=== PATIENT | female | born 1960 | race Caucasian/White ===

== ENCOUNTER → 2018-02-28 10:45 | Outpatient (CLI) | payer OTHER, SELFPAY ==
--- NOTE | 2018-02-28 10:47 | ECHOD_ITS ---
Reason For Study: SOB Procedure This was a 2D Doppler, Color Flow transthoracic echocardiogram. Exam performed in department. Left Ventricle Normal LV size. Left ventricular systolic function is normal. The estimated ejection fraction is 60 %. Transmitral and pulmonary venous doppler flow suggestive of impaired relaxation of left ventricle. No regional wall motion abnormalities noted. Right Ventricle Normal RV size. Normal systolic function. Atria Normal left atrium. Normal right atrium. Mitral Valve Normal mitral valve. Tricuspid Valve Normal tricuspid valve. Trivial tricuspid valve insufficiency. Aortic Valve Normal aortic valve. Trisinus/trileaflet aortic valve. Pulmonic Valve Normal pulmonic valve. Great Vessels Normal aortic root. The pulmonary artery is normal size. Normal inferior vena cava. Pericardium/Pleural No pericardial effusion. MMode/2D Measurements & Calculations LVIDd: 3.8 cm IVSd: 0.95 cm Ao root diam: 2.4 cm LVIDs: 2.4 cm LVPWd: 0.83 cm LA dimension: 4.1 cm RVDd: 3.1 cm FS: 35.4 % LAV(MOD-bp): 25.4 ml LA A4 area: 12.3 cm2 RA A4 area: 9.8 cm2 LAV(MOD-bp) Indexed: 14.0 ml/m2 LAV(MOD-sp2): 25.6 ml LAV(MOD-sp4): 25.6 ml Doppler Measurements & Calculations MV E max chase: 72.2 cm/sec Lat Peak E' Chase: 7.8 cm/sec Med Peak E' Chase: 7.7 cm/sec MV A max chase: 78.0 cm/sec E/E' lat: 9.3 E/E' med: 9.4 MV E/A: 0.93 Ao V2 max: 124.2 cm/sec LV V1 max: 93.0 cm/sec PA V2 max: 113.2 cm/sec Ao max P.2 mmHg LV V1 max P.5 mmHg Ao V2 mean: 89.6 cm/sec Ao mean P.5 mmHg Ao V2 VTI: 20.8 cm Interpretation Summary Normal LV size. Left ventricular systolic function is normal. The estimated ejection fraction is 60 %. Transmitral and pulmonary venous doppler flow suggestive of impaired relaxation of left ventricle Trivial tricuspid valve insufficiency. Ordering Physician: Aparna Doran Referring Physician: Aparna Doran Performed By: Nae Kelly, MIREYA, RVT
== END ==
PROVIDERS: Family Provider Nurse Practitioner; PCP Nurse Practitioner; Visit Provider Nurse Practitioner
DX: R06.02 Shortness of breath (principal)
CPT/HCPCS: 93306

== ENCOUNTER → 2018-09-13 16:39 | Outpatient (CLI) | payer OTHER, SELFPAY ==
--- NOTE | 2018-09-13 16:41 | CT_ITS ---
STUDY: CT ABDOMEN AND PELVIS WITH AND WITHOUT CONTRAST REASON FOR EXAM: Female, 57 years old. Left adrenal adenoma follow-up. Prior cholecystectomy. RADIATION DOSAGE (If Supplied By Facility): CTDIvol = ( 21.38 ) mGy, DLP = ( 1948.00 ) mGycm TECHNIQUE: Transaxial 3.75 mm enhanced and delayed upper abdominal images were obtained from the dome of the diaphragm to the symphysis pubis with oral contrast. 100 ml of Isovue 300 contrast was administered. Sagittal and coronal images were reconstructed. Individualized dose optimization techniques were used for this CT. COMPARISON: CT abdomen and pelvis 07/31/2017. 09/19/2016. 09/25/2015. FINDINGS: The visualized lung bases are unremarkable. The visualized portions of the heart are within normal limits. There is decreased attenuation of the enlarged liver consistent with steatosis. There are surgical clips in the gallbladder fossa consistent with a prior cholecystectomy. Normal spleen. Normal pancreas. Nodular enlargement of the left adrenal gland and normal-appearing right adrenal gland are stable findings.. The exophytic right mid renal cyst of 1.9 x 1.9 cm slightly hyperattenuated with 38 Hounsfield units likely a complex/slightly hemorrhagic cyst. This is also stable.. Exophytic low-attenuation renal cysts in the upper pole measure 1.4 x 1.2, lower pole 1.6 x 1.7 cm appear overall stable. Normal visualized stomach. Normal small intestine. Normal colon. The appendix is visualized and appears normal. There is minimal atherosclerotic calcification of the abdominal aorta, without a demonstrated aneurysm. Normal inferior vena cava. Normal retroperitoneum. Normal urinary bladder. The uterus is age appropriate. Normal abdominal wall. Age-appropriate osseous structures. Stable faint sclerosis L3 vertebral body since 2014 felt to be a benign entity. CT/CT Abd/Pelvis W/WO Contrast IMPRESSION: Left adrenal adenoma since 2014, felt to be a benign entity, no further follow-up is required. There is no acute abdomen and pelvic pathology. Stable hepatomegaly and hepatic steatosis, cholecystectomy, renal cysts, the right renal cyst appears complex, also stable since 2015, stable minimal arteriosclerosis and obesity. Electronically Signed: Daphney Manuel MD at 7:16 EST , Service support ,
== END ==
PROVIDERS: Family Provider Nurse Practitioner; PCP Nurse Practitioner; Referring Provider Nurse Practitioner; Visit Provider Nurse Practitioner
DX: D35.02 Benign neoplasm of left adrenal gland (principal)
CPT/HCPCS: 74178; Q9967

== ENCOUNTER → 2018-12-13 14:14 | Outpatient (CLI) | payer OTHER, SELFPAY ==
--- NOTE | 2018-12-13 14:18 | BI_ITS ---
MAMMOGRAPHY - BILATERAL SCREENING REASON FOR EXAM: Female, 58 years old. Routine annual screening examination. PERTINENT HISTORY: Non-contributory. Remote right excisional breast biopsy and bilateral stereotactic breast biopsies. Prior bilateral breast reduction surgery. TECHNIQUE: Digital bilateral breast carmina (3D mammographic acquisition) in the CC and MLO projections. 2-D mediolateral oblique (MLO) and craniocaudad (CC) views of both breasts were obtained. CAD: Full Field Digital Mammography with Computer Added Detection was performed. COMPARISON: Comparison is made with prior study dated June 29, 2017 and September 27, 2015. FINDINGS: Breast Composition: The breasts are almost entirely fatty. There are no dominant masses or suspicious calcifications. Stable appearance of the 6.2 mm calcified nodule in the upper anterior lateral aspect of the left breast. A tissue clip marker is seen in the retroareolar regions of both breasts. Stable appearance of the benign appearing axillary lymph nodes. No other significant abnormalities are identified. There has been no significant change since the prior study. BI/SCREENING MAMM (CAD), BILAT IMPRESSION: Stable bilateral screening mammogram. Yearly follow-up mammogram recommended. (A) ASSESSMENT CATEGORY: BIRADS Category 2: Benign. A letter regarding these results will be sent to the patient by the facility within 30 days. Approximately 10% of breast cancers are not detected by mammography. A normal mammogram should not delay biopsy of a clinically suspicious abnormality. [id number] Electronically Signed: Syd Caballero MD at 15:46 EST , Service support ,
--- NOTE | 2018-12-13 14:22 | BD_ITS ---
STUDY: DUAL ENERGY X-RAY ABSORPTIOMETRY / DXA REASON FOR EXAM: Female, 58 years old. The patient is postmenopausal. Loss of height. TECHNIQUE: Bone Mineral Density (BMD) measurements of lumbar spine and bilateral hips were obtained. COMPARISON: None. FINDINGS: Lumbar Spine (L1-L4): g/cm2 (0.966) / T-score (-1.7) / Z-score (-0.8) Findings are suggestive of osteopenia with a moderate fracture risk. Left Femur Total: g/cm2 (0.904) / T-score (-0.8) / Z-score (-0.1) Left Femoral Neck: g/cm2 (0.829) / T-score (-1.5) / Z-score (-0.5) Right Femur Total: g/cm2 (0.914) / T-score (-0.7) / Z-score (0.0) Right Femoral Neck: g/cm2 (0.857) / T-score (-1.3) / Z-score (-0.3) BD/Dexa Bone Density Study IMPRESSION: The patient is considered osteopenic as outlined below according to World [place] Organization (WHO) criteria with a moderate fracture risk. Reference Information: The T-score is the number of standard deviations above or below the standard which is normal for young adults at their peak bone mineral density. The World Health Organization (WHO) interprets the T-scores as follows: Above -1 Normal bone density Between -1 and -2.5 Osteopenia Equal to / or below -2.5 Osteoporosis As a practical clinical guideline, osteopenia may be graded as follows: Mild -1 through -1.5 Moderate -1.6 through -2.0 Severe -2.1 through -2.4 The Z-score is the number of standard deviations above or below age-matched controls. A Z-score of less than -1.5 would be considered abnormal. References: 1. NIH Osteoporosis and Related Bone Diseases http://www.osteo.org 2. International Society for Clinical Densitometry http://www.iscd.org 3. National Osteoporosis Foundation http://www.nof.org Electronically Signed: Syd Caballero MD at 15:27 EST , Service support ,
== END ==
PROVIDERS: Family Provider Nurse Practitioner; PCP Nurse Practitioner; Referring Provider Nurse Practitioner; Visit Provider Nurse Practitioner
DX: Z12.31 Encounter for screening mammogram for malignant neoplasm of breast (principal); Z78.0 Asymptomatic menopausal state
CPT/HCPCS: 77063; 77067; 77080

== ENCOUNTER → 2018-12-16 13:45 | Outpatient (CLI) | payer OTHER, SELFPAY | PROVIDERS: Visit Provider Obstetrics & Gynecology | DX: N39.0 Urinary tract infection, site not specified (principal) | CPT/HCPCS: 87086; 87088 ==

== ENCOUNTER → 2019-01-30 12:03 | Outpatient (CLI) | payer OTHER, SELFPAY ==
[2019-01-30 12:25] LABS: Potassium 5.1 mmol/L (3.5-5.1)
== END ==
PROVIDERS: Referring Provider Nurse Practitioner; Visit Provider Nurse Practitioner
DX: E87.5 Hyperkalemia (principal)
CPT/HCPCS: 84132

== ENCOUNTER → 2019-02-15 | Outpatient (CLI) | payer OTHER, SELFPAY ==
[2019-02-20 10:13] LABS: HPV Reflexed? NOT INDICATED
== END | disposition home or self-care (01) ==
LOC: LABSPEC 13:54
PROVIDERS: Visit Provider Obstetrics & Gynecology
DX: Z12.4 Encounter for screening for malignant neoplasm of cervix (principal)
CPT/HCPCS: 88175; G0145

== ENCOUNTER 2019-05-21 21:51 | Emergency (ER) | payer OTHER, SELFPAY ==
[2019-05-21 21:52] VITALS: BP 153/80; PULSE 89; RESP 18; TEMP 36.6; O2SAT 99; BMI 36.1
[2019-05-21 22:01] LABS: Bedside Glucose 126 mg/dL (70-110)
--- NOTE | 2019-05-21 22:16 | CT_ITS ---
STUDY: CT BRAIN WITHOUT CONTRAST REASON FOR EXAM: Female, 58 years old. Dizzy. RADIATION DOSAGE (If Supplied By Facility): CTDIvol = ( 44.99 ) mGy, DLP = ( 711.75 ) mGycm TECHNIQUE: Transaxial CT imaging of the brain was performed without administration of intravenous contrast material. Individualized dose optimization techniques were used for this CT. COMPARISON: April 14, 2017 FINDINGS: Normal soft tissue structures. Normal calvarium. Normal size ventricles and extra-axial spaces for the patient's age. Normal white matter tracts of the cerebral hemispheres. Normal basal ganglia and thalami. Normal brainstem. Normal cerebellum. There is no intracranial hemorrhage. There are no findings of an acute ischemic infarction. Normal visualized paranasal sinuses. CT/Brain/Head without Contrast IMPRESSION: No acute intracranial process. Electronically Signed: Jennifer Ceron MD at 23:02 EDT Tel , Service support ,
--- NOTE | 2019-05-21 22:18 | ED.VISSUMM ---
- ER Visit Summary Date of Service: 05/21/19 Chief Complaint: Dizziness History of Present Illness: The patient is a 58 F who presents with dizziness that began today. Patient describes her dizziness as off-balance sensation. Patient states she was having difficulty walking straight. Patient also states she felt like the room was spinning. Patient states this is worse with walking and worse with certain head movements. Patient denies any headaches. Patient admits to some nausea and vomiting. Patient admits to subjective chills but denies any fevers. Patient denies any visual changes. Patient denies any chest pain or shortness of breath. Physical Examination: Vital signs are stable. Patient is afebrile. Patient is in no acute distress. Pupils are equal, round, and reactive to light bilaterally. Extraocular muscles are intact. There is no nystagmus noted. Oral mucosa is pink and moist. Neck is supple. Trachea is midline. There is no JVD noted. Heart was regular rate and rhythm. Lungs are clear and equal bilateral. Abdomen is soft. Bowel sounds are normal. There is no tenderness. There is no guarding noted. Skin is warm dry. Cranial nerves II through XII are intact. There are no focal motor or sensory deficits noted. The remaining physical exam is within normal limits. Test Results: CBC showed mild leukocytosis of 14.7. Creatinine was slightly elevated at 1.17 and BUN was 23. Urinalysis shows leukocyte esterase of 500 with 10-25 white blood cells. There were no bacteria seen. Urine culture was ordered. CT scan of the brain was obtained. There is no acute intracranial abnormality. Emergency Department Course and Treatment: Patient was given IV fluids here. Patient was ordered Zofran but had this by EMS. Patient states she did not feel any better after the Zofran by EMS. Patient was given a dose of Phenergan instead. Patient was feeling better with the nausea. Patient was given a dose of meclizine here and a prescription for meclizine. Patient was also given a prescription for Bactrim for urinary tract infection. Patient was given her first dose here. Patient was instructed to follow-up with her primary care physician in 5 to 7 days. Patient understood and was agreeable with the plan. All questions were answered. Disposition: Discharge home Impression: 1. Vertigo 2. Urinary tract infection This note was generated with [employer] software. It may contain incorrect words, spelling, and punctuation that were not noted in review of the chart prior to signing ED Disposition - Plan for ED Patient: Disposition: Home or Assisted Living Diagnosis: Vertigo, Urinary tract infection Instructions: VERTIGO, Unspecified, Bladder Infection, Female (Adult) Prescriptions: Smz/Tmp Ds [Bactrim Ds] 1 tab PO BID #6 tab Prescription Printed Meclizine HCl 25 mg PO Q8H PRN PRN #20 tab PRN Reason: Dizziness Prescription Printed Referrals: Aparna Doran NP-C [Primary Care Provider] - 5-7 Days
[2019-05-21 22:40] LABS: Absolute Neutrophil Count 10.6 X10^3/uL (2.0-7.7); Basophil# 0.04 X10^3/uL; Basophil% 0.3 % (0-1); Eosinophil# 0.13 X10^3/uL; Eosinophils% 0.9 % (0-5); Hematocrit 40.3 % (37-47); Hemoglobin 13.8 g/dl (12.0-15.0); Lymphocyte % 19.7 % (19-41); Mean Corp Hgb Conc 34.2 g/gl (32-36); Mean Corpuscular Hgb 32.9 pg (27.0-32.0); Mean Platelet Vol. 10.6 fl (6.2-12.0); Monocyte# 1.01 X10^3/uL; Monocyte% 6.9 % (0-10); Platelet Count 214 K/mm3 (150-450); RBC Distribution Width CV 12.9 % (11.6-14.6); RBC Distribution Width SD 43.7 fl (35.1-43.9); White Blood Count 14.7 K/mm3 (4.4-11.0)
[2019-05-21 22:48] LABS: POSITIVE COUNT NO; POSITIVE DIFFERENTIAL NO; POSITIVE MORPHOLOGY NO
[2019-05-21 22:52] LABS: Anion Gap 9 (5-15); BUN 23 mg/dL (7-18); BUN/Creat Ratio 19.7 RATIO (10-20); Calcium,Total 9.2 mg/dL (8.5-10.1); Chloride 109 mmol/L (98-107); Creatinine, Serum 1.17 mg/dL (0.55-1.02); EST Glomerular Filtration Rate 51 mL/min (>60); Est Glom Filt Rate - Afr Amer 61 mL/min (>60); Estimated Creatinine Clearance 38.56 ml/min; Glucose 122 mg/dL (74-106); Potassium 4.4 mmol/L (3.5-5.1); Sodium Level 141 mmol/L (136-145)
[2019-05-21 23:11] LABS: Bacteria 0 SEEN /hpf (None Seen); Mucous, Urine 0 SEEN /hpf (<or=2+)
[2019-05-21 23:16] LABS: Color, Urine Yellow (Yellow); Glucose, Dipstick Normal (Normal); Ketone-Dipstick 15 mg/dl (Negative); Leukocyte Esterase-Dipstick 500 /ul (Negative); Nitrite-Dipstick Negative (Negative); Occult Blood-Urine Negative /ul (Negative); Protein-Dipstick 15 mg/dl (Negative); Urine Bilirubin Dipstick Negative (Negative); Urine Clarity Sl. Cloudy (Clear); Urine Urobilinogen Normal (Normal)
[2019-05-21 23:20] VITALS: BP 127/67; PULSE 102; RESP 17; O2SAT 97
[2019-05-21] MEDS: 0.9% Normal Saline 1,000 ML 1000 ML IV (23:20)
[2019-05-21] MEDS: proMETHazine 25 MG/ML Syringe 6.25 MG IV (23:21)
[2019-05-21 23:23] LABS: Red Blood Cells-Urine 0 SEEN /hpf (0-5); Squamous Epithelial Cells - UA 0-5 SEEN /hpf (5-10); White Blood Cells 10-25 SEEN /hpf (0-5)
[2019-05-21 23:25] LABS: Amorphous Sediment 1+ URATE
[2019-05-22 00:03] VITALS: BP 129/72; PULSE 99; RESP 19; O2SAT 97
[2019-05-22] MEDS: Meclizine HCl 25 MG Tablet PO (00:04)
[2019-05-22] MEDS: Smz/Tmp Ds Tablet 1 TABLET PO (00:05)
== END 2019-05-22 00:12 | disposition home or self-care (01) ==
PROVIDERS: Emergency Provider Emergency Medicine; Family Provider Nurse Practitioner; PCP Nurse Practitioner
DX: R42 Dizziness and giddiness (principal); N39.0 Urinary tract infection, site not specified; E11.9 Type 2 diabetes mellitus without complications; I10 Essential (primary) hypertension; E03.9 Hypothyroidism, unspecified; E78.00 Pure hypercholesterolemia, unspecified; Z79.84 Long term (current) use of oral hypoglycemic drugs; Z79.899 Other long term (current) drug therapy
CPT/HCPCS: 36415; 70450; 80048; 81001; 82962; 85025; 87086; 87088; 96361; 96374; 99285; J7030; A4216; J2405

== ENCOUNTER 2019-06-03 13:12 | Emergency (ER) | payer OTHER, SELFPAY ==
[2019-06-03 13:12] VITALS: BP 139/90; PULSE 95; RESP 16; TEMP 36.4; O2SAT 96; BMI 34.2
[2019-06-03] MEDS: Diphth,Pertuss(Acell),Tet Vac 0.5 ML Vial IM (13:58)
[2019-06-03] MEDS: Amox/Clavulanate 875 MG Tablet PO (14:00)
--- NOTE | 2019-06-03 14:01 | ED.VISSUMM ---
- ER Visit Summary Date of Service: 06/03/19 Chief Complaint: Right ring finger dog bite History of Present Illness: The patient is a 58 F history of vxm-ubibslp-zqvlsouac diabetes and hypertension. [id number]. She was playing with her dog and the dog bit her on her right ring finger. This occurred approximately 6:30 AM this morning. About 6 hours ago. Since that time she had pain and swelling in the finger. Physical Examination: Well-appearing middle-aged female. Vital signs are stable afebrile. HEENT exam unremarkable. Lungs clear to auscultation. Heart regular rhythm. Extremities moves all 4. Neurovascular intact. Her weights ring finger has dog bites on both the palmar and dorsal surface at the proximal phalanx. There is soft tissue swelling. It is slightly red. Is currently not warm. There is no lymphangitic streaking. There is no pus. There is no tender or swollen lymph nodes view of the elbow with the axilla. She is able to completely extend the right long finger she has trouble with flexion due to pain and swelling. Clinically there is no bony deformity. The tip of the finger has normal touch sensation and cap refill. The dog bite lacerations 3 of the forearm or the puncture wound. The fourth is a 1-1/2 cm laceration. Test Results: Discussed x-ray with the patient she deferred.. Clinically I do not think she has any bony abnormality. Emergency Department Course and Treatment: Wound to be clean and dressed. Her tetanus will be updated. She is unsure of her last tetanus status and thinks it may be 10 years or greater. She will be started on Augmentin 875 twice daily and first dose given while in the ER. She denied discussed options and we chose to not close the right small finger wounds. Cosmetically it should be of little significance. And the risk of infection was higher with closure. She knows to return immediately if she starts getting redness up into her hand or forearm along with streaks or fever. Treatment Plan: Clean the wound. Augmentin twice daily. Watch for worsening infection is seen return Disposition: Discharge Impression: Right ring finger dog bite Tetanus updated History of diabetes This note was generated with [employer] dictation software. It may contain incorrect words, spelling, and punctuation that were not noted in review of the chart prior to signing ED Disposition - Plan for ED Patient: Referrals: Aparna Doran, CT SCAN TECH-C [Primary Care Provider] -
--- NOTE | 2019-06-03 14:06 | ED.DEP ---
ED Disposition - Plan for ED Patient: Disposition: Home or Assisted Living Instructions: Dog Bite Prescriptions: Amoxicillin/Potassium Clav [Augmentin 875-125 Tablet] 1 ea PO BID #20 tab Prescription Printed Referrals: Aparan Doran NP-C [Primary Care Provider] - 3-5 Days if not improving Additional Instructions: Return if increasing swelling and redness going in your hand or up your wrist and forearm. Also if you see pus or red streaks. Ice and elevate. To decrease pain and swelling. Tylenol Motrin for pain. Augmentin 1 pill twice a day with food on your stomach until prescription is finished in 10 days. Pain your wound twice daily and of antibiotic ointment.
[2019-06-03 14:41] VITALS: BP 135/88; PULSE 90; RESP 16
== END 2019-06-03 14:43 | disposition home or self-care (01) ==
PROVIDERS: Emergency Provider Emergency Medicine; Family Provider Nurse Practitioner; PCP Nurse Practitioner
DX: S61.254A Open bite of right ring finger without damage to nail, initial encounter (principal); E11.9 Type 2 diabetes mellitus without complications; I10 Essential (primary) hypertension; Z23 Encounter for immunization; Z79.84 Long term (current) use of oral hypoglycemic drugs; Z79.899 Other long term (current) drug therapy; W54.0XXA Bitten by dog, initial encounter; Y93.89 Activity, other specified; Y92.099 Unspecified place in other non-institutional residence as the place of occurrence of the external cause; Y99.8 Other external cause status
CPT/HCPCS: 90471; 90715; 99283

== ENCOUNTER 2019-06-05 12:32 | Inpatient (IN) | payer OTHER, SELFPAY ==
[2019-06-05 12:33] VITALS: BP 140/78; PULSE 79; RESP 16; TEMP 36.6; O2SAT 98; BMI 34.8
--- NOTE | 2019-06-05 13:41 | ED.VISSUMM ---
- ER Visit Summary Date of Service: 06/05/19 Chief Complaint: Redness and swelling to right hand History of Present Illness: The patient is a 58 F who presents with redness and swelling to her right hand that is been getting progressively worse over the past 3 days. Patient states her dog bit her 3 days ago. Patient was seen here at that time and was given a prescription for Augmentin. Patient states the redness and swelling has gotten worse. Patient states the pain is worse with movement and improves with rest. Patient denies any paresthesias or weakness. Patient saw her primary care nurse practitioner today who referred to the emergency department for possible admission. Physical Examination: Vital signs are stable. Patient is afebrile. Patient is in no acute distress. There is tenderness, edema, and erythema over the right ring finger and dorsal aspect of the right hand. There is no pain over the flexor tendon. There is pain with complete extension of the right ring finger. There is no deformity noted. There is a 1.5 cm laceration on the proximal phalanx of the right ring finger. There is no bleeding noted. Capillary refill is less than 2 seconds in all digits. Radial pulses are equal bilaterally. Sensation was intact to light touch in all digits. Heart was regular rate and rhythm. Lungs are clear and equal bilaterally. Test Results: CBC showed a slight leukocytosis of 11.0. Creatinine was 1.11. X-rays of the right hand were obtained. There is a nondisplaced fracture of the base of the fourth middle phalanx. Emergency Department Course and Treatment: Patient was given a dose of Unasyn here. Case was discussed with Dr. Bailon. He does not take care of hand infections. Case was also discussed with Dr. Tao. She also does not take care of hand infections and referred the patient to Dr. Vera. Dr. Vera was paged. I am currently awaiting return of his phone call. Case was also discussed with the hospitalist for admission. Disposition: Admit to Hospital Impression: 1. Cellulitis right hand 2. Open fracture right fourth middle phalanx This note was generated with [employer] software. It may contain incorrect words, spelling, and punctuation that were not noted in review of the chart prior to signing ED Disposition - Plan for ED Patient: Disposition: Acute Care Hospital [facility] Diagnosis: Cellulitis of right hand, Open fracture of middle phalanx of finger of right hand Referrals: Aparna Doran, TECHNICAL EXPERT-C [Primary Care Provider] -
[2019-06-05 13:43] LABS: Absolute Lymphocyte Count 2.94 X10^3/uL (0.83-4.51); Absolute Neutrophil Count 6.9 X10^3/uL (2.0-7.7); Basophil# 0.06 X10^3/uL; Basophil% 0.5 % (0-1); Eosinophil# 0.25 X10^3/uL; Eosinophils% 2.3 % (0-5); Hematocrit 43.1 % (37-47); Hemoglobin 14.2 g/dL (12.0-15.0); Lymphocyte # 2.94 X10^3/ul (4.0); Lymphocyte % 26.7 % (19-41); Mean Corp Hgb Conc 32.9 g/dL (32-36); Mean Corpuscular Hgb 33.1 pg (27.0-32.0); Mean Corpuscular Volume 100.5 fL (81-99); Mean Platelet Vol. 10.3 fl (6.2-12.0); Monocyte# 0.86 X10^3/uL; Monocyte% 7.8 % (0-10); NRBC Flagged by Analyzer 0 % (0-5); Neutrophil # 6.87 X10^3/uL (2.7-7.7); Neutrophil % 62.5 % (47-70); Platelet Count 217 K/mm3 (150-450); RBC Distribution Width CV 13.2 % (11.6-14.6); RBC Distribution Width SD 48.9 fl (35.1-43.9); Red Blood Count 4.29 M/mm3 (4.2-5.4)
--- NOTE | 2019-06-05 13:48 | RAD_ITS ---
STUDY: X-RAY - RIGHT HAND REASON FOR EXAM: Female, 58 years old. Pain following a dog bite. TECHNIQUE: 3 view(s) of the hand. COMPARISON: None. FINDINGS: Normal radiocarpal articulation. Normal distal radioulnar joint. Normal visualized carpal bones. Normal carpal articulations Normal carpometacarpal articulation of the thumb. Normal second through fifth carpometacarpal joints. Normal metacarpi. Normal metacarpophalangeal joint of the thumb. Normal interphalangeal joint of the thumb. Normal proximal and distal phalanges of the thumb. Normal metacarpophalangeal joints of the second through fifth fingers. Normal proximal and distal interphalangeal joints of the second through fifth fingers. Nondisplaced fracture at the base of the middle phalanx of the fourth digit. Soft tissue swelling. RAD/Hand Min 3 Views IMPRESSION: Nondisplaced fracture at the base of the middle phalanx of the fourth digit with overlying soft tissue swelling. Electronically Signed: Syd Caballero, at 14:08 EDT , Service support ,
[2019-06-05 13:53] LABS: Anion Gap 5 (5-15); BUN 21 mg/dL (7-18); BUN/Creat Ratio 18.9 RATIO (10-20); Calcium,Total 9.8 mg/dL (8.5-10.1); Chloride 103 mmol/L (98-107); Creatinine, Serum 1.11 mg/dL (0.55-1.02); EST Glomerular Filtration Rate 54 mL/min (>60); Est Glom Filt Rate - Afr Amer 65 mL/min (>60); Estimated Creatinine Clearance 40.65 ml/min; Glucose 112 mg/dL (74-106); Potassium 4.6 mmol/L (3.5-5.1); Sodium Level 136 mmol/L (136-145)
[2019-06-05 15:13] VITALS: BP 126/78; PULSE 81; RESP 14; O2SAT 98
--- NOTE | 2019-06-05 17:22 | PCM.HP.STD ---
<Keven Olivarez - Last Filed: 06/05/19 17:25> Problem List (1) Open fracture of middle phalanx of finger of right hand Status: Acute (2) Cellulitis of right hand Status: Acute (3) Diabetes Status: Chronic Qualifiers: Diabetes mellitus type: type 2 (4) Obesity Status: Chronic (5) Former smoker Status: Chronic History of Present Illness Date of Admission: 06/05/19 Chief Complaint: right hand swelling The patient is a 58 year old F with past medical history of type 2 diabetes, former smoker, who presented to the emergency room with complaints of right hand swelling. The patient was bitten by her dog accidentally on Wednesday, 2 days prior. The dog's teeth penetrated from one side of her right fourth digit through the skin on the other side, with complete passage through her finger. She came to the emergency room and was given Augmentin and sent home. She followed up with her PCP today and her hand was more swollen, she had decreased range of motion in her fourth digit, she had erythema up through her wrist, and severe pain. She appears to have developed worsening of cellulitis in her right hand from the wound on her right finger. She also had an x-ray done of her right hand which showed a nondisplaced right middle phalanx fracture. Other than her hand she has no other complaints. She is no fevers or chills, body aches, nausea or vomiting, diarrhea. She has no numbness or tingling in the affected hand. Dr. Vera was contacted by the emergency room and agreed to see the patient. [] Past Medical History Past Medical History (Chronic Problems): Chronic Problems Diabetes (Chronic) Obesity (Chronic) Former smoker (Chronic) Allergies adhesive Allergy (Verified 06/05/19 12:35) Rash Home Medications: Ambulatory Orders Medication Instructions Recorded Alprazolam 1 tab PO DAILY PRN PRN 03/15/15 Duloxetine Hcl [Cymbalta] 60 mg PO QHS 03/15/15 Gabapentin [Neurontin] 600 mg PO DAILY 03/15/15 Levothyroxine [Synthroid] 75 mcg PO DAILY 03/15/15 Lisinopril [Zestril] 40 mg PO QHS 03/15/15 Metoprolol(XL)Succ [Toprol Xl 50 mg PO QHS 05/08/15 (Beta Laurel)] metFORMIN HCl [Glucophage] 1,000 mg PO BIDCM 03/15/15 Hydrocodone/Acetaminophen [Vicodin 1 tablet PO Q4H PRN PRN #30 tablet 03/21/15 5-300 mg Tablet] busPIRone [Buspar] 10 mg PO BID 07/31/17 Simvastatin 40 mg PO DAILY 08/10/17 Meclizine HCl 25 mg PO Q8H PRN PRN #20 tab 05/21/19 Smz/Tmp Ds [Bactrim Ds] 1 tab PO BID #6 tab 05/21/19 Amoxicillin/Potassium Clav 1 ea PO BID #20 tab 06/03/19 [Augmentin 875-125 Tablet] Surgical History: cholecystectomy, - - spinal surgery Psychiatric History: No pertinent psych hx DIRECTOR OF EDUCATION AND TRAINING History: No pertinent DIRECTOR OF EDUCATION AND TRAINING history Lives: Alone Smoking Status: Former smoker Tobacco Use: Non-smoker Alcohol: None Drugs: None - *Family History Maternal History Items: No pertinent history Paternal History Items: Heart Disease Review of Systems Constitutional: Denies: Chills, Fever, Weakness, Weight Change, Fatigue HEENT: Denies: Head Aches, Sinus Congestion, Sinus Drainage Cardiovascular: Denies: Chest Pain, Chest Pressure, Edema, Light Headedness, Palpitations Respiratory: Denies: Cough, Shortness of Breath, Shortness of breath at rest, Sputum production Gastrointestinal: Denies: Abdominal Pain, Diarrhea, Nausea, Vomiting Genitourinary: Denies: Dysuria Musculoskeletal: Denies: Joint Pain, Joint Tenderness Skin: Reports: Wounds - wound right fourth digit. Denies: Rash Neurological: Denies: Numbness, Tingling, Focal weakness Psychiatric: Denies: Anxiety, Depression, Homicidal Ideations, Suicidal Ideations Hematologic/ Lymphatic: Denies: Easy Bruising, Easy Bleeding VTE Information - Inpt Only VTE Present on Admission: No VTE Mechan Device Prophylaxis: None VTE Pharm Prophylaxis ordered?: Yes Patient Problems: Active and Suspected Problems Cellulitis of right hand (Acute) Open fracture of middle phalanx of finger of right hand (Acute) - Physical Exam General: Alert, Oriented x3, Cooperative HEENT: Atraumatic, PERRLA, EOMI, Normocephalic Neck: Supple, No JVD, Negative Carotid Bruits Lungs: Clear to auscultation, Normal air movement Cardiovascular: Regular rate, No murmurs Abdomen: Bowel Sounds Present, Soft, Non Tender Extremities: No edema, Capillary Refill Less than 3 Seconds Skin: - - There is a puncture wound on the right fourth digit, no drainage, with surrounding erythema, swelling, decreased ROM secondary to swelling and pain, with erythema extending through the wrist. Pulses intact. Sensation intact. Musculoskeletal: No Tenderness to Palpation of Joints or Extremities, - Neurological: Cranial nerves II-XII grossly intact Psych/Mental Status: Normal Affect, Appropriate, Alert and oriented to time, place, person, mood and affect Vital Signs Temp Pulse Resp BP Pulse Ox 98 F 81 14 126/78 H 98 06/05/19 12:33 06/05/19 15:13 06/05/19 15:13 06/05/19 15:13 06/05/19 15:13 Oxygen Delivery Method Room Air Weight: 178 lb 5.663 oz Body Mass Index (BMI) 34.8 Laboratory Tests Past 24 Hrs 06/05/19 06/05/19 13:15 13:15 WBC 11.0 RBC 4.29 Hgb 14.2 Hct 43.1 MCV 100.5 H MCH 33.1 H MCHC 32.9 RDW Std Deviation 48.9 H RDW Coeff of Ramana 13.2 Plt Count 217 MPV 10.3 Immature Gran % (Auto) 0.200 Neut % (Auto) 62.5 Lymph % (Auto) 26.7 Mcdowell % (Auto) 7.8 Eos % (Auto) 2.3 Baso % (Auto) 0.5 Absolute Neuts (auto) 6.9 Absolute Lymphs (auto) 2.94 Nucleated RBC % 0 Sodium 136 Potassium 4.6 Chloride 103 Carbon Dioxide 28.0 Anion Gap 5 BUN 21 H Creatinine 1.11 H Estim Creat Clear Calc 40.65 Est GFR (MDRD) Af Amer 65 Est GFR (MDRD) Non-Af 54 L BUN/Creatinine Ratio 18.9 Glucose 112 H Calcium 9.8 Assessment/Plan All Active Problems Cellulitis of right hand (Acute) Open fracture of middle phalanx of finger of right hand (Acute) Postmenopausal bleeding (Acute) 1. Acute cellulitis right fourth digit, extending into the hand and wrist-secondary to dog bite. Failed Augmentin as outpatient. Will start Vancomycin and Zosyn. Dr. Vera will be consulted for possible surgical intervention if she fails to respond to antibiotics. She has no fever, no leukocytosis, and does not complain of fevers or chills. 2. Acute right middle phalanx fracture-complicating above. 3. Type 2 diabetes with morbid obesity-hold metformin, provide sliding scale insulin. Dietary consult 4. Former smoker-denies underlying COPD or asthma, she did smoke for 30 years. 5. History of osteoarthritis of the spine with prior spinal surgery. She is in pain management for this. 6. Anxiety and depression-continue home medications. 7. Hypothyroidism-continue Synthroid DVT prophylaxis: Lovenox This patient was seen by Keven Olivarez PA-C under the supervision of Doctor Dandre. <Travis Amos - Last Filed: 06/05/19 17:47> History of Present Illness Patient is a 58-year-old female with multiple comorbidities including type 2 diabetes mellitus came to ED with right head swelling, pain for last 2 days. Earlier she had her dog bite on the volar aspect of right fourth disease through and through. She was sent home on Augmentin on past Wednesday. The hand swelling and pain got worse on extended more proximally to include palm and therefore came to ED. In ER, x-ray shows nondisplaced right middle phalanx fracture. Denies any fever or chills, nausea vomiting or headache. Dr. Vera is being consulted from ER physician. Past Medical History Allergies adhesive Allergy (Verified 06/05/19 12:35) Rash - Physical Exam General: Alert, Oriented x3, Cooperative HEENT: Atraumatic, PERRLA, EOMI, Normocephalic Neck: Supple, No JVD, Negative Carotid Bruits Lungs: Clear to auscultation, Normal air movement, No rhonchi, No wheeze, No rales Cardiovascular: Regular rate, Regular Rhythm, Normal S1, Normal S2, No murmurs Abdomen: Bowel Sounds Present, Soft, Non Tender, Non-Distended Extremities: No edema, Capillary Refill Less than 3 Seconds Skin: No rashes, No breakdown, - - There is a puncture wound on the right fourth digit, no drainage, with surrounding erythema, swelling, decreased ROM secondary to swelling and pain, with erythema extending through the wrist. Pulses intact. Sensation intact. Tenderness, and duration and erythema extending up to the wrist/distal forearm. Scar fiorella of bug bite present from volar aspect to dorsal aspect of right ring finger. Pulses are intact. Nails are pink in color. Patient denies paresthesia Musculoskeletal: No Tenderness to Palpation of Joints or Extremities, Arthritic Changes Neurological: Cranial nerves II-XII grossly intact, Deep Tendon Reflexes 2+/4 and Symmetrical, Neuro grossly intact, Motor Exam 5/5 strength throughout Psych/Mental Status: Normal Affect, Appropriate Vital Signs Temp Pulse Resp BP Pulse Ox 98 F 81 14 126/78 H 98 06/05/19 12:33 06/05/19 15:13 06/05/19 15:13 06/05/19 15:13 06/05/19 15:13 Oxygen Delivery Method Room Air Weight: 178 lb 5.663 oz Body Mass Index (BMI) 34.8 Laboratory Tests Past 24 Hrs 06/05/19 06/05/19 13:15 13:15 WBC 11.0 RBC 4.29 Hgb 14.2 Hct 43.1 MCV 100.5 H MCH 33.1 H MCHC 32.9 RDW Std Deviation 48.9 H RDW Coeff of Ramana 13.2 Plt Count 217 MPV 10.3 Immature Gran % (Auto) 0.200 Neut % (Auto) 62.5 Lymph % (Auto) 26.7 Mcdowell % (Auto) 7.8 Eos % (Auto) 2.3 Baso % (Auto) 0.5 Absolute Neuts (auto) 6.9 Absolute Lymphs (auto) 2.94 Nucleated RBC % 0 Sodium 136 Potassium 4.6 Chloride 103 Carbon Dioxide 28.0 Anion Gap 5 BUN 21 H Creatinine 1.11 H Estim Creat Clear Calc 40.65 Est GFR (MDRD) Af Amer 65 Est GFR (MDRD) Non-Af 54 L BUN/Creatinine Ratio 18.9 Glucose 112 H Calcium 9.8 Assessment/Plan This patient was seen in conjunction with Keven BAEZ. I have independently interviewed and examined the patient and reviewed pertinent history, examination findings, laboratory and plan of management. I have reviewed the note and agree with the documented findings with the few additional points. In brief, patient is admitted for cellulitis along with middle phalanx fracture of right fourth finger with failure of outpatient antibiotic, Augmentin: Patient is started on IV vancomycin and Zosyn. Dr. Vera is consulted for possible surgical intervention if needed. For right middle phalanx fracture probably need splinting with middle finger. Further opinion as by Dr. Vera. Other multiple comorbidities include type 2 diabetes mellitus with morbid obesity, former smoker, anxiety and depression due to joint disease. Patient has smoking history since teenage and quit in 2012 with total smoking of 30 years. Denies peripheral arterial disease. I have discussed my assessment with Keven BAEZ and orders have been reviewed. Code Visit Inpatient E&M: 00705 Init Hosp L3
[2019-06-05 17:40] VITALS: RESP 18
[2019-06-05] MEDS: Ondansetron 4 MG/2 ML Vial IV (17:49)
[2019-06-05] MEDS: Morphine 4 MG/ML Syringe IV (17:49)
[2019-06-05 18:16] VITALS: BMI 34.3
[2019-06-05] MEDS: 0.9% Normal Saline 1,000 ML 75 ML IV (18:30)
[2019-06-05 18:32] VITALS: BP 118/71; PULSE 79; RESP 18; TEMP 36.8; O2SAT 95
[2019-06-05 18:34] VITALS: BMI 34.3
[2019-06-05] MEDS: oxyCODONE 5 MG Tablet 10 MG PO (18:55)
--- NOTE | 2019-06-05 19:11 | PCM.RX.CS ---
Consult Pharmacy has been consulted to manage selected antiobiotic: Vancomycin Type of Consult: New start Suspected Infection: Skin/Soft tissue Labs: Sodium 136 mmol/L (136-145) 06/05/19 13:15 Potassium 4.6 mmol/L (3.5-5.1) 06/05/19 13:15 Chloride 103 mmol/L (98-107) 06/05/19 13:15 Carbon Dioxide 28.0 mmol/L (21.0-32.0) 06/05/19 13:15 5 (5-15) 06/05/19 13:15 BUN 21 mg/dL (7-18) H 06/05/19 13:15 1.11 mg/dL (0.55-1.02) H 06/05/19 13:15 Est GFR (MDRD) Af Amer 65 mL/min (>60) 06/05/19 13:15 Est GFR (MDRD) Non-Af 54 mL/min (>60) L 06/05/19 13:15 18.9 RATIO (10-20) 06/05/19 13:15 Glucose 112 mg/dL (74-106) H 06/05/19 13:15 Weight used for dosin lb 7.807 oz Estimated Creatinine Clearance: 53 Goal Trough: 10-15 mcg/mL Pharmacy Plan for Drug Dosing: Loading dose of 15mg/kg (1250mg) given on 06/05 at 1853 Calculated dose of 1500mg q24h to maintain a trough of 10-15 Trough will be drawn on 06/07 at 1830 Pharmacy Service will continue to monitor and adjust dosing as required. Follow-Up Labs: Trough Vancomycin
--- NOTE | 2019-06-05 19:40 | PCM.CONS.GEN ---
Reason for Consult Date of Consultation: 06/05/19 Reason for Consultation: Dog bite infection right ring finger with cellulitis. REFERRING PHYSICIAN: Dr. Amos. RADIOLOGY RN: Dr. Vera. History of Present Illness: The patient is a 58 year old F with past medical history of type 2 diabetes and former smoker was admitted today for worsening dog bite right ring finger. o presented to the emergency room with complaints of right hand swelling. The patient was bitten by her dog, (10 year old Felicia Haas) accidentally two days prior to admission on 06/03/19. The dog's teeth penetrated from one side of her right ring finger through the skin on the other side, with complete passage through her finger. Initially she was given Augmentin. She followed up with her PCP today who sent her to the ED for admission. The patient was developing increasing redness, increasing swelling, and increasing pain. X-ray was done of her right hand which showed nondisplaced fracture at the base of the middle phalanx of the fourth digit with overlying soft tissue swelling. Her WBC was 11.0. She denied any fever. She was admitted and started on Vancomycin and Zosyn. I was asked to evaluate this patient for surgical options for treatment. Past Medical History Past Medical History (Chronic Problems): Chronic Problems Depression (Chronic) Hyperlipidemia (Chronic) Hypertension (Chronic) Hypothyroidism (Chronic) Type 2 diabetes mellitus (Chronic) Obesity (Chronic) Former smoker (Chronic) Allergies adhesive Allergy (Verified 06/05/19 18:16) rips my skin off Current Medications Acetaminophen (Tylenol) 650 mg PO Q6H PRN PRN PRN Reason: PAIN Alprazolam (Xanax) 0.5 mg PO DAILY PRN PRN PRN Reason: ANXIETY Atorvastatin Calcium (Lipitor) 20 mg PO QHS CARMINA Buspirone HCl (Buspar) 10 mg PO BID [facility] Dextrose (D50w Syringe) 0 gm IV X1 PRN; Protocol PRN Reason: Hypoglycemia Duloxetine HCl (Cymbalta) 60 mg PO QHS [facility] Enoxaparin Sodium (Lovenox) 40 mg SC DAILY@0600 [facility] Gabapentin (Neurontin) 600 mg PO DAILY CARMINA Glucagon () 1 mg IM .X1 PRN PRN Reason: Hypoglycemia Sodium Chloride () 1,000 mls @ 75 mls/hr IV .[id number] CARMINA Last Admin: 06/05/19 18:30 Dose: 75 mls/hr Documented by: Piperacillin Sod/Tazobactam (Sod 3.375 gm/ Sodium Chloride) 50 mls @ 12.5 mls/hr IV Q8 CARMINA Vancomycin IV Pharmacy to Dose (1 ea/ Sodium Chloride) 500 mls @ 250 mls/hr IV X1 PRN; Protocol PRN Reason: Rx to Dose Vancomycin HCl 1,250 mg/ (Sodium Chloride) 275 mls @ 167 mls/hr IV X1 ONE Stop: 06/05/19 20:08 Last Admin: 06/05/19 18:53 Dose: 167 mls/hr Documented by: Vancomycin HCl 1,500 mg/ (Sodium Chloride) 530 mls @ 250 mls/hr IV Q24H [facility] Insulin Human Lispro (Humalog Kwikpen (Bkc)) 0 unit SC ACHS [facility]; Protocol Levothyroxine Sodium (Synthroid) 75 mcg PO DAILY@0600 [facility] Lisinopril (Zestril) 40 mg PO QHS [facility] Meclizine HCl (Antivert) 25 mg PO Q8H PRN PRN PRN Reason: DIZZINESS Metoprolol Succinate (Toprol Xl (Beta Laurel)) 50 mg PO QHS [facility] Ondansetron HCl (Zofran Odt) 4 mg PO Q6H PRN PRN PRN Reason: NAUSEA/VOMITING Oxycodone HCl (Oxyir) 10 mg PO Q4H PRN PRN PRN Reason: SEVERE PAIN (6-10/10) Last Admin: 06/05/19 18:55 Dose: 10 mg Documented by: Sodium Chloride () 10 - 40 ml IV UD PRN PRN Reason: SALINE FLUSH Home Medications: Ambulatory Orders Medication Instructions Recorded Duloxetine Hcl [Cymbalta] 60 mg PO QHS 03/15/15 Gabapentin [Neurontin] 600 mg PO QHS 03/15/15 Levothyroxine [Synthroid] 75 mcg PO MOWETHFRSA 03/15/15 Lisinopril [Zestril] 40 mg PO QHS 03/15/15 Metoprolol(XL)Succ [Toprol Xl 50 mg PO QHS 03/15/15 (Beta Laurel)] metFORMIN HCl [Glucophage] 1,000 mg PO BIDCM 03/15/15 busPIRone [Buspar] 10 mg PO BID 07/31/17 Meclizine HCl 25 mg PO Q8H PRN PRN #20 tab 05/21/19 ALPRAZolam [Xanax] 0.5 mg PO QHS PRN 06/05/19 Cholecalciferol (Vitamin D3) 2,000 unit PO DAILY 06/05/19 [Vitamin D3] Hydrocodone/Acetaminophen 1 tab PO Q8H PRN 06/05/19 [Hydrocodone-Acetamin 10-325 mg] Levothyroxine Sodium 150 mg PO SUTU 06/05/19 Multivitamin [Multivitamins] 1 ea PO DAILY 06/05/19 Simvastatin 20 mg PO QHS 06/05/19 Ubidecarenone [Coq-10] 200 mg PO DAILY 06/05/19 Ceftriaxone 2 gm IV Q24 #14 vial 06/08/19 Surgical History: cholecystectomy, - - spinal surgery Psychiatric History: No pertinent psych hx 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 HEENT: Denies: Head Aches, Sinus Congestion, Sinus Drainage. Cardiovascular: Denies: Chest Pain, Chest Pressure, Edema, Light Headedness, Palpitations. Respiratory: Denies: Cough, Shortness of Breath, Shortness of breath at rest, Sputum production. Gastrointestinal: Denies: Abdominal Pain, Diarrhea, Nausea, Vomiting. Genitourinary: Denies: Dysuria. Musculoskeletal: Denies: Joint Pain, Joint Tenderness. Skin: Reports: Wounds - wound right fourth digit. Denies: Rash. Neurological: Denies: Numbness, Tingling, Focal weakness. Psychiatric: Denies: Anxiety, Depression, Homicidal Ideations, Suicidal Ideations. Hematologic/ Lymphatic: Denies: Easy Bruising, Easy Bleeding Patient Problems: Active and Suspected Problems Nondisplaced fracture of middle phalanx of right ring finger, initial encounter for open fracture (Acute) Abscess of finger of right hand (Acute) Cellulitis of finger, right (Acute) Open bite of right ring finger without damage to nail (Acute) Dog bite (Acute) cellulitis of the right fourth digit (Acute) - Physical Exam General: Alert, Oriented x3. HEENT: PERRLA, EOMI. Neck: Supple, Nontender. No cervical adenopathy. Lungs: Clear to auscultation. Cardiovascular: Regular rate, regular rhythm. Abdomen: Soft, Nondistended. Extremities: Mild edema on dorsum right hand. Patient is right hand dominant. She has dog bite wounds on the dorsum and volar aspect of the right ring finger. Bites are located on the middle phalanx area. Surrounding redness. There is tenderness to flexion and extension of the finger. The fingers are mildly swollen, worse on the ring finger. No purulent drainage noted. Dorsum of right hand has mild to minimal edema and has tenderness out of proportion. Wrist is nontender. Fingers are warm with good capillary refill. Radial pulses are palpable. No axillary adenopathy. Neurological: Cranial nerves II-XII grossly intact Psych/Mental Status: Normal Affect, Appropriate, Alert and oriented to time, place, person, mood and affect Vital Signs Temp Pulse Resp BP Pulse Ox 98.3 F 79 18 118/71 95 06/05/19 18:32 06/05/19 18:32 06/05/19 18:32 06/05/19 18:32 06/05/19 18:32 Oxygen Delivery Method Room Air Weight: 175 lb 11.2 oz Body Mass Index (BMI) 34.3 Laboratory Tests Past 24 Hrs 06/05/19 06/05/19 13:15 13:15 WBC 11.0 RBC 4.29 Hgb 14.2 Hct 43.1 MCV 100.5 H MCH 33.1 H MCHC 32.9 RDW Std Deviation 48.9 H RDW Coeff of Ramana 13.2 Plt Count 217 MPV 10.3 Immature Gran % (Auto) 0.200 Neut % (Auto) 62.5 Lymph % (Auto) 26.7 Christian % (Auto) 7.8 Eos % (Auto) 2.3 Baso % (Auto) 0.5 Absolute Neuts (auto) 6.9 Absolute Lymphs (auto) 2.94 Nucleated RBC % 0 Sodium 136 Potassium 4.6 Chloride 103 Carbon Dioxide 28.0 Anion Gap 5 BUN 21 H Creatinine 1.11 H Estim Creat Clear Calc 40.65 Est GFR (MDRD) Af Amer 65 Est GFR (MDRD) Non-Af 54 L BUN/Creatinine Ratio 18.9 Glucose 112 H Calcium 9.8 Assessment/Plan All Active Problems Nondisplaced fracture of middle phalanx of right ring finger, initial encounter for open fracture (Acute) Compartment syndrome of right hand (Acute) Flexor tenosynovitis of finger (Acute) Abscess of finger of right hand (Acute) Cellulitis of finger, right (Acute) Open bite of right ring finger without damage to nail (Acute) Dog bite (Acute) cellulitis of the right fourth digit (Acute) Open fracture of middle phalanx of finger of right hand (Acute) 1. Dog bite infection right ring finger with cellulitis. 2. Early tenosynovitis. 3. Nondisplaced fracture base of middle phalanx right ring finger from dog bite. 4. Diabetes mellitus. 5. Former smoker. X-ray reviewed. It appears that the dog may have caught the edge of the bone with his teeth. Any bone chips seen at surgery will be removed. The rest of the middle phalanx bone appears stable. Patient is currently on Vancomycin and Zosyn. Unless there is dramatic improvement over night, she will need operative intervention with incision and drainage of her dog bite infection. She has evidence of early tenosynovitis. Am also concerned about her pain out of proportion on the dorsum of her right hand. There is minimal swelling there and no dog bite wounds present. At the time of surgery, I will make incisions on the dorsum to evaluate her interosseous muscles for possible compartment syndrome. Will send tissue to Pathology for analysis and to Microbiology for culture. A positive culture may necessitate antibiotic modification. Now the operative cultures may be negative since she is on IV antibiotics. In that scenario, based on the presence of pus near and around the tendons, I may decide on the need for IV antibiotics at discharge which would necessitate a PICC line. Will leave the wounds open and pack with a Silver dressing daily. Anticipate increased stiffness from the infection. Will set her up with OT at discharge to help with range of motion exercises, strengthening, and edema management. While hospitalized will check a HgbA1c. During the healing process after surgery, if there are any persistent wounds that need closure with a skin graft, her HgbA1c would need to be less than 8 before proceeding with an elective skin graft reconstruction. Anticipate increased metabolic demands from the infection. Will check a Prealbumin and encourage nutritional supplementation with protein to help the healing process. Surgery would be done under general anesthesia and tourniquet control. Patient was informed of the risks and complications of the procedure including alternatives to surgery. These were discussed with the patient personally. Patient voices understanding and wishes to proceed. Patient is aware that the wounds would be left open and Silver dressing changes started. She voices understanding. Some of the risks and complications that were discussed included but were not inclusive of failure to diagnose including symptom relief, pain, infection, numbness, stiffness, loss of digit, RSD (CRPS), need for further surgery, contracture, and wound healing problems. Will reassess early in the morning. Unless there is dramatic improvement over night, she will need operative intervention with incision and drainage of her dog bite infection. Code Visit Inpatient E&M: 17465 Init Hosp L2 - ICD-10 - W54.0xxA, S61.254A, L03.011, S62.654B, M65.9, E11.9, Z87.891
--- NOTE | 2019-06-05 19:52 | CT_ITS ---
STUDY: CT UPPER EXTREMITY WITHOUT CONTRAST RIGHT REASON FOR EXAM: Female, 58 years old. Dog bite fourth digit RADIATION DOSAGE (If Supplied By Facility): CTDIvol = ( 24.58 ) mGy, DLP = ( 480.71 ) mGycm. Individualized dose optimization techniques were used for this CT.? TECHNIQUE: Axial images of the hand were obtained from the distal radius and ulna through the distal phalanges. Sagittal coronal reformatted images were performed. COMPARISON: Right hand x-ray June 05, 2019 at 1:46 PM FINDINGS: Normal radiocarpal articulation. Normal distal radioulnar joint. The bones are osteopenic. Normal visualized carpal bones. There is mild degenerative change at the visualized scaphoid trapezium joint space. There is a small subchondral cyst within the trapezium. Normal carpometacarpal articulation of the thumb. Normal second through fifth carpometacarpal joints. The metacarpals appear mildly demineralized. Normal metacarpophalangeal joint of the thumb. Normal interphalangeal joint of the thumb. On one view there is a suggestion that there could be a subtle nondisplaced fracture at the head of the proximal phalanx of the first digit. Normal metacarpophalangeal joints of the second through fifth fingers. There is mild degenerative change of the distal interphalangeal joints from the first to the fifth digits. There is a nondisplaced subtle fracture at the base of the middle phalanx of the fourth digit with adjacent soft tissue edema and probable small dorsal hematoma. This is seen in image #23. There is no visualized foreign bodies. There is no visualized gas in the soft tissues. CT/Extremity Upper without Contra IMPRESSION: Nondisplaced fracture at the base of the middle phalanx of the fourth digit. Adjacent swelling hematoma. No visualized gas in the soft tissues. No visualized foreign body Findings suspicious for a nondisplaced fracture at the level of the head of the proximal phalanx of the first digit seen on image #54 series 602. Only seen on one view. Mild degenerative changes detailed above. Electronically Signed: Jeri Scott MD at 20:41 EDT Tel , Service support ,
[2019-06-05 22:00] VITALS: BP 105/78; PULSE 97; RESP 18; TEMP 37.2; O2SAT 97
[2019-06-05 22:10] VITALS: BP 105/78; PULSE 97
[2019-06-05] MEDS: Atorvastatin Calcium 20 MG Tablet PO (22:10)
[2019-06-05] MEDS: Metoprolol(XL)Succ 50 MG Tablet PO (22:10)
[2019-06-05] MEDS: Lisinopril 40 MG Tablet PO (22:10)
[2019-06-05] MEDS: DULoxetine Hcl 60 MG Capsule PO (22:11)
[2019-06-05] MEDS: busPIRone 5 MG Tablet 10 MG PO (22:11)
[2019-06-05] MEDS: HYDROmorphone 1 MG/ML Syringe IV (23:00)
[2019-06-05] MEDS: 0.9% NaCl Peripheral Flush Adult/Peds IV (23:00)
[2019-06-05 23:35] LABS: Bedside Glucose 182 mg/dL (70-110)
[2019-06-06] VITALS (13 sets, daily range): BP systolic 91–136; BP diastolic 53–76; PULSE 82–107; RESP 14–18; TEMP 36.2–37.3; O2SAT 94–98; BMI 34.3
[2019-06-06] MEDS: 0.9% NaCl IVPB Med Flush (250 mL) 15 ML IV ×2 (01:00→22:51)
[2019-06-06] MEDS: oxyCODONE 5 MG Tablet 10 MG PO ×3 (01:07→21:09)
[2019-06-06] MEDS: Acetaminophen 325 MG Tablet 650 MG PO (03:57)
[2019-06-06] MEDS: Levothyroxine 75 MCG Tablet PO (06:05)
[2019-06-06 06:41] LABS: Bedside Glucose 119 mg/dL (70-110)
--- NOTE | 2019-06-06 07:50 | PCM.PN.BLA ---
Progress Note Patient re-examined this morning. Swelling is persistent on both the dorsal aspect and volar aspect of the right ring finger. A little less than yesterday. The redness is a little less than yesterday. Still has pain with extension and pain with flexion. There is persistent pain extending into the distal palm by ring finger. The rest of the palm is soft and nontender. The wrists remain nontender. Dorsum of hand is a little less tender. With persistent symptomatology despite IV antibiotics with Vancomycin and Zosyn, recommend to the patient to proceed with incision and drainage of her dog bite infection. Will explore both the volar side and the dorsal side. Will leave the wounds open and begin dressing changes with Aquacel Silver. Patient was informed of the risks and complications of the procedure including alternatives to surgery. These were discussed with the patient personally. Patient voices understanding and wishes to proceed. Some of the risks and complications that were discussed included but were not inclusive of failure to diagnose including symptom relief, pain, infection, numbness, stiffness, loss of digit, RSD (CRPS), need for further surgery, contracture, and wound healing problems. Surgery will be done today under general anesthesia.
[2019-06-06 07:53] LABS: Absolute Neutrophil Count 7.1 X10^3/uL (2.0-7.7); Basophil# 0.04 X10^3/uL; Basophil% 0.3 % (0-1); Eosinophil# 0.31 X10^3/uL; Eosinophils% 2.7 % (0-5); Hematocrit 37.8 % (37-47); Hemoglobin 12.5 g/dL (12.0-15.0); Mean Corp Hgb Conc 33.1 g/dL (32-36); Mean Corpuscular Hgb 33.2 pg (27.0-32.0); Mean Corpuscular Volume 100.5 fL (81-99); Mean Platelet Vol. 10.2 fl (6.2-12.0); Monocyte# 1.21 X10^3/uL; Monocyte% 10.4 % (0-10); NRBC Flagged by Analyzer 0 % (0-5); Neutrophil # 7.12 X10^3/uL (2.7-7.7); Neutrophil % 61.3 % (47-70); Platelet Count 200 K/mm3 (150-450); RBC Distribution Width CV 13.1 % (11.6-14.6); RBC Distribution Width SD 48.3 fl (35.1-43.9); Red Blood Count 3.76 M/mm3 (4.2-5.4); White Blood Count 11.6 K/mm3 (4.4-11.0)
[2019-06-06 08:11] LABS: Anion Gap 7 (5-15); BUN 16 mg/dL (7-18); BUN/Creat Ratio 15.7 RATIO (10-20); Calcium,Total 8.6 mg/dL (8.5-10.1); Chloride 107 mmol/L (98-107); Creatinine, Serum 1.02 mg/dL (0.55-1.02); EST Glomerular Filtration Rate 60 mL/min (>60); Est Glom Filt Rate - Afr Amer 72 mL/min (>60); Estimated Creatinine Clearance 44.24 ml/min; Glucose 114 mg/dL (74-106); Potassium 4.8 mmol/L (3.5-5.1); Sodium Level 141 mmol/L (136-145)
[2019-06-06] MEDS: Gabapentin 600 MG Tablet PO (09:46)
[2019-06-06] MEDS: busPIRone 5 MG Tablet 10 MG PO ×2 (09:46→22:46)
[2019-06-06] MEDS: HYDROmorphone 1 MG/ML Syringe IV ×2 (10:50→13:47)
[2019-06-06] MEDS: 0.9% Normal Saline 1,000 ML 75 ML IV ×2 (11:05→22:45)
[2019-06-06 11:20] LABS: Bedside Glucose 207 mg/dL (70-110)
--- NOTE | 2019-06-06 12:39 | PCM.PROGNOTE ---
<Keven Olivarez - Last Filed: 06/06/19 12:39> Patient Problems: Active and Suspected Problems cellulitis of the right fourth digit (Acute) Open fracture of middle phalanx of finger of right hand (Acute) Subjective: Pain and swelling improved. No fever/chills. No N/V/D, no SOB. Agreeable to surgery. No drainage from wound. ROM still limited. - Physical Exam General: Alert, Oriented x3, Cooperative HEENT: Atraumatic, PERRLA, EOMI, Normocephalic Neck: Supple, No JVD, Negative Carotid Bruits Lungs: Clear to auscultation, Normal air movement Cardiovascular: Regular rate, No murmurs Abdomen: Bowel Sounds Present, Soft, Non Tender Extremities: No edema, Capillary Refill Less than 3 Seconds Skin: No rashes, No breakdown, - - erythema regressing, no tenderness at wrist now, less warm. No drainage. Musculoskeletal: No Tenderness to Palpation of Joints or Extremities, - - limited rom and significant swelling of the ROM hand/fingers anterior/posterior. PMS intact. Neurological: Cranial nerves II-XII grossly intact Psych/Mental Status: Normal Affect, Appropriate Vital Signs Temp Pulse Resp BP Pulse Ox 97.7 F L 82 16 120/76 95 06/06/19 08:25 06/06/19 08:25 06/06/19 08:25 06/06/19 10:45 06/06/19 08:25 Oxygen Delivery Method Room Air Weight: 175 lb 11.2 oz Body Mass Index (BMI) 34.3 Intake and Output for Last 24 Hours 06/04/19 06/05/19 06/06/19 23:59 23:59 23:59 Intake Total 2412.2 / 2412.2 Output Total 2300 / 2300 Balance 112.2 / 112.2 Laboratory Tests Past 24 Hrs 06/05/19 06/05/19 06/06/19 13:15 13:15 07:05 WBC 11.0 11.6 H RBC 4.29 3.76 L Hgb 14.2 12.5 Hct 43.1 37.8 MCV 100.5 H 100.5 H MCH 33.1 H 33.2 H MCHC 32.9 33.1 RDW Std Deviation 48.9 H 48.3 H RDW Coeff of Ramana 13.2 13.1 Plt Count 217 200 MPV 10.3 10.2 Immature Gran % (Auto) 0.200 0.300 Neut % (Auto) 62.5 61.3 Lymph % (Auto) 26.7 25.0 Rutherford % (Auto) 7.8 10.4 H Eos % (Auto) 2.3 2.7 Baso % (Auto) 0.5 0.3 Absolute Neuts (auto) 6.9 7.1 Absolute Lymphs (auto) 2.94 2.90 Nucleated RBC % 0 0 Sodium 136 Potassium 4.6 Chloride 103 Carbon Dioxide 28.0 Anion Gap 5 BUN 21 H Creatinine 1.11 H Estim Creat Clear Calc 40.65 Est GFR (MDRD) Af Amer 65 Est GFR (MDRD) Non-Af 54 L BUN/Creatinine Ratio 18.9 Glucose 112 H Calcium 9.8 06/06/19 07:05 WBC RBC Hgb Hct MCV MCH MCHC RDW Std Deviation RDW Coeff of Ramana Plt Count MPV Immature Gran % (Auto) Neut % (Auto) Lymph % (Auto) Rutherford % (Auto) Eos % (Auto) Baso % (Auto) Absolute Neuts (auto) Absolute Lymphs (auto) Nucleated RBC % Sodium 141 Potassium 4.8 Chloride 107 Carbon Dioxide 27.0 Anion Gap 7 BUN 16 Creatinine 1.02 Estim Creat Clear Calc 44.24 Est GFR (MDRD) Af Amer 72 Est GFR (MDRD) Non-Af 60 BUN/Creatinine Ratio 15.7 Glucose 114 H Calcium 8.6 POC Glucose 06/06/19 06/06/19 06/05/19 11:00 06:34 22:14 POC Glucose 207 H 119 H 182 H Medical Necessity - Tobacco Use Smoking Status: Former smoker Tobacco Use: Cigarettes Assessment/Plan All Active Problems cellulitis of the right fourth digit (Acute) Open fracture of middle phalanx of finger of right hand (Acute) 1. Acute cellulitis right fourth digit, extending into the hand and wrist, probable tenosynovitis - secondary to dog bite. Failed Augmentin as outpatient. Continue Vancomycin and Zosyn. Dr. Vera to take to the OR today. Increased leukocytosis. Afebrile. 2. Acute right middle phalanx fracture-complicating above. 3. Type 2 diabetes with morbid obesity-hold metformin, provide sliding scale insulin. Dietary consult 4. Former smoker-denies underlying COPD or asthma, she did smoke for 30 years. 5. History of osteoarthritis of the spine with prior spinal surgery. She is in pain management for this. 6. Anxiety and depression-continue home medications. 7. Hypothyroidism-continue Synthroid DVT prophylaxis: Lovenox This patient was seen by Keven Olivarez PA-C under the supervision of Doctor Nii. <NiiLaine E - Last Filed: 06/06/19 14:13> - Physical Exam Vital Signs Temp Pulse Resp BP Pulse Ox 97.2 F L 90 18 118/76 98 06/06/19 13:15 06/06/19 13:15 06/06/19 13:15 06/06/19 13:15 06/06/19 13:15 Oxygen Delivery Method Room Air Weight: 175 lb 7.807 oz Body Mass Index (BMI) 34.3 Intake and Output for Last 24 Hours 06/04/19 06/05/19 06/06/19 23:59 23:59 23:59 Intake Total 2412.2 / 2412.2 Output Total 2300 / 2300 Balance 112.2 / 112.2 Laboratory Tests Past 24 Hrs 06/06/19 06/06/19 07:05 07:05 WBC 11.6 H RBC 3.76 L Hgb 12.5 Hct 37.8 MCV 100.5 H MCH 33.2 H MCHC 33.1 RDW Std Deviation 48.3 H RDW Coeff of Ramana 13.1 Plt Count 200 MPV 10.2 Immature Gran % (Auto) 0.300 Neut % (Auto) 61.3 Lymph % (Auto) 25.0 Rutherford % (Auto) 10.4 H Eos % (Auto) 2.7 Baso % (Auto) 0.3 Absolute Neuts (auto) 7.1 Absolute Lymphs (auto) 2.90 Nucleated RBC % 0 Sodium 141 Potassium 4.8 Chloride 107 Carbon Dioxide 27.0 Anion Gap 7 BUN 16 Creatinine 1.02 Estim Creat Clear Calc 44.24 Est GFR (MDRD) Af Amer 72 Est GFR (MDRD) Non-Af 60 BUN/Creatinine Ratio 15.7 Glucose 114 H Calcium 8.6 POC Glucose 06/06/19 06/06/19 06/05/19 11:00 06:34 22:14 POC Glucose 207 H 119 H 182 H Assessment/Plan Hospitalist note: I am seeing this patient in conjunction with Keven Olivarez. I independently seen and examined the patient. Progress note above, laboratory data and imaging studies reviewed and I concur with the above treatment plan. Patient admitted because of worsening right fourth digit swelling, pain and erythema after she had a dog bite 4 days ago, was on Augmentin without improvement. She still having right fourth finger pain and swelling with limited range of movement. She has been afebrile, minimal leukocytosis, other vital signs are stable. X-ray of the right hand revealed nondisplaced fracture at the base of the middle phalanx of the fourth digit with overlying soft tissue swelling. - Physical Exam General: Alert, Oriented x3, Cooperative, No apparent distress. HEENT: Atraumatic, PERRLA, EOMI. Neck: Supple, No JVD, Negative Carotid Bruits, Trachea Midline, Thyroid Normal. Lungs: Clear to auscultation, Normal air movement, No rhonchi, No wheeze, No rales. Cardiovascular: Regular rate, Regular Rhythm, Normal S1, Normal S2, PMI Normal. Abdomen: Bowel Sounds Present, Soft, Non Tender, Non-Distended, No Hepato-splenomegaly. Extremities: No clubbing, No cyanosis, No edema. Right hand: Swelling and erythema of the right fourth digit with dry scratch bailey, no drainage Skin: No rashes, No breakdown. Neurological: Neuro grossly intact Vital Signs are stable. Assessment and plan: #1 acute right fourth digit cellulitis: Due to dog bite, has been on Augmentin for 2 years without improvement. She is on IV vancomycin and Zosyn. Her vital signs are stable, afebrile. Blood cultures pending. Plastic surgery consulted, plan for surgery today. #2 nondisplaced fracture at the base of the middle phalanx of the right fourth digit: On IV Dilaudid and OxyIR PRN for pain. Plan to evaluate the fracture during the surgery above. #3 other chronic medical problems: Stable, continue current medications as above. This note was generated with ROVOP dictation software. It may contain incorrect words, spelling, and punctuation that were not noted in checking the note before signing. Code Visit Inpatient E&M: 68086 Subs Hosp L2
--- NOTE | 2019-06-06 15:30 | SOF_PTH ---
PATIENT: MONICA CARLOS LOC: [facility] U#:[id number] AGE/SX: 58/F ROOM: WA311 RE06/06/[address]: Dr. Vanessa Mcmahon MD : 1960 BED: 1 DIS: 06/09/2019 SPEC #: [id number] RECD: 06/07/19 08:17 STATUS: ADAL REIsa #: [id number] PRECIOUS: 06/06/19 15:[address]: Fernando Vera DEPT: SURGICAL PATHOLOGY RECD BY: Denton Muller ENTERED: 06/07/19 10:59 SP TYPE: SOFT TISS OTHR DR: MD Dr. Travis Garza MD Mary Ciesa, CRATE MAKER-C Tissues: Finger, NOS Procedures: PAS Fungus (control) Special Stain Group I Surgery Specimen Level III AFB Stain (control) HEADER OPERATION: Incision, drainage abscess, right ring finger PRE-OP DIAGNOSIS: Dog bite infection right ring finger; abscess dorsum right ring finger; dorsal interosseous compartment syndrome; extensor tendon injury, zone 2 TISSUE SUBMITTED: Soft tissue dog bite infection, right ring finger MICROSCOPIC DIAGNOSIS Soft tissue dog bite infection, right ring finger: Pieces of skin and soft tissue with focal ulceration, acute inflammation and abscess formation. Special stains for acid fast bacilli and fungi are negative for organisms; matched controls are appropriate. ROEL:haile 06/08/19 MICROSCOPIC DESCRIPTION Slides are reviewed. GROSS DESCRIPTION Received in fixative is one container labeled with the patient's name and designated soft tissue dog bite infection right ring finger. The specimen consists of five variable sized pieces of skin with underlying tissue measuring in aggregate 2 x 2 x 0.5 cm. The larger pieces are serially sectioned. The entire specimen is submitted in one cassette. / ROEL:haile 06/07/19 TC: 2 CPT: 31440, 34814 x2
[2019-06-06 15:36] LABS: Bedside Glucose 65 mg/dL (70-110)
[2019-06-06] MEDS: Dextrose 50%-Water 25 GM/50 ML DISP.SYRIN IV (15:44)
[2019-06-06 16:11] LABS: Bedside Glucose 91 mg/dL (70-110)
--- NOTE | 2019-06-06 16:19 | NURSING ---
report called to AC
--- NOTE | 2019-06-06 16:19 | NURSING ---
report called to [facility] on [facility]
--- NOTE | 2019-06-06 17:08 | PCA ---
pt off floor
--- NOTE | 2019-06-06 19:12 | PCA ---
pt off floor
--- NOTE | 2019-06-06 20:25 | OP.PCM_ITS ---
Report of Operation Date of Procedure: 06/06/19 Pre-Operative Diagnosis: 1. Dog bite infection right ring finger with vannessa lulitis. 2. Early tenosynovitis. 3. Nondisplaced fracture base of middle phalanx right ring finger from dog bite. 4. Diabetes mellitus. Post-Operative Diagnosis: 1. Necrotizing dog bite infection abscess dorsum right ring finger and volar right ring finger with cellulitis. 2. Flexor tenosynovitis right ring finger. 3. Traumatic extensor tendon injury with partial tendon loss from dog bite right ring finger (zone 2). 4. Compartment syndrome dorsal interosseous muscles right hand. 5. Nondisplaced fracture base of middle phalanx right ring finger from dog bite. 6. Diabetes mellitus. Surgery/Procedure Performed:: 1. Surgical preparation dorsum right ring finger with incision and drainage and excisional debridement necrotizing dog bite infection abscess (2.25 cm2). 2. Surgical preparation volar right ring finger with incision and drainage and excisional debridement necrotizing dog bite infection abscess (2.7 cm2). 3. Incision and drainage tendon sheath for flexor tenosynovitis right ring finger. 4. Excisional debridement traumatic extensor tendon injury with partial tendon loss from dog bite (zone 2). 5. Fasciotomies dorsal interosseus muscles x4 right hand for compartment syndrome. Description of Surgical Findings:: The patient is a 58 year old F with past medical history of type 2 diabetes and former smoker was admitted today for worsening dog bite right ring finger. o presented to the emergency room with complaints of right hand swelling. The patient was bitten by her dog, (10 year old Felicia Haas) accidentally two days prior to admission on 06/03/19. The dog's teeth penetrated from one side of her right ring finger through the skin on the other side, with complete passage through her finger. Initially she was given Augmentin. She followed up with her PCP today who sent her to the ED for admission. The patient was developing increasing redness, increasing swelling, and increasing pain. X-ray was done of her right hand which showed nondisplaced fracture at the base of the middle phalanx of the fourth digit with overlying soft tissue swelling. Her WBC was 11.0. She denied any fever. She was admitted and started on Vancomycin and Zosyn. I was asked to evaluate this patient for surgical options for treatment. She had a preop CT scan which showed nondisplaced fracture at the base of the middle phalanx of the fourth digit. Adjacent swelling hematoma. No visualized gas in the soft tissues. No visualized foreign body. Findings suspicious for a nondisplaced fracture at the level of the head of the proximal phalanx of the first digit. Mild degenerative changes detailed above. Patient was informed of the risks and complications of the procedure including alternatives to surgery. These were discussed with the patient personally. Patient voices understanding and wishes to proceed. Some of the risks and complications that were discussed included but were not inclusive of failure to diagnose including symptom relief, pain, infection, numbness, stiffness, loss of digit, RSD (CRPS), need for further surgery, contracture, and wound healing problems. Total tourniquet time - 51 minutes. Size of wound dorsum right hand, radial - 3 x 0.7 cm. Size of wound dorsum right hand, ulnar - 3 x 0.7 cm. Size of wound dorsum right ring finger, distal - 1.5 x 1.5 cm. Length of wounds dorsum right ring finger, proximal - 1.5 cm and 2 cm. Size of wounds volar right ring finger, middle - 2 x 1 cm and 1 x 0.7 cm. Length of wounds volar right ring finger, proximal - 1.5 cm and 2 cm. Length of wound volar right ring finger, distal - 1 cm. lead manufacturing engineer: None Type of Anesthesia:: General Specimen's removed: Dog bite infection sof tissue right ring finger to Pathology and Microbiology. Drains: None. Estimated Blood Loss (mL): 10 ml. Description of Procedure: Patient was taken to OR in supine position and was placed under general anesthesia. The right hand was prepped and draped in the usual fashion. SCD's were placed for DVT prophylaxis. Perioperative antibiotics were given intravenously. Using xylocaine with epinephrine, a digital metacarpal block was infiltrated in the distal palm to help with postop pain relief. After waiting 5 minutes for the anesthetic to take effect, the right hand was elevated and compressed with my hands and a gauze and the tourniquet was elevated to 250 mmHg continuous suction. I did not want to use the Esmarch bandage because of concerns of spreading the infection. Under loupe magnification, I proceeded with incision and drainage of the infection first on the dorsal side. Copious pus was seen along with fat necrosis. The pus extended proximally. So I extended the incision proximally in a zig zag fashion. Further fat necrosis was seen. The dog bite wounds were excised and debrided as well as the areas of fat necrosis. The size of the dog bite wound, distally, on the dorsal aspect measured 1.5 x 1.5 cm. The length of the dog bite wounds, proximally, on the dorsal aspect measured 1.5 cm and 2 cm. The wounds were copiously irrigated with saline. The underlying extensor tendon appeared inflamed. There was a tra umatic extensor tendon injury with partial tendon loss in zone 2 involving the radial aspect of the tendon. Further exploration onto the middle phalanx showed a chip fracture defect. I couldn't locate the chip fractured bone. I pressed on the middle phalanx. The bone was stable. It appears as though the dog's teeth just grazed the edge of the bone. I loosely approximated the zig and the zag of the incisions with 5-0 Nylon simple interrupted sutures and vertical mattress interrupted sutures to make the wounds smaller for the Silver dressing changes postop. I then made longitudinal incisions onto the dorsum of the right hand down through the subcutaneous tissue until the tendons were seen. I made two incisions, one at the level of the ring finger and the other at the level of the index finger. A lot of fat necrosis was seen. It was excised and debrided. Looking past the tendons which appeared intact, the underlying dorsal interosseous muscles were bulging and darker in color and appeared compromised. I dissected free all four of the dorsal interosseous muscles and proceeded with fasciotomies. The muscles bulged out and immediately looked pinker and more viable. I then turned the hand over and addressed the volar side. Pus was coming from the dog bite wounds. The two dog bite wounds could not be combined so were excised and debrided separately. A lot of fat necrosis was present. The pus extended to the flexor tendon sheath. It did not appear to come from within the tendon sheath. I extended the incision from the dog bite wounds both proximally and distally in a zig zag fashion to open up the entire flexor tendon sheath. There was also pus in the vicinity of the radial digital nerve. Since the bite was in this area, I dissected out the radial digital nerve to look for injury. The nerve was intact. I then copiously irrigated out the flexor tendon sheath with saline and an IV catheter until clear drainage was seen. There was a lot of inflammatory drainage that was seen. The tendons appeared inflamed as well. I then loosely approximated the zig and the zag of the incisions with 5-0 Nylon simple interrupted sutures and vertical mattress interrupted sutures to make the wounds smaller for the Silver dressing changes postop. The size of the dog bite wounds, on the mid portion, on the volar aspect measured 2 x 1 cm and 1 x 0.7 cm. The length of the dog bite wounds, proximally, on the volar aspect measured 1.5 cm and 2 cm. The length of the dog bite wound, distally, on the volar aspect measured 1.5 cm and 2 cm. The tourniquet was released after 51 minutes. Hemostasis was obtained with electrocautery and compression and elevation. The wounds were packed with Aquacel Silver dressing changes followed by 2x2 gauze in the web spaces followed by Kerlix gauze. A volar plaster splint was administered followed by a compression JOSE wrap. Patient tolerated the procedure well and was sent to PACU in satisfactory condition. Patient will be sent upstairs for continued postop care. Will evaluate for the need for IV antibiotics for home. Will continue Silver dressing changes tomorrow as well. Will keep her right hand elevated during the initial postop period. Will continue Vancomycin and Zosyn for now. Encourage nutritional supplementation with protein to help the healing process. Grafts/Implants Used: None. - Complications None. - Admit VTE Documentation VTE Present on Admission: No VTE Mechan Device Prophylaxis: SCD's VTE Pharm Prophylaxis ordered?: No Code Visit Surgery Charges CPT - 82937 ICD-10 - W54.0xxA, S61.254A, L02.511, M79.89, E11.9, S62.654B, Z87.891 49237 W54.0xxA, L02.511, S61.254A, M79.89, E11.9, S62.654B, Z87.891 80037 W54.0xxA, L02.511, S61.254A, M79.89, E11.9, S62.654B, Z87.891 93052 W54.0xxA, M65.9, L02.511, S61.254A, M79.89, E11.9, S62.654B, Z87.891 [id number] W54.0xxA, S61.254A, S66.394A, L02.511, E11.9, S62.654B, Z87.891 17526 W54.0xxA, T79.A11A, L02.511, M79.89, S61.254A, E11.9, S62.654B, Z87.891 [id number] W54.0xxA, T79.A11A, L02.511, M79.89, S61.254A, E11.9, S62.654B, Z87.891 48847 W54.0xxA, T79.A11A, L02.511, M79.89, S61.254A, E11.9, S62.654B, Z87.891 [id number] W54.0xxA, T79.A11A, L02.511, M79.89, S61.254A, E11.9, S62.654B, Z87.891
[2019-06-06 20:40] LABS: Bedside Glucose 117 mg/dL (70-110)
[2019-06-06 21:56] LABS: Bedside Glucose 207 mg/dL (70-110)
[2019-06-06] MEDS: Insulin Lispro 100 UNIT/ML INSULN.PEN SC (22:08)
[2019-06-06] MEDS: Glucerna Shake 120 ML LIQUID PO (22:11)
[2019-06-06] MEDS: Atorvastatin Calcium 20 MG Tablet PO (22:46)
[2019-06-06] MEDS: DULoxetine Hcl 60 MG Capsule PO (22:46)
[2019-06-06] MEDS: Lisinopril 40 MG Tablet PO (22:47)
[2019-06-06] MEDS: Metoprolol(XL)Succ 50 MG Tablet PO (22:47)
[2019-06-07 01:33] VITALS: BP 110/72; PULSE 98; RESP 16; TEMP 36.6; O2SAT 96
[2019-06-07 06:10] LABS: Absolute Lymphocyte Count 0.87 X10^3/uL (0.83-4.51); Basophil# 0.02 X10^3/uL; Basophil% 0.2 % (0-1); Hematocrit 36.8 % (37-47); Hemoglobin 12.1 g/dL (12.0-15.0); Lymphocyte # 0.87 X10^3/ul (4.0); Lymphocyte % 9.5 % (19-41); Mean Corp Hgb Conc 32.9 g/dL (32-36); Mean Corpuscular Volume 100.3 fL (81-99); Mean Platelet Vol. 9.9 fl (6.2-12.0); Monocyte# 0.25 X10^3/uL; Monocyte% 2.7 % (0-10); NRBC Flagged by Analyzer 0 % (0-5); Neutrophil # 7.98 X10^3/uL (2.7-7.7); Neutrophil % 87.3 % (47-70); Platelet Count 198 K/mm3 (150-450); RBC Distribution Width CV 12.8 % (11.6-14.6); RBC Distribution Width SD 47.3 fl (35.1-43.9); Red Blood Count 3.67 M/mm3 (4.2-5.4); White Blood Count 9.2 K/mm3 (4.4-11.0)
[2019-06-07] MEDS: Insulin Lispro 100 UNIT/ML INSULN.PEN SC ×4 (06:35→21:45)
[2019-06-07] MEDS: Levothyroxine 75 MCG Tablet PO (06:36)
[2019-06-07] MEDS: Enoxaparin 40 MG/0.4 ML Syringe SC (06:36)
[2019-06-07 06:37] LABS: Anion Gap 8 (5-15); BUN 18 mg/dL (7-18); BUN/Creat Ratio 15.7 RATIO (10-20); Calcium,Total 8.3 mg/dL (8.5-10.1); Chloride 108 mmol/L (98-107); Creatinine, Serum 1.15 mg/dL (0.55-1.02); EST Glomerular Filtration Rate 52 mL/min (>60); Est Glom Filt Rate - Afr Amer 63 mL/min (>60); Estimated Creatinine Clearance 39.24 ml/min; Glucose 248 mg/dL (74-106); Potassium 5.2 mmol/L (3.5-5.1); Sodium Level 138 mmol/L (136-145)
[2019-06-07 06:43] VITALS: BP 100/57; PULSE 75; RESP 16; TEMP 36.6; O2SAT 95
[2019-06-07 06:45] LABS: Bedside Glucose 241 mg/dL (70-110)
[2019-06-07 07:39] VITALS: BP 100/64; PULSE 82; RESP 16; TEMP 36.6; O2SAT 94
[2019-06-07] MEDS: HYDROmorphone 1 MG/ML Syringe IV ×2 (08:57→13:57)
[2019-06-07] MEDS: 0.9% NaCl Peripheral Flush Adult/Peds IV ×2 (08:57→13:58)
[2019-06-07] MEDS: Glucerna Shake 120 ML LIQUID PO ×4 (08:59→21:43)
[2019-06-07] MEDS: Gabapentin 600 MG Tablet PO (08:59)
[2019-06-07] MEDS: busPIRone 5 MG Tablet 10 MG PO ×2 (08:59→21:45)
[2019-06-07] MEDS: oxyCODONE 5 MG Tablet 10 MG PO ×3 (10:54→22:49)
[2019-06-07] MEDS: Acetaminophen 325 MG Tablet 650 MG PO ×2 (10:54→18:37)
[2019-06-07 11:06] LABS: Bedside Glucose 323 mg/dL (70-110)
--- NOTE | 2019-06-07 11:15 | CASEMGMT ---
ANIA BLANCO Face to Face with patient for initial transition planning/care coordination assessment. ANIA CM introduced self and role at [facility]. Patient lying in bed, alert and oriented. Patient willing to participate in assessment and is able to answer all questions appropriately. Care providers, pharmacy, and demographics verified. Patient wishes to discharge home, denies need for home health at this time, but may reconsider if IV ATBs needed at discharge. Patient states she has no further needs or concerns at this time. CM to follow for discharge planning needs that may arise. PCP: Aparna Doran FLIGHT CONTROLS ENGINEER Specialists: None Preferred Pharmacy: [facility] Insurance: Health plan [facility] Prescription Benefit: yes Living Will/HPOA: yes, but would like them yuni, ROBERT aware LNOK: son and daughter Living Arrangements: Patient lives alone in ranch style home with 2 steps to enter the home. Patient is independent. States herself or family/friends can help with dressing changes. Transportation: self, family/friends DME/HHC: Patient denies any DME or HHC. ANIA BLANCO will monitor need for IV ATBs at discharge. Disposition Plan: Patient to discharge home with family support and follow-up plans in place. Shazia ARZOLA, RN, CM
[2019-06-07] MEDS: 0.9% Normal Saline 1,000 ML 75 ML IV (11:49)
--- NOTE | 2019-06-07 12:04 | PN_ITS ---
<Keven Olivarez - Last Filed: 06/07/19 12:04> Patient Problems: Active and Suspected Problems cellulitis of the right fourth digit (Acute) Open fracture of middle phalanx of finger of right hand (Acute) Subjective: Pain well controlled with current prn regimen. No fever/chills. No SOB/cough. No numbness/tingling. PMS intact. - Physical Exam General: Alert, Oriented x3, Cooperative HEENT: Atraumatic, PERRLA, EOMI, Normocephalic Neck: Supple, No JVD, Negative Carotid Bruits Lungs: Clear to auscultation, Normal air movement Cardiovascular: Regular rate, No murmurs Abdomen: Bowel Sounds Present, Soft, Non Tender Extremities: No edema, Capillary Refill Less than 3 Seconds Skin: No rashes, No breakdown Musculoskeletal: No Tenderness to Palpation of Joints or Extremities, - - right distal arm, wrist, hand splinted. pms intact Neurological: Cranial nerves II-XII grossly intact Psych/Mental Status: Normal Affect, Appropriate, Alert and oriented to time, place, person, mood and affect Vital Signs Temp Pulse Resp BP Pulse Ox 97.9 F 82 16 100/64 94 06/07/19 07:39 06/07/19 07:39 06/07/19 07:39 06/07/19 07:39 06/07/19 07:39 Oxygen Flow Rate (L/min) 3 Oxygen Delivery Method Room Air Weight: 175 lb 7.807 oz Body Mass Index (BMI) 34.3 Finger Stick Blood Glucose 117 Intake and Output for Last 24 Hours 06/05/19 06/06/19 06/07/19 23:59 23:59 23:59 Intake Total 3412.2 / 3532.2 1220 / 1220 Output Total 2300 / 2300 Balance 1112.2 / 1232.2 1220 / 1220 Microbiology Past 72 Hours 06/06/19 20:15 Gram Stain - Final Tissue - Finger Laboratory Tests Past 24 Hrs 06/07/19 06/07/19 05:34 05:34 WBC 9.2 RBC 3.67 L Hgb 12.1 Hct 36.8 L MCV 100.3 H MCH 33.0 H MCHC 32.9 RDW Std Deviation 47.3 H RDW Coeff of Ramana 12.8 Plt Count 198 MPV 9.9 Immature Gran % (Auto) 0.300 Neut % (Auto) 87.3 H Lymph % (Auto) 9.5 L [place] % (Auto) 2.7 Eos % (Auto) 0.0 Baso % (Auto) 0.2 Absolute Neuts (auto) 8.0 H Absolute Lymphs (auto) 0.87 Nucleated RBC % 0 Sodium 138 Potassium 5.2 H Chloride 108 H Carbon Dioxide 22.0 Anion Gap 8 BUN 18 Creatinine 1.15 H Estim Creat Clear Calc 39.24 Est GFR (MDRD) Af Amer 63 Est GFR (MDRD) Non-Af 52 L BUN/Creatinine Ratio 15.7 Glucose 248 H Calcium 8.3 L Prealbumin 22.0 POC Glucose 06/07/19 06/07/19 06/06/19 10:52 06:34 21:51 POC Glucose 323 H 241 H 207 H 06/06/19 06/06/19 06/06/19 20:30 16:01 15:22 POC Glucose 117 H 91 65 L Medical Necessity - Tobacco Use Smoking Status: Former smoker Tobacco Use: Cigarettes Assessment/Plan All Active Problems cellulitis of the right fourth digit (Acute) Open fracture of middle phalanx of finger of right hand (Acute) 1. Acute cellulitis right fourth digit, extending into the hand and wrist, probable tenosynovitis - secondary to dog bite. Failed Augmentin as outpatient. Continue Vancomycin and Zosyn. Dr. Vera following: I&D POD#1. Leukocytosis resolved, afebrile. 2. Acute right middle phalanx fracture-complicating above. Nondisplaced. Immobilized in splint. 3. Type 2 diabetes with morbid obesity-hold metformin, provide sliding scale insulin. Dietary consult 4. Former smoker-denies underlying COPD or asthma, she did smoke for 30 years. 5. History of osteoarthritis of the spine with prior spinal surgery. She is in pain management for this. 6. Anxiety and depression-continue home medications. 7. Hypothyroidism-continue Synthroid DVT prophylaxis: Lovenox This patient was seen by Keven Olivarez PA-C under the supervision of Doctor Nii. <Laine Bales - Last Filed: 06/07/19 12:30> - Physical Exam Vital Signs Temp Pulse Resp BP Pulse Ox 97.9 F 82 16 100/64 94 06/07/19 07:39 06/07/19 07:39 06/07/19 07:39 06/07/19 07:39 06/07/19 07:39 Oxygen Flow Rate (L/min) 3 Oxygen Delivery Method Room Air Weight: 175 lb 7.807 oz Body Mass Index (BMI) 34.3 Finger Stick Blood Glucose 117 Intake and Output for Last 24 Hours 06/05/19 06/06/19 06/07/19 23:59 23:59 23:59 Intake Total 3412.2 / 3532.2 1220 / 1220 Output Total 2300 / 2300 Balance 1112.2 / 1232.2 1220 / 1220 Microbiology Past 72 Hours 06/06/19 20:15 Gram Stain - Final Tissue - Finger Laboratory Tests Past 24 Hrs 06/07/19 06/07/19 05:34 05:34 WBC 9.2 RBC 3.67 L Hgb 12.1 Hct 36.8 L MCV 100.3 H MCH 33.0 H MCHC 32.9 RDW Std Deviation 47.3 H RDW Coeff of Ramana 12.8 Plt Count 198 MPV 9.9 Immature Gran % (Auto) 0.300 Neut % (Auto) 87.3 H Lymph % (Auto) 9.5 L [place] % (Auto) 2.7 Eos % (Auto) 0.0 Baso % (Auto) 0.2 Absolute Neuts (auto) 8.0 H Absolute Lymphs (auto) 0.87 Nucleated RBC % 0 Sodium 138 Potassium 5.2 H Chloride 108 H Carbon Dioxide 22.0 Anion Gap 8 BUN 18 Creatinine 1.15 H Estim Creat Clear Calc 39.24 Est GFR (MDRD) Af Amer 63 Est GFR (MDRD) Non-Af 52 L BUN/Creatinine Ratio 15.7 Glucose 248 H Calcium 8.3 L Prealbumin 22.0 POC Glucose 06/07/19 06/07/19 06/06/19 10:52 06:34 21:51 POC Glucose 323 H 241 H 207 H 06/06/19 06/06/19 06/06/19 20:30 16:01 15:22 POC Glucose 117 H 91 65 L Assessment/Plan Hospitalist note: I am seeing this patient in conjunction with Keven Olivarez. I independently seen and examined the patient. Progress note above, laboratory data and imaging studies reviewed and I concur with the above treatment plan. Right finger pain is well controlled. Denies fever or chills. Her vital signs are stable. - Physical Exam General: Alert, Oriented x3, Cooperative, No apparent distress. HEENT: Atraumatic, PERRLA, EOMI. Neck: Supple, No JVD, Negative Carotid Bruits, Trachea Midline, Thyroid Normal. Lungs: Clear to auscultation, Normal air movement, No rhonchi, No wheeze, No rales. Cardiovascular: Regular rate, Regular Rhythm, Normal S1, Normal S2, PMI Normal. Abdomen: Bowel Sounds Present, Soft, Non Tender, Non-Distended, No Hepato- splenomegaly. Extremities: No clubbing, No cyanosis, No edema. Skin: No rashes, No breakdown. Neurological: Neuro grossly intact Vital Signs are stable. Assessment and plan: #1 acute right fourth digit cellulitis/tenosynovitis/compartment syndrome: Due to dog bite, has been on Augmentin for 2 years without improvement. Status post incision and drainage with excisional debridement, fasciotomy. Remains on IV vancomycin and Zosyn. Her vital signs are stable, afebrile. Blood cultures pending. Dr. Vera is managing. #2 nondisplaced fracture at the base of the middle phalanx of the right fourth digit: On IV Dilaudid and OxyIR PRN for pain. Status post above surgery. Plan for immobilization and splint. #3 other chronic medical problems: Stable, continue current medications as above. This note was generated with [employer] dictation software. It may contain incorrect words, spelling, and punctuation that were not noted in checking the note before signing. Code Visit Inpatient E&M: 00798 Subs Hosp L2
--- NOTE | 2019-06-07 14:48 | NURSING ---
wound photo: right hand
--- NOTE | 2019-06-07 14:48 | NURSING ---
wound photo: right hand
[2019-06-07 15:18] VITALS: BP 105/61; PULSE 82; RESP 16; TEMP 36.7; O2SAT 95
[2019-06-07 15:46] LABS: Bedside Glucose 178 mg/dL (70-110)
--- NOTE | 2019-06-07 17:19 | PCM.PN.SRG ---
Patient Problems: Active and Suspected Problems Nondisplaced fracture of middle phalanx of right ring finger, initial encounter for open fracture (Acute) Abscess of finger of right hand (Acute) Cellulitis of finger, right (Acute) Open bite of right ring finger without damage to nail (Acute) Dog bite (Acute) cellulitis of the right fourth digit (Acute) Subjective: Postop #1 Tolerated the Silver dressing change reasonably well. Still needed IV analgesia. - Physical Exam General: Alert, Oriented x3 HEENT: PERRLA, EOMI Oral: Moist Mucosa Neck: Supple Abdomen: Soft, Non-Distended Extremities: Edema - mild edema right hand., Peripheral Pulses Normal Skin: Ulcer/ Wound - wounds right ring finger (dorsal and volar) and dorsum right hand are stable. Some bleeding seen easily controlled with compression. No vascular compromise noted on the skin. Ring finger is viable. Swelling is less. Less redness seen. Tolerated the Silver dressing changes reasonably well. Needed IV analgesia. Neurological: Cranial nerves II-XII grossly intact Psych/Mental Status: Normal Affect, Appropriate Vital Signs Temp Pulse Resp BP Pulse Ox 98.0 F 82 16 105/61 95 06/07/19 15:18 06/07/19 15:18 06/07/19 15:18 06/07/19 15:18 06/07/19 15:18 Oxygen Flow Rate (L/min) 3 Oxygen Delivery Method Room Air Weight: 175 lb 7.807 oz Body Mass Index (BMI) 34.3 Finger Stick Blood Glucose 117 Intake and Output for Last 24 Hours 06/05/19 06/06/19 06/07/19 23:59 23:59 23:59 Intake Total 3412.2 / 3532.2 1220 / 1220 Output Total 2300 / 2300 Balance 1112.2 / 1232.2 1220 / 1220 Microbiology Past 72 Hours 06/05/19 13:25 Blood Culture - Preliminary Blood Culture (Wb) - Left Forearm No growth in 48 hours. 06/05/19 13:15 Blood Culture - Preliminary Blood Culture (Wb) - Anticubital Left No growth in 48 hours. 06/06/19 20:15 Gram Stain - Final Tissue - Finger Laboratory Tests Past 24 Hrs 06/07/19 06/07/19 05:34 05:34 WBC 9.2 RBC 3.67 L Hgb 12.1 Hct 36.8 L MCV 100.3 H MCH 33.0 H MCHC 32.9 RDW Std Deviation 47.3 H RDW Coeff of Ramana 12.8 Plt Count 198 MPV 9.9 Immature Gran % (Auto) 0.300 Neut % (Auto) 87.3 H Lymph % (Auto) 9.5 L [place] % (Auto) 2.7 Eos % (Auto) 0.0 Baso % (Auto) 0.2 Absolute Neuts (auto) 8.0 H Absolute Lymphs (auto) 0.87 Nucleated RBC % 0 Sodium 138 Potassium 5.2 H Chloride 108 H Carbon Dioxide 22.0 Anion Gap 8 BUN 18 Creatinine 1.15 H Estim Creat Clear Calc 39.24 Est GFR (MDRD) Af Amer 63 Est GFR (MDRD) Non-Af 52 L BUN/Creatinine Ratio 15.7 Glucose 248 H Calcium 8.3 L Prealbumin 22.0 POC Glucose 06/07/19 06/07/19 06/07/19 15:33 10:52 06:34 POC Glucose 178 H 323 H 241 H 06/06/19 06/06/19 21:51 20:30 POC Glucose 207 H 117 H Medical Necessity - Tobacco Use Smoking Status: Former smoker Tobacco Use: Cigarettes Assessment/Plan All Active Problems Nondisplaced fracture of middle phalanx of right ring finger, initial encounter for open fracture (Acute) Compartment syndrome of right hand (Acute) Flexor tenosynovitis of finger (Acute) Abscess of finger of right hand (Acute) Cellulitis of finger, right (Acute) Open bite of right ring finger without damage to nail (Acute) Dog bite (Acute) cellulitis of the right fourth digit (Acute) Open fracture of middle phalanx of finger of right hand (Acute) 1. Necrotizing dog bite infection abscess dorsum right ring finger and volar right ring finger with cellulitis. 2. Flexor tenosynovitis right ring finger. 3. Traumatic extensor tendon injury with partial tendon loss from dog bite right ring finger (zone 2). 4. Compartment syndrome dorsal interosseous muscles right hand. 5. Nondisplaced fracture base of middle phalanx right ring finger from dog bite. 6. Diabetes mellitus. 7. s/p surgical preparation dorsum right ring finger with incision and drainage and excisional debridement necrotizing dog bite infection abscess (2.25 cm2) and surgical preparation volar right ring finger with incision and drainage and excisional debridement necrotizing dog bite infection abscess (2.7 cm2) and incision and drainage tendon sheath for flexor tenosynovitis right ring finger and excisional debridement traumatic extensor tendon injury with tendon loss from dog bite (zone 2) and fasciotomies dorsal interosseus muscles x4 right hand for compartment syndrome. Wounds are clean. Mild bleeding seen easily controlled with compression. No clinical evidence of further infection. Wounds redressed with Silver dressing. She tolerated reasonably well. Needed IV analgesia. Continue Vancomycin and Zosyn. Operative cultures are negative thus far. Prealbumin was 22.0. Encourage nutritional supplementation with protein to help the healing process. With the degree of pus that was seen near and around the tendons, will need a PICC line and IV antibiotics after discharge. If the cultures are negative, would start with 2 weeks of IV antibiotics. If the cultures are positive, would need 6 weeks of IV antibiotics. After discharge, will need OT for range of motion exercises, strengthening, and edema management.
[2019-06-07 19:14] LABS: Vancomycin, Trough Level 7.9 ug/mL (5.0-15.0)
[2019-06-07 21:32] VITALS: BP 95/58; PULSE 80; RESP 16; TEMP 36.8; O2SAT 95
[2019-06-07] MEDS: Atorvastatin Calcium 20 MG Tablet PO (21:45)
[2019-06-07] MEDS: DULoxetine Hcl 60 MG Capsule PO (21:45)
[2019-06-07 21:47] VITALS: BP 95/58; PULSE 80
--- NOTE | 2019-06-07 21:59 | PCM.RX.CS ---
Consult Type of Consult: Follow-up Suspected Infection: Skin/Soft tissue Labs: Sodium 138 mmol/L (136-145) 06/07/19 05:34 Potassium 5.2 mmol/L (3.5-5.1) H 06/07/19 05:34 Chloride 108 mmol/L (98-107) H 06/07/19 05:34 Carbon Dioxide 22.0 mmol/L (21.0-32.0) 06/07/19 05:34 8 (5-15) 06/07/19 05:34 BUN 18 mg/dL (7-18) 06/07/19 05:34 1.15 mg/dL (0.55-1.02) H 06/07/19 05:34 Est GFR (MDRD) Af Amer 63 mL/min (>60) 06/07/19 05:34 Est GFR (MDRD) Non-Af 52 mL/min (>60) L 06/07/19 05:34 15.7 RATIO (10-20) 06/07/19 05:34 Glucose 248 mg/dL (74-106) H 06/07/19 05:34 Vancomycin Trough 7.9 ug/mL (5.0-15.0) 06/07/19 18:29 Microbiology: Microbiology 06/05/19 13:25 Blood Culture (Wb) - Left Forearm Blood Culture - Preliminary No growth in 48 hours. 06/05/19 13:15 Blood Culture (Wb) - Anticubital Left Blood Culture - Preliminary No growth in 48 hours. 06/06/19 20:15 Tissue - Finger Gram Stain - Final Pharmacy Plan for Drug Dosing: Pharmacy Service will continue to monitor and adjust dosing as required. Medications Vancomycin HCl 2,000 mg/ (Sodium Chloride) 540 mls @ 250 mls/hr IV Q24H CARMINA TROUGH 7.9 INCREASE TO 2000MG Q24H NEXT TROUGH 06/10 @ 1530 Follow-Up Labs: Trough Vancomycin Labs to be done on [date and time ordered]: 06/10 @ 1530
[2019-06-07 22:06] LABS: Bedside Glucose 150 mg/dL (70-110)
[2019-06-08] MEDS: 0.9% Normal Saline 1,000 ML 75 ML IV ×2 (02:51→18:05)
[2019-06-08 02:53] VITALS: BP 105/66; PULSE 72; RESP 16; TEMP 36.3; O2SAT 97
[2019-06-08] MEDS: oxyCODONE 5 MG Tablet 10 MG PO ×4 (03:05→21:29)
[2019-06-08] MEDS: Enoxaparin 40 MG/0.4 ML Syringe SC (06:06)
[2019-06-08] MEDS: Levothyroxine 75 MCG Tablet PO (06:06)
[2019-06-08 06:45] LABS: Bedside Glucose 108 mg/dL (70-110)
[2019-06-08 06:46] LABS: Anion Gap 6 (5-15); BUN 23 mg/dL (7-18); BUN/Creat Ratio 20.4 RATIO (10-20); Calcium,Total 8.4 mg/dL (8.5-10.1); Chloride 114 mmol/L (98-107); Creatinine, Serum 1.13 mg/dL (0.55-1.02); EST Glomerular Filtration Rate 53 mL/min (>60); Est Glom Filt Rate - Afr Amer 64 mL/min (>60); Estimated Creatinine Clearance 39.93 ml/min; Glucose 116 mg/dL (74-106); Potassium 4.9 mmol/L (3.5-5.1); Sodium Level 143 mmol/L (136-145)
[2019-06-08 09:07] VITALS: BP 94/52; PULSE 94; RESP 16; TEMP 36.7; O2SAT 97
[2019-06-08] MEDS: Gabapentin 600 MG Tablet PO (09:25)
[2019-06-08] MEDS: busPIRone 5 MG Tablet 10 MG PO ×2 (09:25→21:26)
[2019-06-08] MEDS: Acetaminophen 325 MG Tablet 650 MG PO ×3 (09:25→23:09)
[2019-06-08] MEDS: Glucerna Shake 120 ML LIQUID PO ×3 (09:26→18:11)
--- NOTE | 2019-06-08 10:05 | PCM.PN.SRG ---
Subjective: Postop #2 Patient has wound pain with the Silver dressing change. Still needs IV analgesia. - Physical Exam General: Alert, Oriented x3 HEENT: PERRLA, EOMI Oral: Moist Mucosa Neck: Supple Abdomen: Soft, Non-Distended Extremities: Edema - mild edeman right hand., Peripheral Pulses Normal Skin: Ulcer/ Wound - wounds right ring finger (dorsal and volar) and dorsum right hand are stable. Minimal bleeding seen easily controlled with compression. No vascular compromise noted on the skin. Ring finger is viable. Swelling is less. Redness resolved. Tolerated the Silver dressing changes reasonably well. Needed IV analgesia. Neurological: Cranial nerves II-XII grossly intact Psych/Mental Status: Normal Affect, Appropriate Vital Signs Temp Pulse Resp BP Pulse Ox 98.0 F 94 16 94/52 L 97 06/08/19 09:07 06/08/19 09:07 06/08/19 09:07 06/08/19 09:07 06/08/19 09:07 Oxygen Flow Rate (L/min) 3 Oxygen Delivery Method Room Air Weight: 175 lb 7.807 oz Body Mass Index (BMI) 34.3 Finger Stick Blood Glucose 117 Intake and Output for Last 24 Hours 06/06/19 06/07/19 06/08/19 23:59 23:59 23:59 Intake Total 3412.2 / 3532.2 1220 / 2020 1600 / 1600 Output Total 2300 / 2300 1500 / 1500 Balance 1112.2 / 1232.2 1220 / 1820 100 / 100 Microbiology Past 72 Hours 06/05/19 13:25 Blood Culture - Preliminary Blood Culture (Wb) - Left Forearm No growth in 48 hours. 06/05/19 13:15 Blood Culture - Preliminary Blood Culture (Wb) - Anticubital Left No growth in 48 hours. 06/06/19 20:15 Gram Stain - Final Tissue - Finger Laboratory Tests Past 24 Hrs 06/07/19 06/08/19 18:29 05:58 Sodium 143 Potassium 4.9 Chloride 114 H Carbon Dioxide 23.0 Anion Gap 6 BUN 23 H Creatinine 1.13 H Estim Creat Clear Calc 39.93 Est GFR (MDRD) Af Amer 64 Est GFR (MDRD) Non-Af 53 L BUN/Creatinine Ratio 20.4 H Glucose 116 H Calcium 8.4 L Vancomycin Trough 7.9 POC Glucose 08/11/2606/07/19 06/07/19 06:40 21:41 15:33 POC Glucose 108 150 H 178 H 06/07/19 10:52 POC Glucose 323 H Medical Necessity - Tobacco Use Smoking Status: Former smoker Tobacco Use: Cigarettes Assessment/Plan All Active Problems Nondisplaced fracture of middle phalanx of right ring finger, initial encounter for open fracture (Acute) Compartment syndrome of right hand (Acute) Flexor tenosynovitis of finger (Acute) Abscess of finger of right hand (Acute) Cellulitis of finger, right (Acute) Open bite of right ring finger without damage to nail (Acute) Dog bite (Acute) cellulitis of the right fourth digit (Acute) Open fracture of middle phalanx of finger of right hand (Acute) 1. Necrotizing dog bite infection abscess dorsum right ring finger and volar right ring finger with cellulitis. 2. Flexor tenosynovitis right ring finger. 3. Traumatic extensor tendon injury with partial tendon loss from dog bite right ring finger (zone 2). 4. Compartment syndrome dorsal interosseous muscles right hand. 5. Nondisplaced fracture base of middle phalanx right ring finger from dog bite. 6. Diabetes mellitus. 7. s/p surgical preparation dorsum right ring finger with incision and drainage and excisional debridement necrotizing dog bite infection abscess (2.25 cm2) and surgical preparation volar right ring finger with incision and drainage and excisional debridement necrotizing dog bite infection abscess (2.7 cm2) and incision and drainage tendon sheath for flexor tenosynovitis right ring finger and excisional debridement traumatic extensor tendon injury with tendon loss from dog bite (zone 2) and fasciotomies dorsal interosseus muscles x4 right hand for compartment syndrome. Wounds are clean. Minimal beeding seen easily controlled with compression. No clinical evidence of further infection. Wounds redressed with Silver dressing. She tolerated reasonably well. Needed IV analgesia. Continue Vancomycin. Will stop the Zosyn. Operative cultures are negative thus far. Will start Ceftriaxone which can be continued post-discharge. Prealbumin was 22.0. Encourage nutritional supplementation with protein to help the healing process. With the degree of pus that was seen near and around the tendons, will need a PICC line and IV antibiotics after discharge. If the cultures are negative, would start with 2 weeks of IV antibiotics. If the cultures are positive, would need 6 weeks of IV antibiotics. After discharge, will need OT for range of motion exercises, strengthening, and edema management.
--- NOTE | 2019-06-08 10:43 | NURSING ---
notified access specialist of picc line need
--- NOTE | 2019-06-08 11:24 | CASEMGMT ---
As per CM, pt would like to complete LW/POA forms. SW assisted pt in completing forms, SW gave pt original and copies, and a copy was placed on the chart. ABELINO Casas
[2019-06-08 11:30] LABS: Bedside Glucose 110 mg/dL (70-110)
--- NOTE | 2019-06-08 11:45 | CASEMGMT ---
ANIA BLANCO updated by Dr. Vera that patient will need IV ATBs at discharge. ANIA CM in to discuss discharge options with patient regarding IV ATBs at home with [facility] or outpatient clinic. Patient states that she would prefer to go home with C and home IV ATBs but is concerned with cost. ANIA BLANCO updated the patient that referral would be made to [facility] for home infusion and [facility] for HHC, depending on cost after referral made then we can discuss going home with [facility] or going to infusion clinic. Patient is agreeable to have referral sent to [facility] for pricing. ANIA BLANCO sent referrals to [facility] and [facility] for home infusion setup. ANIA BLANCO will await call back from [facility] and [facility] to continue setup. CM will continue to follow this patient and plan for a safe discharge.
--- NOTE | 2019-06-08 12:18 | PN_ITS ---
Patient Problems: Active and Suspected Problems Compartment syndrome of right hand (Acute) involving dorsal interosseous muscles Flexor tenosynovitis of finger (Acute) Abscess of finger of right hand (Acute) Cellulitis of finger, right (Acute) Open bite of right ring finger without damage to nail (Acute) Dog bite (Acute) cellulitis of the right fourth digit (Acute) Open fracture of middle phalanx of finger of right hand (Acute) Subjective: Patient seen and examined. Still complains of pain in the right head at sites of surgery but states pain is much better controlled. She denied any fever, chills, palpitations or dizziness, chest pain, diarrhea vomiting. Review of systems otherwise negative. Labs and vitals reviewed. She is to get PICC line today for long-term antibiotics per plastic surgery. Vitals/I&O's: Vital Signs Temp Pulse Resp BP Pulse Ox 98.0 F 94 16 94/52 L 97 06/08/19 09:07 06/08/19 09:07 06/08/19 09:07 06/08/19 09:07 06/08/19 09:07 Oxygen Flow Rate (L/min) 3 Oxygen Delivery Method Room Air Weight: 175 lb 7.807 oz Body Mass Index (BMI) 34.3 Finger Stick Blood Glucose 117 Intake and Output for Last 24 Hours 06/06/19 06/07/19 06/08/19 23:59 23:59 23:59 Intake Total 3412.2 / 3532.2 1220 / 2020 1600 / 1600 Output Total 2300 / 2300 1500 / 1500 Balance 1112.2 / 1232.2 1220 / 1820 100 / 100 General: Alert, Oriented x3, Cooperative, No apparent distress HEENT: Atraumatic, PERRLA, EOMI, Normocephalic Oral: Moist Mucosa Neck: Supple, No JVD, Negative Carotid Bruits, Negative Hepatojugular Reflux, No Nodes Lungs: Clear to auscultation, Normal air movement, No rhonchi, No wheeze, No rales Cardiovascular: Regular rate, Regular Rhythm, Normal S1, Normal S2, No murmurs Abdomen: Bowel Sounds Present, Soft, Non Tender, Non-Distended, No Hepato- splenomegaly Extremities: - - right hand bandaged Skin: No rashes, No breakdown Musculoskeletal: No Tenderness to Palpation of Joints or Extremities Lymphatic: No Cervical, Supraclavicular, or Inguinal Adenopathy Neurological: Cranial nerves II-XII grossly intact, Neuro grossly intact, Motor Exam 5/5 strength throughout Psych/Mental Status: Normal Affect, Appropriate, Alert and oriented to time, place, person, mood and affect Microbiology Past 72 Hours 06/05/19 13:25 Blood Culture (Wb) - Left Forearm Blood Culture - Preliminary No growth in 48 hours. 06/05/19 13:15 Blood Culture (Wb) - Anticubital Left Blood Culture - Preliminary No growth in 48 hours. 06/06/19 20:15 Tissue - Finger Gram Stain - Final Laboratory Results 06/07/19 15:33: POC Glucose 178 H 06/07/19 18:29: Vancomycin Trough 7.9 06/07/19 21:41: POC Glucose 150 H 06/08/19 05:58: Sodium 143, Potassium 4.9, Chloride 114 H, Carbon Dioxide 23.0, Anion Gap 6, BUN 23 H, Creatinine 1.13 H, Estim Creat Clear Calc 39.93, Est GFR (MDRD) Af Amer 64, Est GFR (MDRD) Non-Af 53 L, BUN/Creatinine Ratio 20.4 H, Glucose 116 H, Calcium 8.4 L 06/08/19 06:40: POC Glucose 108 06/08/19 11:24: POC Glucose 110 Diagnostic Data Hand X-Ray 06/05/19 13:48 IMPRESSION: Nondisplaced fracture at the base of the middle phalanx of the fourth digit with overlying soft tissue swelling. Electronically Signed: Syd Caballero, at 14:08 EDT , Service support , Upper Extremity CT 06/05/19 19:52 IMPRESSION: Nondisplaced fracture at the base of the middle phalanx of the fourth digit. Adjacent swelling hematoma. No visualized gas in the soft tissues. No visualized foreign body Findings suspicious for a nondisplaced fracture at the level of the head of the proximal phalanx of the first digit seen on image #54 series 602. Only seen on one view. Mild degenerative changes detailed above. Electronically Signed: Jeri Scott MD at 20:41 EDT Tel , Service support , Current Medications Acetaminophen (Tylenol) 650 mg PO Q6H PRN PRN PRN Reason: PAIN Last Admin: 06/08/19 09:25 Dose: 650 mg Documented by: Alprazolam (Xanax) 0.5 mg PO DAILY PRN PRN PRN Reason: ANXIETY Atorvastatin Calcium (Lipitor) 20 mg PO QHS [facility] Last Admin: 06/07/19 21:45 Dose: 20 mg Documented by: Buspirone HCl (Buspar) 10 mg PO BID [facility] Last Admin: 06/08/19 09:25 Dose: 10 mg Documented by: Dextrose (D50w Syringe) 0 gm IV X1 PRN; Protocol PRN Reason: Hypoglycemia Last Admin: 06/06/19 15:44 Dose: 25 gm Documented by: Duloxetine HCl (Cymbalta) 60 mg PO QHS [facility] Last Admin: 06/07/19 21:45 Dose: 60 mg Documented by: Enoxaparin Sodium (Lovenox) 40 mg SC DAILY@0600 [facility] Last Admin: 06/08/19 06:06 Dose: 40 mg Documented by: Gabapentin (Neurontin) 600 mg PO DAILY [facility] Last Admin: 06/08/19 09:25 Dose: 600 mg Documented by: Glucagon () 1 mg IM .X1 PRN PRN Reason: Hypoglycemia Hydromorphone HCl (Dilaudid Inj) 1 mg IV Q3H PRN PRN PRN Reason: SEVERE PAIN (6-10/10) Last Admin: 06/07/19 13:57 Dose: 1 mg Documented by: Sodium Chloride () 1,000 mls @ 75 mls/hr IV .[id number] [facility] Last Admin: 06/08/19 02:51 Dose: 75 mls/hr Documented by: Piperacillin Sod/Tazobactam (Sod 3.375 gm/ Sodium Chloride) 50 mls @ 12.5 mls/hr IV Q8 [facility] Last Admin: 06/08/19 06:06 Dose: 12.5 mls/hr Documented by: Vancomycin IV Pharmacy to Dose (1 ea/ Sodium Chloride) 500 mls @ 250 mls/hr IV X1 PRN; Protocol PRN Reason: Rx to Dose Sodium Chloride () 250 mls @ 15 mls/hr IV .[id number] PRN PRN Reason: SALINE FLUSH Last Admin: 06/06/19 22:51 Dose: 15 mls/hr Documented by: Vancomycin HCl 2,000 mg/ (Sodium Chloride) 540 mls @ 250 mls/hr IV Q24H [facility] Ceftriaxone Sodium 2 gm/ (Sodium Chloride) 50 mls @ 100 mls/hr IV Q24 [facility] Insulin Human Lispro (Humalog Kwikpen (Bkc)) 0 unit SC ACHS [facility]; Protocol Last Admin: 06/08/19 11:43 Dose: Not Given Documented by: Levothyroxine Sodium (Synthroid) 75 mcg PO DAILY@0600 [facility] Last Admin: 06/08/19 06:06 Dose: 75 mcg Documented by: Lisinopril (Zestril) 40 mg PO QHS [facility] Last Admin: 06/07/19 21:47 Dose: Not Given Documented by: Meclizine HCl (Antivert) 25 mg PO Q8H PRN PRN PRN Reason: DIZZINESS Metoprolol Succinate (Toprol Xl (Beta Laurel)) 50 mg PO QHS [facility] Last Admin: 06/07/19 21:47 Dose: Not Given Documented by: Nutritional Formula (Lactose Free) (Glucerna Shake) 120 ml PO 4X/DAY [facility] Last Admin: 06/08/19 09:26 Dose: 120 ml Documented by: Ondansetron HCl (Zofran Odt) 4 mg PO Q6H PRN PRN PRN Reason: NAUSEA/VOMITING Oxycodone HCl (Oxyir) 10 mg PO Q4H PRN PRN PRN Reason: SEVERE PAIN (6-10/10) Last Admin: 06/08/19 09:25 Dose: 10 mg Documented by: Sodium Chloride () 10 - 40 ml IV UD PRN PRN Reason: SALINE FLUSH Last Admin: 06/07/19 13:58 Dose: 10 ml Documented by: Medical Necessity - Tobacco Use Smoking Status: Former smoker Tobacco Use: Cigarettes Assessment/Plan All Active Problems Compartment syndrome of right hand (Acute) Flexor tenosynovitis of finger (Acute) Abscess of finger of right hand (Acute) Cellulitis of finger, right (Acute) Open bite of right ring finger without damage to nail (Acute) Dog bite (Acute) cellulitis of the right fourth digit (Acute) Open fracture of middle phalanx of finger of right hand (Acute) 1. Cellulitis of the right fourth digit with partial tendon injury and tenosynovitis * due to dog bite. also had compartment syndrome of right hand. * failed augmentin as outpatient basis * s/p I &D * plastic surgery on board * wound cultures pending; blood cultures showed no growth after 48 hours * continue IV vancomycin and IV zosyn; will dc ceftriaxone * 2. Acute right middle phalanx fracture * stable. In splint. * will monitor * 3. type 2 diabetes mellitus * blood sugars fairly well controlled. * A1C from 2017-6.3. Will check A1C * metformin on hold. on ISS. Accuchecks ACHS * 4. History of osteoarthritis s/p spinal surgery: stable. to follow up with pain management upon discharge. 5.Anxiety and depression: on xanax and cymbalta 6. Hypothyroidism: on synthroid 7. Hypertension: on metoprolol and lisinopril DVT prophylaxis: lovenox Code Visit Inpatient E&M: 30314 Subs Hosp L2
[2019-06-08 13:22] LABS: Hemoglobin A1c 6.3 % (4.2-6.3)
--- NOTE | 2019-06-08 14:30 | CASEMGMT ---
ANIA BLANCO received call back from [facility] regarding cost for ATB at home. Patient has $4000 deductible that only $987 has been met. ANIA BLANCO updated the patient and would now like to go to outpatient infusion clinic. ANIA BLANCO requested patient have family member that will be assisting with dressing changes come to hospital to learn wound care. Patient states that she will have family come to learn dressing changes. ANIA BLANCO sent referral to outpatient infusion clinic and they are able to accept the patient. Patient will need to come to [facility] central registration on Wednesday at 1000 and ED registration on Wednesday at 1000. Patient will be seen on Wednesday in the infusion clinic at 0930. ANIA BLANCO updated the patient and Dr. Vera regarding discharge plan to home with IV ATBs at the outpatient infusion clinic.
[2019-06-08 14:36] VITALS: BP 95/55; PULSE 95; RESP 16; TEMP 36.8; O2SAT 95
[2019-06-08 16:26] LABS: Bedside Glucose 125 mg/dL (70-110)
[2019-06-08] MEDS: 0.9% NaCl IVPB Med Flush (250 mL) 15 ML IV (16:33)
[2019-06-08 21:20] VITALS: BP 98/53; PULSE 84; RESP 16; TEMP 36.6; O2SAT 97
[2019-06-08] MEDS: DULoxetine Hcl 60 MG Capsule PO (21:26)
[2019-06-08] MEDS: Atorvastatin Calcium 20 MG Tablet PO (21:26)
[2019-06-08 21:40] LABS: Bedside Glucose 135 mg/dL (70-110)
[2019-06-08 22:46] VITALS: BP 98/53; PULSE 84
[2019-06-08] MEDS: Fluconazole 100 MG Tablet 200 MG PO (23:08)
[2019-06-09 05:09] LABS: Hematocrit 33.7 % (37-47); Hemoglobin 10.8 g/dL (12.0-15.0); Mean Corpuscular Hgb 33.3 pg (27.0-32.0); Mean Platelet Vol. 9.8 fl (6.2-12.0); Platelet Count 192 K/mm3 (150-450); RBC Distribution Width SD 49.6 fl (35.1-43.9); Red Blood Count 3.24 M/mm3 (4.2-5.4); White Blood Count 9.6 K/mm3 (4.4-11.0)
[2019-06-09 05:23] LABS: Anion Gap 7 (5-15); BUN 28 mg/dL (7-18); BUN/Creat Ratio 24.8 RATIO (10-20); Calcium,Total 8.5 mg/dL (8.5-10.1); Chloride 113 mmol/L (98-107); Creatinine, Serum 1.13 mg/dL (0.55-1.02); EST Glomerular Filtration Rate 53 mL/min (>60); Est Glom Filt Rate - Afr Amer 64 mL/min (>60); Estimated Creatinine Clearance 39.93 ml/min; Glucose 106 mg/dL (74-106); Potassium 4.9 mmol/L (3.5-5.1); Sodium Level 146 mmol/L (136-145)
[2019-06-09 05:56] VITALS: BP 115/70; PULSE 79; RESP 16; TEMP 36.6; O2SAT 97
[2019-06-09] MEDS: Enoxaparin 40 MG/0.4 ML Syringe SC (06:02)
[2019-06-09] MEDS: Levothyroxine 75 MCG Tablet PO (06:02)
[2019-06-09] MEDS: 0.9% NaCl Peripheral Flush Adult/Peds IV (06:02)
[2019-06-09] MEDS: oxyCODONE 5 MG Tablet 10 MG PO ×2 (06:04→10:10)
[2019-06-09 06:20] LABS: Bedside Glucose 111 mg/dL (70-110)
[2019-06-09] MEDS: 0.9% Normal Saline 1,000 ML 75 ML IV (06:49)
[2019-06-09] MEDS: busPIRone 5 MG Tablet 10 MG PO (10:12)
[2019-06-09] MEDS: Fluconazole 100 MG Tablet 200 MG PO (10:13)
[2019-06-09] MEDS: Gabapentin 600 MG Tablet PO (10:13)
[2019-06-09] MEDS: Glucerna Shake 120 ML LIQUID PO (10:14)
[2019-06-09 10:15] VITALS: BP 111/69; PULSE 96; RESP 18; TEMP 36.7; O2SAT 97
--- NOTE | 2019-06-09 11:42 | PCM.DC ---
- Discharge Diagnoses Current Active Problems: Current Active and Chronic Problems Obesity (Chronic) Former smoker (Chronic) You will use the following diet at home:: Cardiac Your food should be the consistency of: Regular Your liquids should be the consistency of: Regular/Thin Discharge Activity: Return to Normal Activity Call your doctor if you observe: Fever of 101 or Higher, Coldness, Increased Pain Instructions: Cellulitis Allergies/Adverse Reactions: Allergies adhesive Allergy (Verified 06/05/19 18:16) rips my skin off Medications to take at Discharge Duloxetine Hcl [Cymbalta] 60 mg PO QHS 03/15/15 Gabapentin [Neurontin] 600 mg PO QHS 03/15/15 Levothyroxine [Synthroid] 75 mcg PO MOWETHFRSA 03/15/15 Lisinopril [Zestril] 40 mg PO QHS 03/15/15 Metoprolol(XL)Succ [Toprol Xl (Beta Laurel)] 50 mg PO QHS 03/15/15 metFORMIN HCl [Glucophage] 1,000 mg PO BIDCM 03/15/15 busPIRone [Buspar] 10 mg PO BID 07/31/17 Meclizine HCl 25 mg PO Q8H PRN PRN #20 tab 05/21/19 ALPRAZolam [Xanax] 0.5 mg PO QHS PRN 06/05/19 Cholecalciferol (Vitamin D3) [Vitamin D3] 2,000 unit PO DAILY 06/05/19 Hydrocodone/Acetaminophen [Hydrocodone-Acetamin 10-325 mg] 1 tab PO Q8H PRN 06/05/19 Levothyroxine Sodium 150 mg PO SUTU 06/05/19 Multivitamin [Multivitamins] 1 ea PO DAILY 06/05/19 Simvastatin 20 mg PO QHS 06/05/19 Ubidecarenone [Coq-10] 200 mg PO DAILY 06/05/19 Ceftriaxone 2 gm IV Q24 #14 vial 06/08/19 The following prescriptions were given: Ceftriaxone 2 gm IV Q24 #14 vial Prescription Printed Primary Care Physician: Aparna Doran NP-C [Primary Care Provider] - Please follow up with your Primary Care Physician in: one week Test Results: Test results from this visit will be discussed in further detail at your follow-up appointment, if applicable. Please Follow Up With: [facility] Central Registration for IV antibiotic When: Wednesday Please Follow Up With: [facility] ED Registration for IV antibiotic When: Wednesday Please Follow Up With: [facility] Outpatient Infusion Clinic When: Wednesday Please Follow Up With: Fernando Vera MD When: one week Proposed Discharge Date: 06/09/19
--- NOTE | 2019-06-09 11:44 | PCM.DC.SUM ---
Discharge Date and Diagnosis Date of Admission: 06/05/19 Date of Discharge: 06/09/19 - Primary Discharge Diagnosis cellulitis of the right fourth digit tenosynovitis partial tendon injury of right fourth digit acute right middle phalanx fracture - Secondary Discharge Diagnosis Chronic Problems Depression (Chronic) Hyperlipidemia (Chronic) Hypertension (Chronic) Hypothyroidism (Chronic) Type 2 diabetes mellitus (Chronic) Obesity (Chronic) Former smoker (Chronic) Hospital Course and Treatment Imaging Results: Diagnostic Data Hand X-Ray 06/05/19 13:48 IMPRESSION: Nondisplaced fracture at the base of the middle phalanx of the fourth digit with overlying soft tissue swelling. Electronically Signed: Syd Caballero, at 14:08 EDT , Service support , Upper Extremity CT 06/05/19 19:52 IMPRESSION: Nondisplaced fracture at the base of the middle phalanx of the fourth digit. Adjacent swelling hematoma. No visualized gas in the soft tissues. No visualized foreign body Findings suspicious for a nondisplaced fracture at the level of the head of the proximal phalanx of the first digit seen on image #54 series 602. Only seen on one view. Mild degenerative changes detailed above. Electronically Signed: Jeri Scott MD at 20:41 EDT Tel , Service support , Consultations 06/07/19 08:34 Consult: Onc/Wound/sharepoint solutions developer Routine Comment: Reason for Consult:: right 4th digit compartment syndrome post op plastic surgery Operations: - - incision and drainage, excisional debridement Procedures: None Summary of Care Provided: The patient is a 58 year old F with past medical history as listed. She was admitted through the ED on 06/05/2019 with complaint of right hand swelling. She was bitten by her dog 2 days prior to admission. She had been seen in the ED in the interim and was sent home with p.o. Augmentin. However had became more swollen with decreased range of movement and associated redness and severe pain. X-ray done showed nondisplaced right middle phalanx fracture. She therefore came into the ED and was admitted and managed for cellulitis of the right hand due to dog bit, with failed outpatient therapy. She was started on IV vancomycin and Zosyn and plastic surgery- Dr. Vera was consulted. She had an cysts and and drainage and excisional debridement of the right hand on 05/20/2019 by plastic surgery. Patient tolerated procedure well. She had a PICC line placed on 06/08/2019. Blood culture showed no growth after 48 hours and wound cultures were also negative. Per plastic surgery, on account of amount of pus that was drained during the I&D, it was prudent to discharge patient on IV antibiotics. Antibiotics were narrowed down to ceftriaxone. Patient was discharged home on 06/09/2019 with a PICC line in place. She is to receive daily IV ceftriaxone at the outpatient infusion center. She is to follow-up with plastic surgery and plastic surgery to determine length of antibiotic administration based on how patient response in the outpatient setting. Patient seen and examined prior to discharge. She had no complaints. Pain was well controlled. Review of systems is otherwise negative. Labs and vitals reviewed. Home medications reviewed and reconciled. On examination Vitals: Vital Signs Height 5 ft Weight: 175 lb 7.807 oz Weight in Pounds 175.5 lbs Pulse Ox 97 Temperature 98.1 F Pulse Rate 96 Respiratory Rate 18 Blood Pressure [2nd BP] 120/76 Blood Pressure 111/69 Blood Pressure Position Semi-Fowlers General: Alert, Oriented x3, Cooperative, No apparent distress HEENT: Atraumatic, PERRLA, EOMI, Normocephalic Oral: Moist Mucosa Neck: Supple, No JVD, Negative Carotid Bruits, Negative Hepatojugular Reflux, No Nodes Lungs: Clear to auscultation, Normal air movement, No rhonchi, No wheeze, No rales Cardiovascular: Regular rate, Regular Rhythm, Normal S1, Normal S2, No murmurs Abdomen: Bowel Sounds Present, Soft, Non Tender, Non-Distended, No Hepato-splenomegaly Extremities: - - right hand bandaged Skin: No rashes, No breakdown Musculoskeletal: No Tenderness to Palpation of Joints or Extremities Lymphatic: No Cervical, Supraclavicular, or Inguinal Adenopathy Neurological: Cranial nerves II-XII grossly intact, Neuro grossly intact, Motor Exam 5/5 strength throughout Psych/Mental Status: Normal Affect, Appropriate, Alert and oriented to time, place, person, mood and affect She is to follow-up with wound care and plastic surgery as well as her primary care doctor. Rest of management as above. - Physical Exam Vital Signs Temp Pulse Resp BP Pulse Ox 98.1 F 96 18 111/69 97 06/09/19 10:15 06/09/19 10:15 06/09/19 10:15 06/09/19 10:15 06/09/19 10:15 Oxygen Flow Rate (L/min) 3 Oxygen Delivery Method Room Air Weight: 175 lb 7.807 oz Body Mass Index (BMI) 34.3 Finger Stick Blood Glucose 117 Intake and Output for Last 24 Hours 06/07/19 06/08/19 06/09/19 23:59 23:59 23:59 Intake Total 1220 / 2020 3651 / 4838 1704 / 1704 Output Total 2500 / 4000 2300 / 2300 Balance 1220 / 1820 1151 / 838 -596 / -596 Microbiology Past 72 Hours 06/06/19 20:15 Gram Stain - Final Tissue - Finger Wound Culture - Preliminary No growth-Final to follow Anaerobic Culture - Preliminary No growth in 48 hours. 06/05/19 13:25 Blood Culture - Preliminary Blood Culture (Wb) - Left Forearm No growth in 48 hours. 06/05/19 13:15 Blood Culture - Preliminary Blood Culture (Wb) - Anticubital Left No growth in 48 hours. Laboratory Tests Past 24 Hrs 06/08/19 06/09/19 06/09/19 05:58 04:59 04:59 WBC 9.6 RBC 3.24 L Hgb 10.8 L Hct 33.7 L MCV 104.0 H MCH 33.3 H MCHC 32.0 RDW Std Deviation 49.6 H RDW Coeff of Ramana 13.0 Plt Count 192 MPV 9.8 Sodium 146 H Potassium 4.9 Chloride 113 H Carbon Dioxide 26.0 Anion Gap 7 BUN 28 H Creatinine 1.13 H Estim Creat Clear Calc 39.93 Est GFR (MDRD) Af Amer 64 Est GFR (MDRD) Non-Af 53 L BUN/Creatinine Ratio 24.8 H Glucose 106 Hemoglobin A1c 6.3 Calcium 8.5 POC Glucose 06/09/19 06/08/19 06/08/19 06:08 21:24 16:20 POC Glucose 111 H 135 H 125 H Discharge Diet: Low fat/ Low Cholesterol Discharge Activity: Return to Normal Activity Weight Bearing Status: Weight bearing as tolerated Call your doctor if you observe: Fever of 101 or Higher, Coldness, Increased Pain Home Medications: Medications to take at Discharge Duloxetine Hcl [Cymbalta] 60 mg PO QHS 03/15/15 Gabapentin [Neurontin] 600 mg PO QHS 03/15/15 Levothyroxine [Synthroid] 75 mcg PO MOWETHFRSA 03/15/15 Lisinopril [Zestril] 40 mg PO QHS 03/15/15 Metoprolol(XL)Succ [Toprol Xl (Beta Laurel)] 50 mg PO QHS 03/15/15 metFORMIN HCl [Glucophage] 1,000 mg PO BIDCM 03/15/15 busPIRone [Buspar] 10 mg PO BID 07/31/17 Meclizine HCl 25 mg PO Q8H PRN PRN #20 tab 05/21/19 ALPRAZolam [Xanax] 0.5 mg PO QHS PRN 06/05/19 Cholecalciferol (Vitamin D3) [Vitamin D3] 2,000 unit PO DAILY 06/05/19 Hydrocodone/Acetaminophen [Hydrocodone-Acetamin 10-325 mg] 1 tab PO Q8H PRN 06/05/19 Levothyroxine Sodium 150 mg PO SUTU 06/05/19 Multivitamin [Multivitamins] 1 ea PO DAILY 06/05/19 Simvastatin 20 mg PO QHS 06/05/19 Ubidecarenone [Coq-10] 200 mg PO DAILY 06/05/19 Ceftriaxone 2 gm IV Q24 #14 vial 06/08/19 Following Prescrptions Were Given to Patient: Ceftriaxone 2 gm IV Q24 #14 vial Prescription Printed Primary Care Physician: Aparna Doran NP-C [Primary Care Provider] - Please follow up with your Primary Care Physician in: one week Please Follow Up With: [facility] Central Registration for IV antibiotic When: Wednesday Please Follow Up With: [facility] ED Registration for IV antibiotic When: Wednesday Please Follow Up With: [facility] Outpatient Infusion Clinic When: Wednesday Please Follow Up With: Fernando Vera MD When: one week Patient Instructions: Cellulitis Disposition: Home Minutes spent on discharge:: 45 Patient Condition:: Stable Medical Necessity - Tobacco Use Smoking Status: Former smoker Tobacco Use: Cigarettes Meaningful Use Info Meaningful Use Diagnoses (Choose all that apply): None applicable Code Visit Inpatient E&M: 78783 Disch Hosp
[2019-06-09 11:55] LABS: Bedside Glucose 131 mg/dL (70-110)
--- NOTE | 2019-06-09 17:53 | PCM.PN.SRG ---
Subjective: Postop #3 Patient resting comfortably. Tolerated Silver dressing change reasonably well. - Physical Exam General: Alert, Oriented x3 HEENT: PERRLA, EOMI Oral: Moist Mucosa Neck: Supple Abdomen: Soft, Non-Distended Extremities: Edema - mild edema right hand., Peripheral Pulses Normal Skin: Ulcer/ Wound - wounds right ring finger (dorsal and volar) and dorsum right hand are stable. Minimal bleeding seen easily controlled with compression. No vascular compromise noted on the skin. Ring finger is viable. Swelling is less. Redness resolved. Tolerated the Silver dressing changes reasonably well with po analgesia. Neurological: Cranial nerves II-XII grossly intact Psych/Mental Status: Normal Affect, Appropriate Vital Signs Temp Pulse Resp BP Pulse Ox 98.1 F 96 18 111/69 97 06/09/19 10:15 06/09/19 10:15 06/09/19 10:15 06/09/19 10:15 06/09/19 10:15 Oxygen Flow Rate (L/min) 3 Oxygen Delivery Method Room Air Weight: 175 lb 7.807 oz Body Mass Index (BMI) 34.3 Finger Stick Blood Glucose 117 Intake and Output for Last 24 Hours 06/07/19 06/08/19 06/09/19 23:59 23:59 23:59 Intake Total 1220 / 2020 3651 / 4838 1704 / 1704 Output Total 2500 / 4000 2300 / 2300 Balance 1220 / 1820 1151 / 838 -596 / -596 Microbiology Past 72 Hours 06/06/19 20:15 Gram Stain - Final Tissue - Finger Wound Culture - Preliminary No growth-Final to follow Anaerobic Culture - Preliminary No growth in 48 hours. 06/05/19 13:25 Blood Culture - Preliminary Blood Culture (Wb) - Left Forearm No growth in 48 hours. 06/05/19 13:15 Blood Culture - Preliminary Blood Culture (Wb) - Anticubital Left No growth in 48 hours. Laboratory Tests Past 24 Hrs 06/09/19 06/09/19 04:59 04:59 WBC 9.6 RBC 3.24 L Hgb 10.8 L Hct 33.7 L MCV 104.0 H MCH 33.3 H MCHC 32.0 RDW Std Deviation 49.6 H RDW Coeff of Ramana 13.0 Plt Count 192 MPV 9.8 Sodium 146 H Potassium 4.9 Chloride 113 H Carbon Dioxide 26.0 Anion Gap 7 BUN 28 H Creatinine 1.13 H Estim Creat Clear Calc 39.93 Est GFR (MDRD) Af Amer 64 Est GFR (MDRD) Non-Af 53 L BUN/Creatinine Ratio 24.8 H Glucose 106 Calcium 8.5 POC Glucose 06/09/19 06/09/19 06/08/19 11:50 06:08 21:24 POC Glucose 131 H 111 H 135 H Medical Necessity - Tobacco Use Smoking Status: Former smoker Tobacco Use: Cigarettes Assessment/Plan All Active Problems Nondisplaced fracture of middle phalanx of right ring finger, initial encounter for open fracture (Acute) Compartment syndrome of right hand (Acute) Flexor tenosynovitis of finger (Acute) Abscess of finger of right hand (Acute) Cellulitis of finger, right (Acute) Open bite of right ring finger without damage to nail (Acute) Dog bite (Acute) cellulitis of the right fourth digit (Acute) Open fracture of middle phalanx of finger of right hand (Acute) 1. Necrotizing dog bite infection abscess dorsum right ring finger and volar right ring finger with cellulitis. 2. Flexor tenosynovitis right ring finger. 3. Traumatic extensor tendon injury with partial tendon loss from dog bite right ring finger (zone 2). 4. Compartment syndrome dorsal interosseous muscles right hand. 5. Nondisplaced fracture base of middle phalanx right ring finger from dog bite. 6. Diabetes mellitus. 7. s/p surgical preparation dorsum right ring finger with incision and drainage and excisional debridement necrotizing dog bite infection abscess (2.25 cm2) and surgical preparation volar right ring finger with incision and drainage and excisional debridement necrotizing dog bite infection abscess (2.7 cm2) and incision and drainage tendon sheath for flexor tenosynovitis right ring finger and excisional debridement traumatic extensor tendon injury with tendon loss from dog bite (zone 2) and fasciotomies dorsal interosseus muscles x4 right hand for compartment syndrome. Wounds are clean. Minimal bleeding seen easily controlled with compression. No clinical evidence of further infection. Wounds redressed with Silver dressing. She tolerated reasonably well with po analgesia. OK for discharge from my standpoint. Will continue Ceftriaxone post-discharge for 2 weeks then reassess to see if further IV antibiotics are necessary. Prealbumin was 22.0. Encourage nutritional supplementation with protein to help the healing process. With the degree of pus that was seen near and around the tendons, will need a PICC line and IV antibiotics after discharge. If the cultures are negative, would start with 2 weeks of IV antibiotics. If the cultures are positive, would need 6 weeks of IV antibiotics. After discharge, will need OT for range of motion exercises, strengthening, and edema management. Followup office one week. Wrote script for Percocet for pain (50 tabs). Wrote script for Diflucan since she states she gets a yeast infection when on antibiotics.
--- NOTE | 2019-06-13 12:25 | CASEMGMT ---
ANIA BLANCO DC PHONE CALL DC DATE: 06/09/19 DC Disposition: Home Diagnosis on Discharge: kAbscess of finger of R hand, cellulitis LACE/STRATA: 09/10 Intro role of CM to patient via phone. Pt denies questions re: instructions, medications or f/u. Pt is receiving her IV antibiotics outpt and states this is going well. No care improvement suggestions given, and f/u with physicians is made. Yomi ALTAMIRANON RN ACM
== END 2019-06-09 14:19 | disposition home or self-care (01) | DRG 580 ==
LOC: ED 16:43 → PCU 17:41 → MS3 06-06 16:22
PROVIDERS: Hospitalist; Physician Assistant; Surgery; Admitting Provider Internal Medicine; Emergency Provider Emergency Medicine; Family Provider Nurse Practitioner; PCP Nurse Practitioner; Visit Provider Student in an Organized Health Care Education/Training Program
PROC: 0H9FXZZ Drainage of Right Hand Skin, External Approach (ICD-10-PCS; principal; 2019-06-06 15:20)
DX: L03.113 Cellulitis of right upper limb (principal); T79.A11A Traumatic compartment syndrome of right upper extremity, initial encounter; M65.9 Synovitis and tenosynovitis, unspecified; S62.65 Nondisplaced fracture of middle phalanx of finger; W54.0XXD Bitten by dog, subsequent encounter; F32.9 Major depressive disorder, single episode, unspecified; E78.5 Hyperlipidemia, unspecified; I10 Essential (primary) hypertension; E03.9 Hypothyroidism, unspecified; E11.9 Type 2 diabetes mellitus without complications; Z87.891 Personal history of nicotine dependence; Z79.899 Other long term (current) drug therapy; Z79.84 Long term (current) use of oral hypoglycemic drugs; E66.01 Morbid (severe) obesity due to excess calories; F41.9 Anxiety disorder, unspecified; Z68.34 Body mass index [BMI] 34.0-34.9, adult
CPT/HCPCS: 36415; 36569; 73130; 73200; 80048; 80202; 82962; 83036; 84134; 85025; 85027; 87015; 87040; 87070; 87075; 87102; 87116; 87176; 87205; 87206; 88304; 88305; 88312; 97110; 97802; 99218; 99285; J7030; J7040; J7050; A4216; G0378; J0295; J0696; J2405

== ENCOUNTER 2019-06-10 09:46 | Outpatient (CLI) | payer OTHER, SELFPAY ==
[2019-06-06 07:21] VITALS: BMI 34.3
[2019-06-10 10:04] VITALS: BP 128/72; PULSE 80; RESP 16; TEMP 36.4; O2SAT 97; BMI 34.2
[2019-06-10] MEDS: 0.9% NaCl IVPB Med Flush (250 mL) 15 ML IV (10:15)
[2019-06-10] MEDS: 0.9% NaCl PICC Flush IV (10:51)
[2019-06-10 10:54] VITALS: BP 127/77; PULSE 73; RESP 16; TEMP 36.7; O2SAT 100; BMI 34.2
== END 2019-06-10 10:57 | disposition home or self-care (01) ==
LOC: MEDOUTP 09:47 → ICU 09:50
PROVIDERS: Family Provider Nurse Practitioner; PCP Nurse Practitioner; Referring Provider Surgery; Visit Provider Surgery
DX: L02.511 Cutaneous abscess of right hand (principal); L03.011 Cellulitis of right finger; M65.9 Synovitis and tenosynovitis, unspecified
CPT/HCPCS: 96365; J7050; A4216; J0696

== ENCOUNTER 2019-06-11 10:10 | Outpatient (CLI) | payer OTHER, SELFPAY ==
[2019-06-06 07:21] VITALS: BMI 34.3
[2019-06-10 10:54] VITALS: BMI 34.2
[2019-06-11] MEDS: 0.9% NaCl IVPB Med Flush (250 mL) 15 ML IV (10:41)
[2019-06-11] MEDS: 0.9% NaCl PICC Flush IV ×2 (10:41→11:34)
[2019-06-11 11:37] VITALS: BP 146/83; PULSE 77; RESP 16
== END 2019-06-11 11:35 | disposition home or self-care (01) ==
LOC: IV 10:14 → MS3 10:22
PROVIDERS: Family Provider Nurse Practitioner; PCP Nurse Practitioner; Visit Provider Surgery
DX: T79.A11A Traumatic compartment syndrome of right upper extremity, initial encounter (principal); L03.011 Cellulitis of right finger; L02.511 Cutaneous abscess of right hand; M65.9 Synovitis and tenosynovitis, unspecified; S61.254A Open bite of right ring finger without damage to nail, initial encounter; W54.0XXA Bitten by dog, initial encounter
CPT/HCPCS: 96365; J7050; A4216; J0696

== ENCOUNTER → 2019-06-12 | Outpatient (CLI) | payer OTHER, SELFPAY ==
[2019-06-06 07:21] VITALS: BMI 34.3
[2019-06-10 10:54] VITALS: BMI 34.2
[2019-06-12] MEDS: Ceftriaxone 2 GM in 0.9% NS 50 ML Minibag x1 IV (09:41)
[2019-06-12 09:43] VITALS: BP 154/75; PULSE 80; RESP 16; TEMP 36.6; BMI 75.3
== END | disposition home or self-care (01) ==
LOC: MEDOUTP 09:21
PROVIDERS: Family Provider Nurse Practitioner; PCP Nurse Practitioner; Referring Provider Surgery; Visit Provider Surgery
DX: T79.A11A Traumatic compartment syndrome of right upper extremity, initial encounter (principal); M65.9 Synovitis and tenosynovitis, unspecified; L03.011 Cellulitis of right finger; L02.511 Cutaneous abscess of right hand; S61.254A Open bite of right ring finger without damage to nail, initial encounter; W54.0XXA Bitten by dog, initial encounter
CPT/HCPCS: 96365; J7050; A4216; J0696

== ENCOUNTER → 2019-06-13 | Outpatient (CLI) | payer OTHER, SELFPAY ==
[2019-06-06 07:21] VITALS: BMI 34.3
[2019-06-12 09:43] VITALS: BMI 75.3
[2019-06-13 09:43] VITALS: BP 147/85; PULSE 76; RESP 16; TEMP 36.8; O2SAT 99; BMI 34.2
[2019-06-13] MEDS: Ceftriaxone 2 GM in 0.9% NS 50 ML Minibag x1 IV (09:49)
== END | disposition home or self-care (01) ==
LOC: MEDOUTP 09:33
PROVIDERS: Family Provider Nurse Practitioner; PCP Nurse Practitioner; Referring Provider Surgery; Visit Provider Surgery
DX: T79.A11A Traumatic compartment syndrome of right upper extremity, initial encounter (principal); L03.011 Cellulitis of right finger; L02.511 Cutaneous abscess of right hand; M65.9 Synovitis and tenosynovitis, unspecified; S61.254A Open bite of right ring finger without damage to nail, initial encounter; W54.0XXA Bitten by dog, initial encounter
CPT/HCPCS: 96365; J7050; A4216; J0696

== ENCOUNTER → 2019-06-14 14:24 | Outpatient (CLI) | payer OTHER, SELFPAY ==
[2019-06-06 07:21] VITALS: BMI 34.3
[2019-06-13 09:43] VITALS: BMI 34.2
[2019-06-14] MEDS: Ceftriaxone 2 GM in 0.9% NS 50 ML Minibag x1 IV (14:40)
[2019-06-14 15:04] VITALS: BP 125/74; PULSE 79; RESP 16; TEMP 36.3; O2SAT 98; BMI 34.2
== END ==
PROVIDERS: Family Provider Nurse Practitioner; PCP Nurse Practitioner; Referring Provider Surgery; Visit Provider Surgery
DX: L02.511 Cutaneous abscess of right hand (principal); L03.011 Cellulitis of right finger; M65.9 Synovitis and tenosynovitis, unspecified; T79.A11A Traumatic compartment syndrome of right upper extremity, initial encounter; W54.0XXA Bitten by dog, initial encounter
CPT/HCPCS: 96365; J7050; A4216; J0696

== ENCOUNTER → 2019-06-15 14:27 | Outpatient (CLI) | payer OTHER, SELFPAY ==
[2019-06-06 07:21] VITALS: BMI 34.3
[2019-06-14 15:04] VITALS: BMI 34.2
[2019-06-15 14:51] VITALS: BP 128/71; PULSE 51; RESP 16; O2SAT 98; BMI 34.2
[2019-06-15] MEDS: Ceftriaxone 2 GM in 0.9% NS 50 ML Minibag x1 IV (14:51)
== END ==
PROVIDERS: Family Provider Nurse Practitioner; PCP Nurse Practitioner; Referring Provider Surgery; Visit Provider Surgery
DX: L02.511 Cutaneous abscess of right hand (principal); L03.011 Cellulitis of right finger; M65.9 Synovitis and tenosynovitis, unspecified; T79.A11A Traumatic compartment syndrome of right upper extremity, initial encounter; S61.254A Open bite of right ring finger without damage to nail, initial encounter; W54.0XXA Bitten by dog, initial encounter
CPT/HCPCS: 96365; J7050; A4216; J0696

== ENCOUNTER → 2019-06-16 14:20 | Outpatient (CLI) | payer OTHER, SELFPAY ==
[2019-06-06 07:21] VITALS: BMI 34.3
[2019-06-15 14:51] VITALS: BMI 34.2
[2019-06-16 14:31] VITALS: BP 132/80; PULSE 77; RESP 16; TEMP 36.7; O2SAT 99; BMI 34.2
[2019-06-16] MEDS: Ceftriaxone 2 GM in 0.9% NS 50 ML Minibag x1 IV (14:35)
[2019-06-16 15:08] LABS: Absolute Lymphocyte Count 3.03 X10^3/uL (0.83-4.51); Absolute Neutrophil Count 7.9 X10^3/uL (2.0-7.7); Basophil# 0.06 X10^3/uL; Basophil% 0.5 % (0-1); Eosinophil# 0.32 X10^3/uL; Eosinophils% 2.6 % (0-5); Hematocrit 36.7 % (37-47); Hemoglobin 12.1 g/dL (12.0-15.0); Lymphocyte # 3.03 X10^3/ul (4.0); Lymphocyte % 24.5 % (19-41); Mean Corpuscular Hgb 33.1 pg (27.0-32.0); Mean Corpuscular Volume 100.3 fL (81-99); Monocyte% 8.1 % (0-10); NRBC Flagged by Analyzer 0 % (0-5); Neutrophil # 7.92 X10^3/uL (2.7-7.7); Neutrophil % 63.9 % (47-70); Platelet Count 289 K/mm3 (150-450); RBC Distribution Width CV 13.2 % (11.6-14.6); RBC Distribution Width SD 47.9 fl (35.1-43.9); Red Blood Count 3.66 M/mm3 (4.2-5.4); White Blood Count 12.4 K/mm3 (4.4-11.0)
[2019-06-16 15:20] LABS: AST(SGOT) 13 U/L (15-37); Alanine Aminotransfer ALT/SGPT 21 U/L (13-56); Albumin, Serum 3.5 g/dL (3.2-5.0); Alkaline Phosphatase 85 U/L (45-117); Anion Gap 7 (5-15); BUN 17 mg/dL (7-18); BUN/Creat Ratio 15.3 RATIO (10-20); CRP 3.57 mg/L (0.0-3.0); Calcium,Total 9.7 mg/dL (8.5-10.1); Chloride 108 mmol/L (98-107); Creatinine, Serum 1.11 mg/dL (0.55-1.02); EST Glomerular Filtration Rate 54 mL/min (>60); Est Glom Filt Rate - Afr Amer 65 mL/min (>60); Globulin 3.4 g/dL (2.2-4.2); Glucose 91 mg/dL (74-106); Potassium 4.2 mmol/L (3.5-5.1); Protein, Total 6.9 g/dL (6.4-8.2); Sodium Level 143 mmol/L (136-145)
[2019-06-16 15:24] LABS: Erythrocyte Sedimentation Rate 24 mm/hr (0-30)
== END ==
PROVIDERS: Family Provider Nurse Practitioner; PCP Nurse Practitioner; Referring Provider Surgery; Visit Provider Surgery
DX: L02.511 Cutaneous abscess of right hand (principal); L03.011 Cellulitis of right finger; M65.9 Synovitis and tenosynovitis, unspecified; T79.A11A Traumatic compartment syndrome of right upper extremity, initial encounter; S61.254A Open bite of right ring finger without damage to nail, initial encounter; W54.0XXA Bitten by dog, initial encounter
CPT/HCPCS: 96365; 36592; 80053; 85025; 85652; 86140; A4216; J0696

== ENCOUNTER 2019-06-17 09:50 | Outpatient (CLI) | payer OTHER, SELFPAY ==
[2019-06-06 07:21] VITALS: BMI 34.3
[2019-06-16 16:55] VITALS: BMI 34.2
[2019-06-17 10:15] VITALS: BP 135/93; PULSE 67; RESP 16; TEMP 36.6; O2SAT 100
[2019-06-17] MEDS: Ceftriaxone 2 GM in 0.9% NS 50 ML Minibag x1 IV (10:29)
[2019-06-17] MEDS: 0.9% NaCl PICC Flush IV ×2 (10:29→11:12)
== END 2019-06-17 11:14 | disposition home or self-care (01) ==
LOC: MEDOUTP 09:51 → MS3 09:56
PROVIDERS: Family Provider Nurse Practitioner; PCP Nurse Practitioner; Referring Provider Surgery; Visit Provider Surgery
DX: L03.011 Cellulitis of right finger (principal); L02.511 Cutaneous abscess of right hand; S61.254A Open bite of right ring finger without damage to nail, initial encounter; T79.A11A Traumatic compartment syndrome of right upper extremity, initial encounter; W54.0XXA Bitten by dog, initial encounter; M65.9 Synovitis and tenosynovitis, unspecified
CPT/HCPCS: 96365; A4216; J0696

== ENCOUNTER 2019-06-18 09:59 | Outpatient (CLI) | payer OTHER, SELFPAY ==
[2019-06-06 07:21] VITALS: BMI 34.3
[2019-06-16 16:55] VITALS: BMI 34.2
[2019-06-18 10:08] VITALS: BP 132/73; PULSE 63; RESP 18; TEMP 36.7; O2SAT 98
[2019-06-18] MEDS: 0.9% NaCl IVPB Med Flush (250 mL) 15 ML IV (10:10)
[2019-06-18] MEDS: Ceftriaxone 2 GM in 0.9% NS 50 ML Minibag x1 IV (10:10)
[2019-06-18] MEDS: 0.9% NaCl PICC Flush IV ×2 (10:10→10:55)
== END 2019-06-18 10:56 | disposition home or self-care (01) ==
LOC: MEDOUTP 10:01 → MS3 10:01
PROVIDERS: Family Provider Nurse Practitioner; PCP Nurse Practitioner; Visit Provider Surgery
DX: L02.511 Cutaneous abscess of right hand (principal); L03.011 Cellulitis of right finger; M65.9 Synovitis and tenosynovitis, unspecified; T79.A11A Traumatic compartment syndrome of right upper extremity, initial encounter; S61.254A Open bite of right ring finger without damage to nail, initial encounter; W54.0XXA Bitten by dog, initial encounter
CPT/HCPCS: 96365; J7050; A4216; J0696

== ENCOUNTER → 2019-06-19 14:21 | Outpatient (CLI) | payer OTHER, SELFPAY ==
[2019-06-06 07:21] VITALS: BMI 34.3
[2019-06-16 16:55] VITALS: BMI 34.2
[2019-06-19] MEDS: Ceftriaxone 2 GM in 0.9% NS 50 ML Minibag x1 IV (14:33)
[2019-06-19 14:35] VITALS: BP 131/87; PULSE 84; RESP 16; TEMP 35.7; O2SAT 97; BMI 34.2
== END ==
PROVIDERS: Family Provider Nurse Practitioner; PCP Nurse Practitioner; Referring Provider Surgery; Visit Provider Surgery
DX: S61.254A Open bite of right ring finger without damage to nail, initial encounter (principal); W54.0XXA Bitten by dog, initial encounter; L02.511 Cutaneous abscess of right hand; L03.011 Cellulitis of right finger; M65.9 Synovitis and tenosynovitis, unspecified; T79.A11A Traumatic compartment syndrome of right upper extremity, initial encounter
CPT/HCPCS: 96365; J7050; A4216; J0696

== ENCOUNTER → 2019-06-20 12:42 | Outpatient (CLI) | payer OTHER, SELFPAY ==
[2019-06-06 07:21] VITALS: BMI 34.3
[2019-06-19 14:35] VITALS: BMI 34.2
[2019-06-20 12:53] VITALS: BP 129/80; PULSE 71; RESP 16; TEMP 36.6; O2SAT 96; BMI 34.2
[2019-06-20] MEDS: Ceftriaxone 2 GM in 0.9% NS 50 ML Minibag x1 IV (12:53)
== END ==
PROVIDERS: Family Provider Nurse Practitioner; PCP Nurse Practitioner; Referring Provider Surgery; Visit Provider Surgery
DX: L02.511 Cutaneous abscess of right hand (principal); L03.011 Cellulitis of right finger; S61.254A Open bite of right ring finger without damage to nail, initial encounter; M65.9 Synovitis and tenosynovitis, unspecified; T79.A11A Traumatic compartment syndrome of right upper extremity, initial encounter; W54.0XXA Bitten by dog, initial encounter
CPT/HCPCS: 96365; A4216; J0696

== ENCOUNTER → 2019-06-21 | Outpatient (CLI) | payer OTHER, SELFPAY ==
[2019-06-06 07:21] VITALS: BMI 34.3
[2019-06-20 12:53] VITALS: BMI 34.2
[2019-06-21 13:03] VITALS: BP 130/72; PULSE 89; RESP 16; TEMP 37.1; O2SAT 99; BMI 34.2
[2019-06-21] MEDS: Ceftriaxone 2 GM in 0.9% NS 50 ML Minibag x1 IV (13:13)
== END | disposition home or self-care (01) ==
LOC: MEDOUTP 12:52
PROVIDERS: Family Provider Nurse Practitioner; PCP Nurse Practitioner; Referring Provider Surgery; Visit Provider Surgery
DX: T79.A11A Traumatic compartment syndrome of right upper extremity, initial encounter (principal); M65.9 Synovitis and tenosynovitis, unspecified; L03.011 Cellulitis of right finger; L02.511 Cutaneous abscess of right hand; S61.254A Open bite of right ring finger without damage to nail, initial encounter; W54.0XXA Bitten by dog, initial encounter
CPT/HCPCS: 96365; J7050; A4216; J0696

== ENCOUNTER → 2019-06-22 | Outpatient (CLI) | payer OTHER, SELFPAY ==
[2019-06-06 07:21] VITALS: BMI 34.3
[2019-06-21 13:03] VITALS: BMI 34.2
[2019-06-22 12:56] VITALS: BP 116/61; PULSE 81; RESP 18; TEMP 36.4; O2SAT 94; BMI 34.2
[2019-06-22] MEDS: Ceftriaxone 2 GM in 0.9% NS 50 ML Minibag x1 IV (13:01)
== END | disposition home or self-care (01) ==
LOC: MEDOUTP 12:52
PROVIDERS: Family Provider Nurse Practitioner; PCP Nurse Practitioner; Referring Provider Surgery; Visit Provider Surgery
DX: T79.A11A Traumatic compartment syndrome of right upper extremity, initial encounter (principal); M65.9 Synovitis and tenosynovitis, unspecified; L03.011 Cellulitis of right finger; L02.511 Cutaneous abscess of right hand; S61.254A Open bite of right ring finger without damage to nail, initial encounter; W54.0XXA Bitten by dog, initial encounter
CPT/HCPCS: 96365; J7050; A4216; J0696

== ENCOUNTER → 2019-06-23 | Outpatient (CLI) | payer OTHER, SELFPAY ==
[2019-06-06 07:21] VITALS: BMI 34.3
[2019-06-22 15:51] VITALS: BMI 34.2
[2019-06-23 13:24] VITALS: BP 107/80; PULSE 86; RESP 18; TEMP 36.6; O2SAT 94; BMI 34.2
[2019-06-23] MEDS: Ceftriaxone 2 GM in 0.9% NS 50 ML Minibag x1 IV (13:24)
[2019-06-23 13:32] LABS: Hematocrit 39.6 % (37-47); Hemoglobin 13.1 g/dL (12.0-15.0); Mean Corp Hgb Conc 33.1 g/dL (32-36); Mean Corpuscular Hgb 33.2 pg (27.0-32.0); Mean Corpuscular Volume 100.5 fL (81-99); Mean Platelet Vol. 10.5 fl (6.2-12.0); Platelet Count 289 K/mm3 (150-450); RBC Distribution Width SD 48.2 fl (35.1-43.9); Red Blood Count 3.94 M/mm3 (4.2-5.4); White Blood Count 10.7 K/mm3 (4.4-11.0)
[2019-06-23 13:37] LABS: Erythrocyte Sedimentation Rate 13 mm/hr (0-30)
[2019-06-23 13:47] LABS: ALB/GLOB Ratio 1.1 RATIO (0.9-2.4); AST(SGOT) 17 U/L (15-37); Alanine Aminotransfer ALT/SGPT 24 U/L (13-56); Albumin, Serum 3.9 g/dL (3.2-5.0); Alkaline Phosphatase 90 U/L (45-117); Anion Gap 5 (5-15); BUN 19 mg/dL (7-18); BUN/Creat Ratio 18.3 RATIO (10-20); CRP < 2.90 mg/L (0.0-3.0); Calcium,Total 9.1 mg/dL (8.5-10.1); Chloride 108 mmol/L (98-107); Creatinine, Serum 1.04 mg/dL (0.55-1.02); EST Glomerular Filtration Rate 58 mL/min (>60); Est Glom Filt Rate - Afr Amer 70 mL/min (>60); Globulin 3.4 g/dL (2.2-4.2); Glucose 144 mg/dL (74-106); Protein, Total 7.3 g/dL (6.4-8.2); Sodium Level 140 mmol/L (136-145)
== END | disposition home or self-care (01) ==
LOC: MEDOUTP 13:05
PROVIDERS: Family Provider Nurse Practitioner; PCP Nurse Practitioner; Referring Provider Surgery; Visit Provider Surgery
DX: T79.A11A Traumatic compartment syndrome of right upper extremity, initial encounter (principal); M65.9 Synovitis and tenosynovitis, unspecified; L03.011 Cellulitis of right finger; L02.511 Cutaneous abscess of right hand; W54.0XXA Bitten by dog, initial encounter
CPT/HCPCS: 96365; 36592; 80053; 85027; 85652; 86140; J7050; J0696

== ENCOUNTER 2019-06-24 09:43 | Outpatient (CLI) | payer OTHER, SELFPAY ==
[2019-06-22 15:51] VITALS: BMI 34.2
[2019-06-23 13:24] VITALS: BMI 34.2
[2019-06-24] MEDS: 0.9% NaCl PICC Flush IV ×2 (09:59→10:56)
[2019-06-24] MEDS: Ceftriaxone 2 GM in 0.9% NS 50 ML Minibag x1 IV (09:59)
[2019-06-24] MEDS: 0.9% NaCl IVPB Med Flush (250 mL) 15 ML IV (09:59)
== END 2019-06-24 11:00 | disposition home or self-care (01) ==
LOC: MEDOUTP 09:45 → MS3 09:47
PROVIDERS: Family Provider Nurse Practitioner; PCP Nurse Practitioner; Referring Provider Surgery; Visit Provider Surgery
DX: T79.A11A Traumatic compartment syndrome of right upper extremity, initial encounter (principal); M65.9 Synovitis and tenosynovitis, unspecified; L03.011 Cellulitis of right finger; L02.511 Cutaneous abscess of right hand; S61.254A Open bite of right ring finger without damage to nail, initial encounter; W54.0XXA Bitten by dog, initial encounter
CPT/HCPCS: 96365; J7050; A4216; J0696

== ENCOUNTER 2019-06-25 09:57 | Outpatient (CLI) | payer OTHER, SELFPAY ==
[2019-06-22 15:51] VITALS: BMI 34.2
[2019-06-23 13:24] VITALS: BMI 34.2
[2019-06-25 10:46] VITALS: BP 118/75; PULSE 81; RESP 18; TEMP 36.8; O2SAT 100
[2019-06-25] MEDS: Ceftriaxone 2 GM in 0.9% NS 50 ML Minibag x1 IV (10:46)
== END 2019-06-25 11:44 | disposition home or self-care (01) ==
LOC: MEDOUTP 09:59 → MS3 10:00
PROVIDERS: Family Provider Nurse Practitioner; PCP Nurse Practitioner; Visit Provider Surgery
DX: T79.A11A Traumatic compartment syndrome of right upper extremity, initial encounter (principal); M65.9 Synovitis and tenosynovitis, unspecified; L03.011 Cellulitis of right finger; L02.511 Cutaneous abscess of right hand; S61.254A Open bite of right ring finger without damage to nail, initial encounter; W54.0XXA Bitten by dog, initial encounter
CPT/HCPCS: 96365; J0696

== ENCOUNTER → 2019-06-26 | Outpatient (CLI) | payer OTHER, SELFPAY ==
[2019-06-22 15:51] VITALS: BMI 34.2
[2019-06-23 13:24] VITALS: BMI 34.2
[2019-06-26 13:25] VITALS: BP 106/71; PULSE 88; RESP 16; TEMP 36.8; O2SAT 99; BMI 34.2
[2019-06-26] MEDS: Ceftriaxone 2 GM in 0.9% NS 50 ML Minibag x1 IV (13:25)
== END | disposition home or self-care (01) ==
LOC: MEDOUTP 13:03
PROVIDERS: Family Provider Nurse Practitioner; PCP Nurse Practitioner; Referring Provider Surgery; Visit Provider Surgery
DX: T79.A11A Traumatic compartment syndrome of right upper extremity, initial encounter (principal); M65.9 Synovitis and tenosynovitis, unspecified; L03.011 Cellulitis of right finger; L02.511 Cutaneous abscess of right hand; S61.254A Open bite of right ring finger without damage to nail, initial encounter; W54.0XXA Bitten by dog, initial encounter
CPT/HCPCS: 96365; J7050; A4216; J0696

== ENCOUNTER → 2019-06-27 | Outpatient (CLI) | payer OTHER, SELFPAY ==
[2019-06-22 15:51] VITALS: BMI 34.2
[2019-06-26 13:25] VITALS: BMI 34.2
[2019-06-27] MEDS: Ceftriaxone 2 GM in 0.9% NS 50 ML Minibag x1 IV (13:02)
[2019-06-27 13:10] VITALS: BP 94/62; PULSE 79; RESP 16; TEMP 36.1; BMI 33.7
== END | disposition home or self-care (01) ==
LOC: MEDOUTP 12:51
PROVIDERS: Family Provider Nurse Practitioner; PCP Nurse Practitioner; Referring Provider Surgery; Visit Provider Surgery
DX: T79.A11A Traumatic compartment syndrome of right upper extremity, initial encounter (principal); M65.9 Synovitis and tenosynovitis, unspecified; L03.011 Cellulitis of right finger; L02.511 Cutaneous abscess of right hand; S61.254A Open bite of right ring finger without damage to nail, initial encounter; W54.0XXA Bitten by dog, initial encounter
CPT/HCPCS: 96365; J7050; A4216; J0696

== ENCOUNTER → 2019-06-28 12:58 | Outpatient (CLI) | payer OTHER, SELFPAY ==
[2019-06-22 15:51] VITALS: BMI 34.2
[2019-06-27 13:10] VITALS: BMI 33.7
[2019-06-28] MEDS: Ceftriaxone 2 GM in 0.9% NS 50 ML Minibag x1 IV (13:14)
[2019-06-28 13:21] VITALS: BP 110/66; PULSE 87; RESP 16; TEMP 36.6; BMI 33.0
== END ==
PROVIDERS: Family Provider Nurse Practitioner; PCP Nurse Practitioner; Referring Provider Surgery; Visit Provider Surgery
DX: S61.254A Open bite of right ring finger without damage to nail, initial encounter (principal); W54.0XXA Bitten by dog, initial encounter; L02.511 Cutaneous abscess of right hand; L03.011 Cellulitis of right finger; T79.A11A Traumatic compartment syndrome of right upper extremity, initial encounter
CPT/HCPCS: 96365; A4216; J0696

== ENCOUNTER → 2019-06-29 | Outpatient (CLI) | payer OTHER, SELFPAY ==
[2019-06-22 15:51] VITALS: BMI 34.2
[2019-06-28 13:21] VITALS: BMI 33.0
[2019-06-29] MEDS: Ceftriaxone 2 GM in 0.9% NS 50 ML Minibag x1 IV (13:11)
[2019-06-29 13:12] VITALS: BP 100/58; PULSE 95; RESP 16; TEMP 36.3; O2SAT 97; BMI 33.0
== END | disposition home or self-care (01) ==
LOC: MEDOUTP 12:53
PROVIDERS: Family Provider Nurse Practitioner; PCP Nurse Practitioner; Referring Provider Surgery; Visit Provider Surgery
DX: T79.A11A Traumatic compartment syndrome of right upper extremity, initial encounter (principal); M65.9 Synovitis and tenosynovitis, unspecified; L03.011 Cellulitis of right finger; L02.511 Cutaneous abscess of right hand; S61.254A Open bite of right ring finger without damage to nail, initial encounter; W54.0XXA Bitten by dog, initial encounter
CPT/HCPCS: 96365; J7050; A4216; J0696

== ENCOUNTER → 2019-06-30 | Outpatient (CLI) | payer OTHER, SELFPAY ==
[2019-06-22 15:51] VITALS: BMI 34.2
[2019-06-29 13:12] VITALS: BMI 33.0
[2019-06-30] MEDS: Ceftriaxone 2 GM in 0.9% NS 50 ML Minibag x1 IV (13:36)
[2019-06-30 13:51] LABS: Hemoglobin 13.8 g/dL (12.0-15.0); Mean Corp Hgb Conc 32.9 g/dL (32-36); Mean Corpuscular Hgb 32.9 pg (27.0-32.0); Mean Platelet Vol. 10.7 fl (6.2-12.0); Platelet Count 240 K/mm3 (150-450); RBC Distribution Width CV 12.7 % (11.6-14.6); White Blood Count 9.7 K/mm3 (4.4-11.0)
[2019-06-30 13:57] LABS: Erythrocyte Sedimentation Rate 13 mm/hr (0-30)
[2019-06-30 14:12] LABS: ALB/GLOB Ratio 1.2 RATIO (0.9-2.4); AST(SGOT) 15 U/L (15-37); Alanine Aminotransfer ALT/SGPT 26 U/L (13-56); Alkaline Phosphatase 107 U/L (45-117); Anion Gap 7 (5-15); BUN 17 mg/dL (7-18); BUN/Creat Ratio 17.1 RATIO (10-20); CRP < 2.90 mg/L (0.0-3.0); Calcium,Total 9.6 mg/dL (8.5-10.1); Chloride 108 mmol/L (98-107); Creatinine, Serum 0.99 mg/dL (0.55-1.02); EST Glomerular Filtration Rate 61 mL/min (>60); Est Glom Filt Rate - Afr Amer 74 mL/min (>60); Globulin 3.4 g/dL (2.2-4.2); Glucose 119 mg/dL (74-106); Potassium 4.6 mmol/L (3.5-5.1); Protein, Total 7.4 g/dL (6.4-8.2); Sodium Level 141 mmol/L (136-145)
[2019-06-30 14:21] VITALS: BP 106/71; PULSE 92; RESP 18; TEMP 37.1; O2SAT 97; BMI 33.0
== END | disposition home or self-care (01) ==
LOC: MEDOUTP 12:54
PROVIDERS: Family Provider Nurse Practitioner; PCP Nurse Practitioner; Referring Provider Surgery; Visit Provider Surgery
DX: T79.A11A Traumatic compartment syndrome of right upper extremity, initial encounter (principal); M65.9 Synovitis and tenosynovitis, unspecified; L03.011 Cellulitis of right finger; L02.511 Cutaneous abscess of right hand; S61.254A Open bite of right ring finger without damage to nail, initial encounter; W54.0XXA Bitten by dog, initial encounter
CPT/HCPCS: 96365; 36415; 80053; 85027; 85652; 86140; J7050; A4216; J0696

== ENCOUNTER 2019-07-01 09:40 | Outpatient (CLI) | payer OTHER, SELFPAY ==
[2019-06-22 15:51] VITALS: BMI 34.2
[2019-06-30 14:21] VITALS: BMI 33.0
[2019-07-01] MEDS: Ceftriaxone 2 GM in 0.9% NS 50 ML Minibag x1 IV (10:03)
[2019-07-01] MEDS: 0.9% Saline Lock 10 ML Syringe IV ×2 (10:09→10:46)
== END 2019-07-01 11:03 | disposition home or self-care (01) ==
LOC: MEDOUTP 09:41 → PCU 09:45
PROVIDERS: Family Provider Nurse Practitioner; PCP Nurse Practitioner; Referring Provider Surgery; Visit Provider Surgery
DX: T79.A11A Traumatic compartment syndrome of right upper extremity, initial encounter (principal); M65.9 Synovitis and tenosynovitis, unspecified; L03.011 Cellulitis of right finger; L02.511 Cutaneous abscess of right hand; S61.254A Open bite of right ring finger without damage to nail, initial encounter; W54.0XXA Bitten by dog, initial encounter
CPT/HCPCS: 96365; J7030; A4216; J0696

== ENCOUNTER 2019-07-02 10:12 | Outpatient (CLI) | payer OTHER, SELFPAY ==
[2019-06-22 15:51] VITALS: BMI 34.2
[2019-06-30 14:21] VITALS: BMI 33.0
[2019-07-02] MEDS: Ceftriaxone 2 GM in 0.9% NS 50 ML Minibag x1 IV (10:17)
[2019-07-02] MEDS: 0.9% NaCl IVPB Med Flush (250 mL) 15 ML IV (10:17)
[2019-07-02] MEDS: 0.9% NaCl PICC Flush IV ×2 (10:17→11:17)
[2019-07-02 10:30] VITALS: BP 110/73; PULSE 88; RESP 18; TEMP 37.1; O2SAT 100
== END 2019-07-02 11:18 | disposition home or self-care (01) ==
LOC: MEDOUTP 10:13 → MS3 10:15
PROVIDERS: Family Provider Nurse Practitioner; PCP Nurse Practitioner; Visit Provider Surgery
DX: T79.A11A Traumatic compartment syndrome of right upper extremity, initial encounter (principal); M65.9 Synovitis and tenosynovitis, unspecified; L03.011 Cellulitis of right finger; L02.511 Cutaneous abscess of right hand; S61.254A Open bite of right ring finger without damage to nail, initial encounter; W54.0XXA Bitten by dog, initial encounter
CPT/HCPCS: 96365; J7050; A4216; J0696

== ENCOUNTER → 2019-07-03 | Outpatient (CLI) | payer OTHER, SELFPAY ==
[2019-06-22 15:51] VITALS: BMI 34.2
[2019-06-30 14:21] VITALS: BMI 33.0
[2019-07-03] MEDS: Ceftriaxone 2 GM in 0.9% NS 50 ML Minibag x1 IV (13:32)
[2019-07-03 13:34] VITALS: BP 111/75; PULSE 69; RESP 16; TEMP 36.2; O2SAT 94
== END | disposition home or self-care (01) ==
LOC: MEDOUTP 12:59
PROVIDERS: Family Provider Nurse Practitioner; PCP Nurse Practitioner; Referring Provider Surgery; Visit Provider Surgery
DX: T79.A11A Traumatic compartment syndrome of right upper extremity, initial encounter (principal); M65.9 Synovitis and tenosynovitis, unspecified; L03.011 Cellulitis of right finger; L02.511 Cutaneous abscess of right hand; S61.254A Open bite of right ring finger without damage to nail, initial encounter; W54.0XXA Bitten by dog, initial encounter
CPT/HCPCS: 96365; J7050; A4216; J0696

== ENCOUNTER → 2019-07-04 | Outpatient (CLI) | payer OTHER, SELFPAY ==
[2019-06-22 15:51] VITALS: BMI 34.2
[2019-06-30 14:21] VITALS: BMI 33.0
[2019-07-04] MEDS: Ceftriaxone 2 GM in 0.9% NS 50 ML Minibag x1 IV (13:09)
[2019-07-04 13:10] VITALS: BP 120/72; PULSE 95; RESP 18; TEMP 36.2; O2SAT 99; BMI 33.0
== END | disposition home or self-care (01) ==
LOC: MEDOUTP 12:54
PROVIDERS: Family Provider Nurse Practitioner; PCP Nurse Practitioner; Referring Provider Surgery; Visit Provider Surgery
DX: T79.A11A Traumatic compartment syndrome of right upper extremity, initial encounter (principal); M65.9 Synovitis and tenosynovitis, unspecified; L03.011 Cellulitis of right finger; L02.511 Cutaneous abscess of right hand; S61.254A Open bite of right ring finger without damage to nail, initial encounter; W54.0XXA Bitten by dog, initial encounter
CPT/HCPCS: 96365; J7050; A4216; J0696

== ENCOUNTER → 2019-07-05 | Outpatient (CLI) | payer OTHER, SELFPAY ==
[2019-06-22 15:51] VITALS: BMI 34.2
[2019-07-04 13:10] VITALS: BMI 33.0
[2019-07-05 13:25] LABS: Hematocrit 40.9 % (37-47); Hemoglobin 13.6 g/dL (12.0-15.0); Mean Corp Hgb Conc 33.3 g/dL (32-36); Mean Corpuscular Hgb 33.3 pg (27.0-32.0); Mean Platelet Vol. 10.7 fl (6.2-12.0); Platelet Count 175 K/mm3 (150-450); RBC Distribution Width CV 12.9 % (11.6-14.6); RBC Distribution Width SD 47.7 fl (35.1-43.9); Red Blood Count 4.09 M/mm3 (4.2-5.4); White Blood Count 8.3 K/mm3 (4.4-11.0)
[2019-07-05 13:33] LABS: Erythrocyte Sedimentation Rate 11 mm/hr (0-30)
[2019-07-05 13:40] LABS: ALB/GLOB Ratio 1.2 RATIO (0.9-2.4); AST(SGOT) 25 U/L (15-37); Alanine Aminotransfer ALT/SGPT 41 U/L (13-56); Albumin, Serum 3.9 g/dL (3.2-5.0); Alkaline Phosphatase 103 U/L (45-117); Anion Gap 9 (5-15); BUN 19 mg/dL (7-18); BUN/Creat Ratio 16.4 RATIO (10-20); CRP 3.11 mg/L (0.0-3.0); Calcium,Total 8.9 mg/dL (8.5-10.1); Chloride 107 mmol/L (98-107); Creatinine, Serum 1.16 mg/dL (0.55-1.02); EST Glomerular Filtration Rate 51 mL/min (>60); Est Glom Filt Rate - Afr Amer 62 mL/min (>60); Globulin 3.3 g/dL (2.2-4.2); Glucose 174 mg/dL (74-106); Protein, Total 7.2 g/dL (6.4-8.2); Sodium Level 141 mmol/L (136-145)
[2019-07-05 13:50] VITALS: BP 101/68; PULSE 94; RESP 18; TEMP 36.2; O2SAT 93
== END | disposition home or self-care (01) ==
LOC: MEDOUTP 12:56
PROVIDERS: Family Provider Nurse Practitioner; PCP Nurse Practitioner; Referring Provider Surgery; Visit Provider Surgery
DX: T79.A11A Traumatic compartment syndrome of right upper extremity, initial encounter (principal); M65.9 Synovitis and tenosynovitis, unspecified; L03.011 Cellulitis of right finger; L02.511 Cutaneous abscess of right hand; S61.254A Open bite of right ring finger without damage to nail, initial encounter; W54.0XXA Bitten by dog, initial encounter
CPT/HCPCS: 36592; 80053; 85027; 85652; 86140; 87070; 87205; A4216

== ENCOUNTER → 2019-10-06 17:30 | Outpatient (CLI) | payer OTHER, SELFPAY ==
[2019-09-20 16:27] VITALS: BMI 33.0
--- NOTE | 2019-10-06 17:31 | MRI_ITS ---
HISTORY: Fourth digit injury after dog bite June 03. Infection. Continued pain and swelling to fourth digit. Evaluate for mass. A CT scan was performed of the right hand on June 05, 2019. X-rays were performed of the hand on June 05, 2019. Sixth series. 163 images. Triplane imaging. T1 and T2 fat-sat versus STIR series were obtained through the right hand. Findings: No abscess. No fluid collection. Minimal skin defect over the dorsal aspect of the fourth metacarpal at the level of the metacarpal phalangeal joint. Trace dorsal soft tissue edema over the fourth digit throughout its course. The T1 axial series best demonstrates some scar tissue that is nonedematous within the fat on the fourth phalanx along the distal lateral aspect of the fourth middle phalanx Additionally, dorsal to the distal end of the fourth proximal phalanx there is a small amount of scar tissue infiltrating throughout the dorsal fat of that fourth digit extending in a linear fashion more proximally to the fourth metacarpal. Bony alignment is normal. Marrow signal is normal. Tendon signal is normal and continuous throughout their course is both on the extensor surface and the flexor surface. Veins and arteries are normal. MRI/Upper Ext/No Jt/ wo IMPRESSION: Trace edema within the subcutaneous tissues dorsal to the fourth distal metacarpal, the fourth proximal and middle phalanges. Greater than this tiny amount of edema, however, is the loss of the normal fat surrounding the tendon and bone seen on the axial T1 images suggesting that this is nonedematous scar tissue. No osteomyelitis. No evidence for septic arthritis. No abscess. at 2332 Reported and signed by: Richard Miguel MD Electronically Signed: Richard Miguel MD at 23:31 EST Tel , Service support ,
== END ==
PROVIDERS: Family Provider Nurse Practitioner; PCP Nurse Practitioner; Referring Provider Surgery; Visit Provider Surgery
DX: L02.511 Cutaneous abscess of right hand (principal); M65.9 Synovitis and tenosynovitis, unspecified; M72.0 Palmar fascial fibromatosis [Dupuytren]; M79.89 Other specified soft tissue disorders; S62.654B Nondisplaced fracture of middle phalanx of right ring finger, initial encounter for open fracture; S66.394A Other injury of extensor muscle, fascia and tendon of right ring finger at wrist and hand level, initial encounter; T79.A11A Traumatic compartment syndrome of right upper extremity, initial encounter
CPT/HCPCS: 73218

== ENCOUNTER 2019-11-27 16:30 | Outpatient (RCR) | payer OTHER, SELFPAY ==
[2019-06-16 16:55] VITALS: BMI 34.2
[2019-06-28 13:21] VITALS: BMI 33.0
--- NOTE | 2019-06-29 07:48 | HP.OTEVAL ---
Patient's Visit Information MONICA CARLOS is a 58 year old F, referred to Occupational Therapy by Fernando Vera MD, with a diagnosis of dog bite right hand infection. Date of Evaluation: 06/28/19 Occupational Therapist: NAIMA Welch/Lissett, CHT - Subjective Subjective: This 58 year old female was seen for OT eval following a dog bite injury june 03. pt underwent Open irrigation debreidment june 06, 2019. Today she arrives with hand wrapped and reporting she can not bend her fingers. Pt states she is changing her dressing every few days. pt reports pain and tenderness as well as sharp shooting pain. - Pain right hand 7 Pain Intensity Range: 7, 9 - ROM ROM Comments: right MCP IF -20/50 PIP 0/65 DIP 0/35. right MCP MF -20/55 PIP 0/75 DIP 0/30. right MCP RF -20/50 PIP 0/30 DIP 0/0. right MCP LF -20/45 PIP 0/60 DIP 0/35. left hand demo ROM WNL - Strength Strength Comments: will test later date - In-Hand Manipulation Finger to Palm Translation: Unable - Right, Normal - Left Palm to Finger Translation: Unable - Right, Normal - Left Shift: Unable - Right, Normal - Left Rotation: Unable - Right, Normal - Left - Quick DASH-Disab of Arm,Shoulder& Hand Quick DASH Score: 90.0000 - Hand/Wrist Evaluation Total Score of Pain & Functional Sections: 82 - Goals Goal:: PT will demo an increase in camp head counselor strength by 40# to increase independent with basic occupations of daily living to return pt to OF by D/C. Pt will demo an increase in lateral and tripod pinch by 8# to increase pts independent with opening baggies, containers at OF by D/C. Goal:: Pt will demo an increase in wrist ROM equal to unaffected wrist to return pt to PLOF with grooming, dressing and home mtg tasks by D/C. Pt will demo the ability to form a composite fist to return to performing BADLs and IADLS at OF by d/c. Pt will demo the ability to form a composite fist to hold and receive 10 coins without dropping coins/ and coin manipulation/money mtg. tasks by D/C. Goal:: pt will report pain no greater than 2/10 with use of right hand with ADLS and IADLs by D/C Goal:: Pt will demo understanding of scar mtg. by end of 2nd session to increase tissue extensibility to limit scar adhesions and allow full tendons function by d/c. - Rehabilitation General Assessment: 06/06/19 where she underwent surgical preparation dorsum right ring finger with incision and drainage and excisional debridement necrotizing dog bite infection abscess (2.25 cm2) and surgical preparation volar right ring finger with incision and drainage and excisional debridement necrotizing dog bite infection abscess (2.7 cm2) and incision and drainage tendon sheath for flexor tenosynovitis right ring finger and excisional debridement traumatic extensor tendon injury with partial tendon loss from dog bite (zone 2) and fasciotomies dorsal interosseus muscles x4 right hand for compartment syndrome. She was discharged from the hospital on 06/09/19. Today pt demo with 6 areas of healing wounds- limited ROM of right hand- pt unable to bend RF without pain- pt is using tripod pinch with tasks at home but limited IND. as pt is right handed. Pt is unable to work at this time due to open wounds and limited ROM for ADLS, IADLS and work tasks. Pt would benefit from skilled OT services 2-3x week for 8 weeks to regain pts functional ROM, and strength for pt to return to her PLOF with job tasks and ADLS tasks. Today pt was ed on ROM ex and wound healing. pt demo understanding of ex and agree to POC. Rehabilitation Potential: Good - Anticipated Interventions Anticipated Interventions: A/AAROM/PROM, Strengthening, Scar Care, Triggerpoint Release, Desensitization, Sensory Retraining, Wound Care, Modalities, Orthoses, Joint Protection/Energy Conservation, Fine Motor Coord/Darren, ADL Training - Visit Plan Frequency: 2-3x /Week Duration: 6 Weeks TEXT: Thank you for the opportunity to evaluate your patient. For Medicare and Medicare HMO plans, please review the plan of care and approve it. It will need to be FAXED BACK to us at [phone] for Medicare purposes. Please let me know if there are questions or concerns regarding this plan of care. Physician Signature: Date:
--- NOTE | 2019-08-16 17:10 | HP.OTREVAL ---
Fernando Vera MD, It has been my pleasure to treat MONICA CARLOS over the last 8 visits for dog bite right hand infection. Please see the progress note below for an update on the occupational therapy plan of care! Subjective: pt states she is OK- no big changes - pt states scar still sensitive and finger is a challenge to move and use with daily occupations Objective/Function: right RF PIP 70. right RF MCP 65. right RF DIP 20. right panel wirer strength 13# left panel wirer strength is 47#. pt is making gains with ROM and strength but continues to be compromised with use of right hand with daily tasks. Plan Frequency: 2-3x /Week Duration: 6 Weeks Plan: pt would benefit from skilled OT services Goals - Goals Goal:: PT will demo an increase in panel wirer strength by 40# to increase independent with basic occupations of daily living to return pt to OF by D/C. Pt will demo an increase in lateral and tripod pinch by 8# to increase pts independent with opening baggies, containers at PLOF by D/C. Goal:: Pt will demo an increase in wrist ROM equal to unaffected wrist to return pt to PLOF with grooming, dressing and home mtg tasks by D/C. Pt will demo the ability to form a composite fist to return to performing BADLs and IADLS at PLOF by d/c. Pt will demo the ability to form a composite fist to hold and receive 10 coins without dropping coins/ and coin manipulation/money mtg. tasks by D/C. Goal:: pt will report pain no greater than 2/10 with use of right hand with ADLS and IADLs by D/C Goal:: Pt will demo understanding of scar mtg. by end of 2nd session to increase tissue extensibility to limit scar adhesions and allow full tendons function by d/c. Anticipated Interventions Anticipated Interventions: A/AAROM/PROM, Strengthening, Scar Care, Triggerpoint Release, Desensitization, Sensory Retraining, Wound Care, Modalities, Orthoses, Joint Protection/Energy Conservation, Fine Motor Coord/Darren, ADL Training Please do not hesitate to contact me at [phone] by phone or if you have questions or concerns regarding this new plan of care! Sincerely, Alba Whiting, OTR/L, CHT
--- NOTE | 2020-01-17 08:14 | HP.OT.NRP ---
HP - Discharge Summary - Patient Information MONICA CARLOS was seen in my office for initial evaluation on 06/28/19. The following Plan of Care was established for this patient: Initial Frequency: 2-3x /Week Initial Duration: 6 Weeks Plan: cont with desensitization - Anticipated Interventions Anticipated Interventions: A/AAROM/PROM, Strengthening, Scar Care, Triggerpoint Release, Desensitization, Sensory Retraining, Wound Care, Modalities, Orthoses, Joint Protection/Energy Conservation, Fine Motor Coord/Darren, ADL Training This patient was last seen in our office 11/27/19. Pertinent comments regarding their Occupational therapy will appear below: pt was seen for 18 visits following a dog bite and infection of right hand- pt progressed well with ROM but still hypersensitive- pt demo understanding to cont with desensitization daily- pt has not scheduled further apts pt d/c at this time due to time lapse in services. At this point I will be discontinuing this patient from occupational therapy. I would be happy to see this patient again in the future if found appropriate by the physician. Thank you! Alba Whiting, OTR/L, CHT
== END 2019-11-27 19:00 | disposition home or self-care (01) ==
LOC: OT 16:30
PROVIDERS: Family Provider Nurse Practitioner; PCP Nurse Practitioner; Referring Provider Surgery; Visit Provider Surgery
DX: S61.254D Open bite of right ring finger without damage to nail, subsequent encounter (principal); W54.0XXD Bitten by dog, subsequent encounter; L02.511 Cutaneous abscess of right hand; M65.9 Synovitis and tenosynovitis, unspecified; T79.A11D Traumatic compartment syndrome of right upper extremity, subsequent encounter; S62.654D Nondisplaced fracture of middle phalanx of right ring finger, subsequent encounter for fracture with routine healing; S66.39 Other injury of extensor muscle, fascia and tendon of other and unspecified finger at wrist and hand level
CPT/HCPCS: 97035; 97110; 97140; 97166; 97530

== ENCOUNTER → 2019-12-01 07:27 | Outpatient (CLI) | payer OTHER, SELFPAY ==
[2019-11-16 16:19] VITALS: BMI 33.0
[2019-12-01 07:46] LABS: Potassium 4.5 mmol/L (3.5-5.1)
== END ==
PROVIDERS: PCP Nurse Practitioner; Referring Provider Nurse Practitioner; Visit Provider Nurse Practitioner
DX: E87.5 Hyperkalemia (principal)
CPT/HCPCS: 36415; 84132

== ENCOUNTER → 2019-12-07 16:21 | Outpatient (CLI) | payer OTHER, SELFPAY ==
[2019-11-16 16:19] VITALS: BMI 33.0
--- NOTE | 2019-12-07 16:24 | RAD_ITS ---
STUDY: X-RAY - RIGHT KNEE REASON FOR EXAM: Female, 59 years old. right knee pain TECHNIQUE: 4 view(s) of the knee. COMPARISON: None. FINDINGS: Normal visualized distal femur. Normal visualized proximal tibia and fibula. Normal proximal tibiofibular articulation. There is mild degenerative arthrosis of the medial femorotibial compartment. Normal lateral femorotibial compartment. Normal patellofemoral articulation. The soft tissue structures are unremarkable. RAD/Knee 4 or More Views IMPRESSION: Mild degenerative changes with joint space narrowing of the medial knee compartment. Electronically Signed: Marlo Velasquez MD at 23:53 EST , Service support ,
--- NOTE | 2019-12-07 16:24 | RAD_ITS ---
STUDY: X-RAY - LUMBAR SPINE REASON FOR EXAM: Female, 59 years old. sciatica of right side TECHNIQUE: 5 view(s) of the lumbar spine were obtained. COMPARISON: Prior study of 02/16/2017 FINDINGS: Normal lumbar lordosis. There is no substantial scoliosis. There is a minimal grade 1 anterolisthesis of L4 relative to L5. There is mild diffuse endplate spondylosis of the lumbar vertebrae. There is narrowing of the L3-4, L4-5, and L5-S1 disc spaces. There are calcified plaques of the abdominal aorta. RAD/L/S Spine Min 4 Views IMPRESSION: Degenerative changes of the spine, as detailed above. Findings are similar to the previous study. Electronically Signed: Marlo Velasquez MD at 23:55 EST , Service support ,
== END ==
PROVIDERS: PCP Nurse Practitioner; Referring Provider Nurse Practitioner; Visit Provider Nurse Practitioner
DX: M54.31 Sciatica, right side (principal); M25.561 Pain in right knee
CPT/HCPCS: 72110; 73564

== ENCOUNTER → 2020-09-25 12:49 | Outpatient (CLI) | payer OTHER, SELFPAY ==
[2020-07-11 16:23] VITALS: BMI 33.0
[2020-09-25 13:13] LABS: Albumin, Serum 4.2 g/dL (3.2-5.0); BUN 14 mg/dL (7-18); BUN/Creat Ratio 14.5 RATIO (10-20); Calcium,Total 9.8 mg/dL (8.5-10.1); Chloride 108 mmol/L (98-107); Creatinine, Serum 0.96 mg/dL (0.55-1.02); EST Glomerular Filtration Rate 63 mL/min (>60); Est Glom Filt Rate - Afr Amer 77 mL/min (>60); Glucose 102 mg/dL (74-106); Phosphorus 3.5 mg/dL (2.5-4.9); Potassium 4.8 mmol/L (3.5-5.1); Sodium Level 141 mmol/L (136-145)
== END ==
PROVIDERS: PCP Nurse Practitioner; Referring Provider Nurse Practitioner; Visit Provider Nurse Practitioner
DX: R79.89 Other specified abnormal findings of blood chemistry (principal)
CPT/HCPCS: 80069

== ENCOUNTER → 2022-03-03 | Outpatient (CLI) | payer BC, SELFPAY ==
--- NOTE | 2022-03-03 13:50 | RAD_ITS ---
STUDY: X-RAY - RIGHT FOOT CLINICAL: Female, 61 years old. Pain and stiffness TECHNIQUE: 3 view(s) of the foot. COMPARISON: None. FINDINGS: Normal talus and tarsal bones. Calcaneal spurs Normal visualized subtalar, talonavicular, calcaneocuboid, tarsal and tarsometatarsal articulations. Normal metatarsi. There is degenerative arthrosis of the metatarsophalangeal joint of the hallux with a hallux valgus deformity. Normal tibial and fibular sesamoid bones. Normal interphalangeal joint of the great toe. Normal phalanges of the great toe. Normal second through fifth metatarsophalangeal joints. PIP and DIP joint arthrosis without fracture or subchondral change The soft tissue structures are unremarkable. RAD/Foot min 3 Views IMPRESSION: Calcaneal spurs with degenerative arthrosis, no demonstrated fracture Electronically Signed: Hardik Smtih MD at 16:48 EDT ,
== END | disposition home or self-care (01) ==
LOC: MTRAD 13:46
PROVIDERS: PCP Nurse Practitioner; Referring Provider Podiatrist; Visit Provider Podiatrist
DX: M77.41 Metatarsalgia, right foot (principal)
CPT/HCPCS: 73630

== ENCOUNTER → 2022-08-17 | Outpatient (CLI) | payer BC, SELFPAY ==
--- NOTE | 2022-08-17 16:40 | CT_ITS ---
STUDY: CT ABDOMEN WITH CONTRAST REASON FOR EXAM: Female, 61 years old. ADRENAL LESION RADIATION DOSAGE (If Supplied By Facility): CTDIvol = ( 14.67 ) mGy, DLP = ( 757.17 ) mGycm TECHNIQUE: Transaxial images were obtained post I.V. administration of IV 100mL Isovue-370, and oral contrast. Sagittal and coronal images were reconstructed. Individualized dose optimization techniques were used for this CT. COMPARISON: 09/13/2018 FINDINGS: The visualized lung bases are unremarkable. The visualized portions of the heart are within normal limits. There is elongation of the right lobe of the liver. Liver is diffusely fatty infiltrated without mass or bile duct dilatation. Gallbladder not visualized status post cholecystectomy Normal spleen. Normal pancreas. Right adrenal is normal. There is a heterogeneous appearing left adrenal nodule measuring approximately 1.92 x 1.5 cm of uncertain etiology. No evidence for renal obstruction. There are 2 left renal cysts and a complex cyst in the right lobe which appear stable in size since prior exam. Normal visualized stomach. Normal small intestine. Normal colon. The appendix is visualized and appears normal. Atherosclerotic changes of the aorta without evidence for aneurysm.. Normal inferior vena cava. Normal retroperitoneum. Normal abdominal wall. Normal osseous structures. There is very minimal increase in size of the left adrenal nodule since previous study. CT/Abdomen WITH IV Contrast IMPRESSION: Persistent left adrenal nodule with minimal increase in size since prior exam and stable appearance of right renal complex cyst. MRI would be useful for further evaluation if clinically indicated Electronically Signed: Loc Guzman MD at 17:47 EDT ,
== END | disposition home or self-care (01) ==
PROVIDERS: PCP Nurse Practitioner Family; Referring Provider Internal Medicine; Visit Provider Internal Medicine
DX: N28.9 Disorder of kidney and ureter, unspecified (principal)
CPT/HCPCS: 74160; Q9967

== ENCOUNTER → 2022-10-23 | Outpatient (CLI) | payer BC, SELFPAY ==
--- NOTE | 2022-10-23 16:36 | RAD_ITS ---
STUDY: X-RAY - RIGHT HAND REASON FOR EXAM: Female, 61 years old. pain in right ring finger and right small finger -- history of surgery and recent trauma TECHNIQUE: 3 view(s) of the hand. COMPARISON: 06/05/2019 FINDINGS: Normal radiocarpal articulation. Normal distal radioulnar joint. Normal visualized carpal bones. Normal carpal articulations Normal carpometacarpal articulation of the thumb. Normal second through fifth carpometacarpal joints. Normal metacarpi. Normal metacarpophalangeal joint of the thumb. Normal interphalangeal joint of the thumb. Normal proximal and distal phalanges of the thumb. Normal metacarpophalangeal joints of the second through fifth fingers. Normal proximal and distal interphalangeal joints of the second through fifth fingers. Normal phalanges of the second through fifth fingers. The soft tissue structures are unremarkable. RAD/Hand Min 3 Views IMPRESSION: Normal x-ray examination of the hand. Electronically Signed: Bhupinder Camacho MD at 17:19 EST ,
== END | disposition home or self-care (01) ==
LOC: MTRAD 15:33
PROVIDERS: PCP Nurse Practitioner Family; Referring Provider Nurse Practitioner Family; Visit Provider Nurse Practitioner Family
DX: M79.644 Pain in right finger(s) (principal); S69.90XA Unspecified injury of unspecified wrist, hand and finger(s), initial encounter
CPT/HCPCS: 73130

== ENCOUNTER → 2022-11-11 | Outpatient (CLI) | payer BC, SELFPAY ==
--- NOTE | 2022-11-11 17:01 | MRI_ITS ---
STUDY: MRI ABDOMEN WITH AND WITHOUT CONTRAST REASON FOR EXAM: Female, 61 years old. History: COMPLEX RENAL CYST TECHNIQUE: Standardized fat and water weighted pulse sequences were obtained in all 3 orthogonal planes pre and post contrast administration. IV 16cc clariscan contrast material was administered intravenously for the contrast portion of the examination. Comparison: CT 08.17.22 FINDINGS: The visualized lung bases are unremarkable. The visualized portions of the heart are within normal limits. Normal liver. Normal gallbladder and extrahepatic biliary system. Normal spleen. Normal pancreas. There is a well circumscribed, round mass lesion of the left adrenal gland with hyperintense signal on the T1W1 gradient-echo in phase images as compared to the spleen with signal loss on the T1W1 gradient-echo opposed phase images consistent with a lipid rich adrenal adenoma. There is T2 hyperintensities of the right kidney. These are consistent for cysts. No follow up required. There is T2 hyperintensities of the left kidney. These are consistent for cysts. No follow up required. Single complex cyst of the right kidney is 22 x 19mm. Se 4 IM: 25. It has a fluid fluid level or protein fluid level. Normal visualized stomach. Normal small intestine. Normal colon. There is non-visualization of the appendix. Normal abdominal aorta. Normal inferior vena cava. Normal retroperitoneum. Normal abdominal wall. Normal osseous structures. MRI/MRI Abd WITH and W/O Contrast IMPRESSION: (NOT LISTED IN ORDER OF SIGNIFICANCE) Left adrenal adenoma. There is a complex cyst of the right kidney which may be a proteinaceous cyst versus a hemorrhagic cyst. Electronically Signed: Cricket Talbert MD at 20:05 EST ,
[2022-11-11 17:50] LABS: CREATININE FINGERSTICK < 0.9 mg/dL (0.55-1.02); EGFR FINGERSTICK > 60.0000 mL/min (>60)
== END | disposition home or self-care (01) ==
LOC: CT 16:57 → MRI 16:59
PROVIDERS: PCP Nurse Practitioner Family; Visit Provider Internal Medicine
DX: N28.1 Cyst of kidney, acquired (principal)
CPT/HCPCS: 74183; A9575; A4216

== ENCOUNTER → 2024-10-23 | Outpatient (CLI) | payer BC, SELFPAY ==
[2024-10-23 12:47] LABS: Potassium 5.3 mmol/L (3.5-5.1)
== END | disposition home or self-care (01) ==
LOC: LABSPEC 12:29
PROVIDERS: PCP Internal Medicine; Referring Provider Internal Medicine; Visit Provider Internal Medicine
DX: E11.9 Type 2 diabetes mellitus without complications (principal)
CPT/HCPCS: 84132

== ENCOUNTER → 2024-10-27 | Outpatient (CLI) | payer BC, SELFPAY | END | disposition home or self-care (01) | LOC: LABSPEC 10:16 | PROVIDERS: PCP Internal Medicine; Referring Provider Internal Medicine; Visit Provider Internal Medicine | DX: E87.5 Hyperkalemia (principal) | CPT/HCPCS: 84132 ==